=== PATIENT | male | born 1940 | race Caucasian/White ===

== ENCOUNTER 2016-08-22 16:32 | Emergency (ER) | payer OTHER ==
[~2016-08-22] VITALS: Ht 177.8 cm; Wt 116.8 kg
[~2016-08-22 16:32] MED LIST: AMOXTAB PO; B-CO1CAP5 PO; BENZ1CAP90 PO; GLUC1000 PO; LOSA1TAB PO; MISCCAP80 PO; MULT-618 PO; OXYC1TAB3 PO; PANT40TA PO; PRLSR20 PO; SPIR50TA2 PO; SULF800T23 PO
[2016-08-22 16:36] VITALS: BP 128/79; PULSE 92; TEMP 36.7; O2SAT 93; Ht 177.8 cm; Wt 116.8 kg
[2016-08-22] MEDS ORDERED: GABA1CAP4 PO (16:51)
[2016-08-22] MEDS ORDERED: ZLF/50 PO (16:51)
--- NOTE | 2016-08-22 17:05 | EMERGENCY ROOM VISIT NOTE ---
ED Visit Note First contact with patient: 16:38 Staff note: I have reviewed the Patients chart and have discussed this case with my PA. I generally agree with the ED note and findings.
[2016-08-22] MEDS ORDERED: DIPHTHERIA/TETANUS/PERTUSSIS 0.5 ML SYR/VIAL IM. ONE (17:15)
--- NOTE | 2016-08-22 20:25 | EMERGENCY ROOM VISIT NOTE ---
History First contact with patient: 16:38 Chief Complaint: BITE Stated Complaint: DOG BITE TO LEFT THUMB History of Present Illness The patient is a 75 year old male who presents to the Emergency Room with complaints of dog bite to his left thumb that occurred 5 days ago. The patient is currently on Augmentin and Bactrim for an unrelated spine infection. The patient states that he has had some redness and irritation of his thumb. The dog is his own, it has been the household had for the past 9 years since he was a puppy. The animal is up-to-date on its rabies and other appropriate immunizations. The patient himself is not up-to-date on his tetanus. He states there was clear drainage from the puncture wounds today, which is why he presents now to the ER. He rates his discomfort a 0/10. Review of Systems More than 10 systems were reviewed and otherwise negative with the exception of history of present illness. Past Medical/Surgical History Medical Problems: (1) Benign hypertension (2) Calcific coronary arteriosclerosis (3) Cardiomegaly (4) History of DVT (deep vein thrombosis) (5) History of malignant neoplasm of prostate (6) History of peptic ulcer disease (7) Hypersomnia with sleep apnea (8) OBESITY, NOS (9) Parkinson's disease (10) Spinal stenosis of lumbar region Surgical Problems: (1) H/O detached retina repair (2) H/O spinal fusion (3) Hx of cataract surgery (4) Hx of repair of left rotator cuff (5) Status post total left knee replacement Social History Problems: (1) PERIPH VASCULAR DIS NOS Family History Diabetes mellitus FH: [place] (myocardial infarction) FH: alcoholism Heart disease Hypertension Social History Smoking Status: Never Smoker Alcohol Use: none Drug Use: none Marital Status: Housing Status: lives with family Occupation Status: retired Current/Historical Medications Scheduled Amoxicillin & Pot Clavulanate (Amoxicillin/Clavulanate P), 1 TAB PO BID B-Complex W/Biotin & Folic Aci (Super B-Complex), 1 CAP PO DAILY Gabapentin (Gabapentin), 300 MG PO TID Glucosamine Sulfate (Glucosamine Sulfate), 2 TAB PO QAM Losartan Potassium (Cozaar), 25 MG PO DAILY Omeprazole (Prilosec), 20 MG PO BID Pantoprazole (Protonix), 40 MG PO DAILY Probiotic Product (Probiotic), 1 CAP PO QAM Sertraline HCl (Sertraline HCl), 50 MG PO QAM Spironolactone (Aldactone), 50 MG PO DAILY Sulfa/Trimethoprim (Bactrim Ds 800MG/160MG), 1 TAB PO BID Allergies Coded Allergies: No Known Allergies (Verified , `, 08/22/16) Physical Exam Vital Signs Date Time Temp Pulse Resp B/P Pulse Ox O2 Delivery O2 Flow Rate FiO2 08/22/16 16:36 36.7 92 18 128/79 93 Room Air Pain Rating (0-10): 0 Physical Exam VITALS: Vitals are noted on the nurse's note and reviewed by myself. Vital signs stable. GENERAL: Well-developed, well-nourished, white male, who is in no acute distress and resting comfortably. Patient is cooperative with the examination. HEAD: Normocephalic atraumatic. HEART: Regular rate and rhythm without murmurs gallops or rubs. LUNGS: Clear to auscultation bilaterally without wheezes, rales or rhonchi. No retractions or accessory muscle use. SKIN: The skin was with several well-healing puncture wounds to the left thumb. The patient is with full sensation and range of motion. No lymphangitic streaking, cellulitis, or abscess. No purulent drainage appreciated. Medical Decision & Procedures Medications Administered Medications (Trade) Dose Ordered Sig/Bro Route Start Time Stop Time Status Last Admin Dose Admin Diphtheria/ Pertussis/Tetanus Vacc (Adacel Inj) 0.5 ml ONCE ONCE IM. 08/22/16 17:15 08/22/16 17:16 DC 08/22/16 17:08 0.5 ML ED Course Physical exam and history were performed. Nursing notes and EMR were reviewed. Patient appears to have been bitten by his own dog 5 days ago. The patient needs a tetanus booster, and this is updated today. The patient is already on Augmentin and Bactrim for a previous infection, and this appears to be the appropriate regimen for this. I did discuss the case with my attending physician, Dr. Monroe, who also independently evaluated the patient. We feel the patient is stable for discharge home on his current medications. The patient was asked to follow with primary care physician in the next 2-3 days for recheck of his condition. He was otherwise invited back to ER with any new , worsening, or concerning symptoms. The chart was completed utilizing [employer] Speech Voice Recognition Software. Grammatical errors, random word insertions, pronoun errors, and incomplete sentences are an occasional consequence of this system due to software limitations, ambient noise, and hardware issues. Any formal questions or concerns about the content, text, or information contained within the body of this dictation should be directly addressed to the provider for clarification. . Medical Decision Differential diagnosis: Etiologies such as cellulitis, abscess, MRSA infection, DVT, necrotizing fasciitis, dermatitis, drug eruption, as well as others were entertained.. Impression Primary Impression: Dog bite Departure Information Dispostion Home / Self-Care Condition GOOD Referrals Marvin Demarco D.O. (PCP) Forms HOME CARE DOCUMENTATION FORM, IMPORTANT VISIT INFORMATION Patient Instructions My [facility] Additional Instructions You were seen and evaluated today on an emergency basis only. This is not a substitute for, or an effort to provide, complete comprehensive medical care. It is not possible to recognize and treat all injuries or illnesses in a single emergency department visit. For this reason it is recommended that you followup with your primary care physician on Thursday or Thursday for ongoing care and evaluation. Continue your Augmentin and Bactrim. You are welcome to return to the emergency department anytime with new, worsening, or concerning symptoms.
== END 2016-08-22 17:21 | disposition home or self-care (01) ==
LOC: C.EDB 16:33 → C.EDD 17:21
DX: S61.002A Unspecified open wound of left thumb without damage to nail, initial encounter (principal); W54.0XXA Bitten by dog, initial encounter; I10 Essential (primary) hypertension; Z85.46 Personal history of malignant neoplasm of prostate; Z96.652 Presence of left artificial knee joint; Z23 Encounter for immunization

== ENCOUNTER → 2016-10-28 | Outpatient (CLI) | payer OTHER ==
[~2016-10-28] MED LIST changes: +ANT25 PO; -BENZ1CAP90 PO; +GABA1CAP4 PO; +MECL1TAB42 PO; -MULT-618 PO; -OXYC1TAB3 PO; +ZLF/50 PO
[2016-10-28 09:43] LABS: BASO % 0.6 %; BASO ABS # 0.04 K/uL (0-0.2); COMPLETE YES; EOS % 4.1 %; HEMATOCRIT 43.4 % (42-52); IG% 0.4 %; LYMPH % 22.4 %; LYMPH ABS # 1.57 K/uL (1.2-3.4); MEAN CELL VOLUME 94.6 fL (80-100); MEAN CORPUSCULAR HGB CONC 33.9 g/dl (32-36); MEAN PLATELET VOLUME 9.5 fL (7.4-10.4); NEUT % 62.5 %; PLATELET COUNT 261 K/uL (130-400); RED BLOOD COUNT 4.59 M/uL (4.7-6.1)
[2016-10-28 09:51] LABS: ALT/SGPT 30 U/L (12-78); AST/SGOT 18 U/L (15-37); BLOOD UREA NITROGEN 10 mg/dl (7-18); BUN/CREATININE RATIO 10.9 (10-20); C-REACTIVE PROTEIN < 0.29 mg/dl (0-0.29); CARBON DIOXIDE 22 mmol/L (21-32); CHLORIDE 106 mmol/L (98-107); CREATININE 0.94 mg/dl (0.60-1.40); GLUCOSE 107 mg/dl (70-99); POTASSIUM 3.8 mmol/L (3.5-5.1); SODIUM 139 mmol/L (136-145)
[2016-10-28 09:54] LABS: ALB/GLOB RATIO 1.1 (0.9-2); ALKALINE PHOSPHATASE 82 U/L (45-117)
[2016-10-28 09:59] LABS: CALCIUM 8.7 mg/dl (8.5-10.1)
== END | disposition home or self-care (01) ==
LOC: C.LAB1850 08:31
PROVIDERS: ATTEND Physician Assistant
DX: A49.9 Bacterial infection, unspecified (principal)

== ENCOUNTER 2016-12-26 10:50 | Emergency (ER) | payer OTHER ==
[~2016-12-26] VITALS: Ht 177.8 cm; Wt 117.7 kg
[~2016-12-26 10:50] MED LIST changes: -ANT25 PO; -MECL1TAB42 PO
[2016-12-26 10:54] VITALS: TEMP 36.5
[2016-12-26] MEDS ORDERED: ANT25 PO (11:20)
[2016-12-26] MEDS ORDERED: SODIUM CHLORIDE 0.9% 1000ML 1,000 ML IV SCH (11:28)
[2016-12-26] MEDS ORDERED: SODIUM CHLORIDE 0.9% 500ML 500 ML IV STA (11:28)
[2016-12-26] MEDS ORDERED: MECLIZINE HCL 25 MG TAB PO STA (11:28)
[2016-12-26] MEDS ORDERED: ONDANSETRON INJ 2 MG/ML 2 ML VIAL IV STA (11:28)
[2016-12-26 11:42] VITALS: Ht 177.8 cm; Wt 117.7 kg
--- NOTE | 2016-12-26 11:48 | DIAGNOSTIC IMAGING REPORT ---
CHEST ONE VIEW PORTABLE CLINICAL HISTORY: Stroke mental status change COMPARISON STUDY: 04/29/2016 FINDINGS: The bones soft tissues and hemidiaphragms are normal. The cardiomediastinal silhouette is normal. The lungs are clear. The pulmonary vasculature is normal. IMPRESSION: Negative chest. The above report was generated using voice recognition software. It may contain grammatical, syntax or spelling errors. Electronically signed by: Ramírez Hyde M.D. 12/26/2016 11:47 AM Dictated Date/Time: 12/26/2016 11:46 AM
[2016-12-26 11:52] VITALS: O2SAT 95
--- NOTE | 2016-12-26 11:54 | EMERGENCY ROOM VISIT NOTE ---
History Report prepared by Louise: Leeann Robles Under the Supervision of: Dr. Vic Lowry M.D. First contact with patient: 11:20 Chief Complaint: DIZZY Stated Complaint: DIZZY, CANDY IS GOING TO CALL Nursing Triage Summary: pt reports he presented to his PCP office this AM upon assessment he had low BP, he stated he told the nurse he felt dizzy and nauseous the nurse recommended he come to the ER to be seen I did orthostatic vital signs and requested he turn off his stimulator he was not dizzy during the vital signs pt did report he took his BP medications this morning History of Present Illness The patient is a 76 year old male who presents to the Emergency Room with complaints of intermittent dizziness that started 6 days ago. The dizziness is worse with movements and resolves after lying still. Dr. Arrieta, the patient's PCP , called in about the patient and reported that the patient has been experiencing severe vertigo for the last 6 days. He reported that the patient is unable to tolerate PO fluids and is falling at home. The patient has chronic low back pain and had a stimulator placed 1 week ago. The dizziness started the day after the stimulator was placed. The patient denies abdominal pain. Source of History: patient Onset: 6 days ago Position: head Quality: other (dizziness) Timing: intermittent Modifying Factors (Worsening): movement Modifying Factors (Relieving): other (lying still) Associated Symptoms: + back pain (chronic), No abdominal pain Review of Systems See HPI for pertinent positives & negatives. A total of 10 systems reviewed and were otherwise negative. Past Medical & Surgical Medical Problems: (1) Benign hypertension (2) Calcific coronary arteriosclerosis (3) Cardiomegaly (4) History of DVT (deep vein thrombosis) (5) History of malignant neoplasm of prostate (6) History of peptic ulcer disease (7) Hypersomnia with sleep apnea (8) OBESITY, NOS (9) Parkinson's disease (10) Spinal stenosis of lumbar region Surgical Problems: (1) H/O detached retina repair (2) H/O spinal fusion (3) Hx of cataract surgery (4) Hx of repair of left rotator cuff (5) Status post total left knee replacement Social History Problems: (1) PERIPH VASCULAR DIS NOS Family History Diabetes mellitus FH: [place] (myocardial infarction) FH: alcoholism Heart disease Hypertension Social History Smoking Status: Never Smoker Alcohol Use: none Drug Use: none Marital Status: Housing Status: lives with family Occupation Status: retired Current/Historical Medications Scheduled Amoxicillin & Pot Clavulanate (Amoxicillin/Clavulanate P), 1 TAB PO BID Glucosamine Sulfate (Glucosamine Sulfate), 2 TAB PO QAM Losartan Potassium (Cozaar), 25 MG PO DAILY Meclizine HCl (Meclizine HCl), 25 MG PO TID Meclizine Hcl (Meclizine Hcl), 1 TAB PO QID Omeprazole (Prilosec), 20 MG PO BID Pantoprazole (Protonix), 40 MG PO DAILY Probiotic Product (Probiotic), 1 CAP PO QAM Sertraline HCl (Sertraline HCl), 50 MG PO QAM Spironolactone (Aldactone), 50 MG PO DAILY Sulfa/Trimethoprim (Bactrim Ds 800MG/160MG), 1 TAB PO BID Allergies Coded Allergies: No Known Allergies (Verified , `, 08/22/16) Physical Exam Vital Signs Date Time Temp Pulse Resp B/P (MAP) Pulse Ox O2 Delivery O2 Flow Rate FiO2 12/26/16 12:31 73 16 122/79 94 Room Air 12/26/16 11:52 95 Room Air 12/26/16 11:14 79 98/74 98 Room Air 89 111/76 80 108/80 12/26/16 10:54 36.5 98 18 115/71 95 Room Air Physical Exam GENERAL: Patient is a healthy-appearing well-nourished male HEAD: Normocephalic atraumatic EYES: Ocular movements intact pupils equal and react to light OROPHARYNX mucous membranes are moist no exudates present no erythema or edema present NECK: Supple no nuchal rigidity CHEST: Good equal expansion LUNGS: Clear and equal to auscultation CARDIAC: Normal S1 and S2 ABDOMEN: Soft nontender no guarding BACK: No CVA tenderness EXTREMITIES: No pain upon palpation normal muscle strength in all groups no clubbing cyanosis or edema NEURO: Patient is following commands and answering questions appropriately. Alert and oriented x3 Cranial Nerves 2-12 grossly intact Medical Decision & Procedures ER Provider Diagnostic Interpretation: Radiology results as stated below per my review and radiologist interpretation: CHEST ONE VIEW PORTABLE FINDINGS: The bones soft tissues and hemidiaphragms are normal. The cardiomediastinal silhouette is normal. The lungs are clear. The pulmonary vasculature is normal. IMPRESSION: Negative chest. The above report was generated using voice recognition software. It may contain grammatical, syntax or spelling errors. Electronically signed by: Ramírez Hyde M.D. 12/26/2016 11:47 AM Dictated Date/Time: 12/26/2016 11:46 AM HEAD WITHOUT CONTRAST (CT) Findings: The paranasal sinuses and mastoid air cells are clear. Considerable chronic small vessel change in the periventricular deep white matter regions. Chronic small vessel change in the left and to lesser extent right cerebellum. No acute intracranial hemorrhage. No midline shift. Impression: Considerable chronic small vessel change. No acute process. The above report was generated using voice recognition software. It may contain grammatical, syntax or spelling errors. Electronically signed by: Ramírez Hyde M.D. 12/26/2016 12:28 PM Dictated Date/Time: 12/26/2016 12:26 PM Laboratory Results 12/26/16 11:38 Red Blood Count 4.44, Mean Corpuscular Volume 93.7, Mean Corpuscular Hemoglobin 31.8, Mean Corpuscular Hemoglobin Concent 33.9, Mean Platelet Volume 9.1, Neutrophils (%) (Auto) 68.2, Lymphocytes (%) (Auto) 18.0, Monocytes (%) (Auto) 9.4, Eosinophils (%) (Auto) 3.6, Basophils (%) (Auto) 0.4, Neutrophils # (Auto) 4.72, Lymphocytes # (Auto) 1.25, Monocytes # (Auto) 0.65, Eosinophils # (Auto) 0.25, Basophils # (Auto) 0.03 12/26/16 11:38 Test 12/26/16 11:34 12/26/16 11:38 Bedside Prothrombin Time INR 1.0 (0.9-1.1) White Blood Count 6.93 K/uL (4.8-10.8) Red Blood Count 4.44 M/uL (4.7-6.1) Hemoglobin 14.1 g/dL (14.0-18.0) Hematocrit 41.6 % (42-52) Mean Corpuscular Volume 93.7 fL (80-100) Mean Corpuscular Hemoglobin 31.8 pg (25-34) Mean Corpuscular Hemoglobin Concent 33.9 g/dl (32-36) Platelet Count 266 K/uL (130-400) Mean Platelet Volume 9.1 fL (7.4-10.4) Neutrophils (%) (Auto) 68.2 % Lymphocytes (%) (Auto) 18.0 % Monocytes (%) (Auto) 9.4 % Eosinophils (%) (Auto) 3.6 % Basophils (%) (Auto) 0.4 % Neutrophils # (Auto) 4.72 K/uL (1.4-6.5) Lymphocytes # (Auto) 1.25 K/uL (1.2-3.4) Monocytes # (Auto) 0.65 K/uL (0.11-0.59) Eosinophils # (Auto) 0.25 K/uL (0-0.5) Basophils # (Auto) 0.03 K/uL (0-0.2) RDW Standard Deviation 46.6 fL (36.4-46.3) RDW Coefficient of Variation 13.6 % (11.5-14.5) Immature Granulocyte % (Auto) 0.4 % Immature Granulocyte # (Auto) 0.03 K/uL (0.00-0.02) Anion Gap 7.0 mmol/L (3-11) Est Creatinine Clear Calc Drug Dose 84.1 ml/min Estimated GFR () 86.6 Estimated GFR (Non- 74.7 BUN/Creatinine Ratio 13.9 (10-20) Calcium Level 9.0 mg/dl (8.5-10.1) Total Creatine Kinase 39 U/L (39-308) Creatine Kinase MB 0.8 ng/ml (0.5-3.6) Creatine Kinase MB Ratio 2.1 (0-3.0) Troponin I < 0.015 ng/ml (0-0.045) Labs reviewed by ED physician. Medications Administered Medications (Trade) Dose Ordered Sig/Bro Route Start Time Stop Time Status Last Admin Dose Admin Sodium Chloride 1,000 ml @ 50 mls/hr Q20H IV 12/26/16 11:28 12/26/16 14:35 DC 12/26/16 11:28 50 MLS/HR Meclizine HCl (Antivert Tab) 25 mg NOW STAT PO 12/26/16 11:28 12/26/16 11:30 DC 12/26/16 11:51 25 MG Sodium Chloride 500 ml @ 999 mls/hr Q31M STAT IV 12/26/16 11:28 12/26/16 11:58 DC 12/26/16 11:28 999 MLS/HR Ondansetron HCl (Zofran Inj) 4 mg NOW STAT IV 12/26/16 11:28 12/26/16 11:30 DC 12/26/16 11:28 4 MG ECG Indication: weakness Rate (beats per minute): 83 Rhythm: normal sinus Findings: no acute ischemic change, no ectopy, other (old inferior infarct) ED Course 1124: Past medical records reviewed. The patient was evaluated in room C10. A complete history and physical examination was performed. 1128: Ordered Zofran Inj 4 mg IV, Sodium Chloride 500 ml @ 999 mls/hr IV, Meclizine HCl 25 mg PO, Sodium Chloride 1000 ml @ 50 mls/hr IV 1235: I reassessed the patient and offered him admission. The patient would like to go home but he wants me to talk to his when she comes back first. 1315: Upon reexamination the patient is doing well. After discussing things with his , he would like to go home. I discussed results and treatment plan with the patient. He verbalizes agreement and understanding. The patient is ready for discharge. Medical Decision Differential diagnosis: Etiologies such as benign positional vertigo, dehydration, hypovolemia, anemia, tumor, infection, hypoglycemia, electrolyte abnormalities, cardiac sources, intracerebral event, toxicologic, neurologic, as well as others were entertained. This is a 76-year-old male who presents emergency department complaining of dizziness. The patient has a history of vertigo in the past admitted believe his symptoms are consistent with vertigo. Patient was given meclizine here in the emergency department. Repeat examination revealed improvement the patient' s symptoms. I did offer the patient admission however he wishes to be discharged home. Her going to try bumping up his meclizine to 4 times a day and I recommended follow-up with your nose and throat. Patient and are in agreement with the treatment plan. Medication Reconcilliation Current Medication List: was personally reviewed by me Blood Pressure Screening Patient's blood pressure: Normal blood pressure Impression Primary Impression: Vertigo Scribe Attestation The scribe's documentation has been prepared under my direction and personally reviewed by me in its entirety. I confirm that the note above accurately reflects all work, treatment, procedures, and medical decision making performed by me. Departure Information Dispostion Home / Self-Care Prescriptions Meclizine Hcl (MECLIZINE HCL) 25 Mg Tab 1 TAB PO QID for 30 Days, #120 TAB Prov: Vic Lowry MD 12/26/16 Referrals Marvin Demarco D.O. (PCP) Forms HOME CARE DOCUMENTATION FORM, IMPORTANT VISIT INFORMATION Patient Instructions ED [facility] Vertigo, My [facility] Additional Instructions You have been examined and treated today on an emergency basis only. This is not a substitute for, or an effort to provide, complete comprehensive medical care. It is impossible to recognize and treat all injuries or illnesses in a single emergency department visit. It is therefore important that you follow up closely with DR Demarco. Call as soon as possible for an appointment. Thank you for your time and consideration. I look forward to speaking with you again soon. Please don't hesitate to call us if you have any questions.
[2016-12-26 11:57] LABS: BASO % 0.4 %; BASO ABS # 0.03 K/uL (0-0.2); COMPLETE YES; EOS % 3.6 %; HEMATOCRIT 41.6 % (42-52); IG% 0.4 %; LYMPH ABS # 1.25 K/uL (1.2-3.4); MEAN CELL VOLUME 93.7 fL (80-100); MEAN CORPUSCULAR HEMOGLOBIN 31.8 pg (25-34); MEAN CORPUSCULAR HGB CONC 33.9 g/dl (32-36); MEAN PLATELET VOLUME 9.1 fL (7.4-10.4); MONO % 9.4 %; NEUT % 68.2 %; PLATELET COUNT 266 K/uL (130-400); RED BLOOD COUNT 4.44 M/uL (4.7-6.1); WHITE BLOOD COUNT 6.93 K/uL (4.8-10.8)
[2016-12-26 12:09] LABS: BLOOD UREA NITROGEN 14 mg/dl (7-18); BUN/CREATININE RATIO 13.9 (10-20); CARBON DIOXIDE 25 mmol/L (21-32); CHLORIDE 108 mmol/L (98-107); CREATININE 0.99 mg/dl (0.60-1.40); GLUCOSE 108 mg/dl (70-99); POTASSIUM 3.8 mmol/L (3.5-5.1); SODIUM 140 mmol/L (136-145)
[2016-12-26 12:14] LABS: CKMB/CK RATIO 2.1 (0-3.0)
--- NOTE | 2016-12-26 12:29 | DIAGNOSTIC IMAGING REPORT ---
HEAD WITHOUT CONTRAST (CT) CT DOSE: 614.27 mGy.cm HISTORY: Mental status change Stroke TECHNIQUE: Multiaxial CT images of the head were performed without the use of intravenous contrast. A dose lowering technique was utilized adhering to the principles of ALARA. Comparison: None. Findings: The paranasal sinuses and mastoid air cells are clear. Considerable chronic small vessel change in the periventricular deep white matter regions. Chronic small vessel change in the left and to lesser extent right cerebellum. No acute intracranial hemorrhage. No midline shift. Impression: Considerable chronic small vessel change. No acute process. The above report was generated using voice recognition software. It may contain grammatical, syntax or spelling errors. Electronically signed by: Ramírez Hyde M.D. 12/26/2016 12:28 PM Dictated Date/Time: 12/26/2016 12:26 PM
[2016-12-26 12:31] VITALS: BP 122/79; PULSE 73; O2SAT 94
[2016-12-26] MEDS ORDERED: MECL1TAB42 PO (13:23)
== END 2016-12-26 14:11 | disposition home or self-care (01) ==
LOC: C.EDB 10:52 → C.EDC 14:11
DX: R42 Dizziness and giddiness (principal); M54.5 Low back pain; G89.29 Other chronic pain; I25.84 Coronary atherosclerosis due to calcified coronary lesion; I51.7 Cardiomegaly; G47.10 Hypersomnia, unspecified; E66.9 Obesity, unspecified; G20 Parkinson's disease; M48.06 Spinal stenosis, lumbar region; Z96.9 Presence of functional implant, unspecified; Z86.718 Personal history of other venous thrombosis and embolism; Z85.46 Personal history of malignant neoplasm of prostate; I73.9 Peripheral vascular disease, unspecified; Z96.652 Presence of left artificial knee joint

== ENCOUNTER 2017-01-04 13:56 | Observation (INO) | payer OTHER ==
[~2017-01-04] VITALS: Ht 177.8 cm; Wt 113.0 kg
[~2017-01-04 13:56] MED LIST changes: +ANT25 PO; -B-CO1CAP5 PO; -GABA1CAP4 PO; +MECL1TAB42 PO
[2017-01-04] MEDS ORDERED: SODIUM CHLORIDE 0.9% 1000ML 1,000 ML IV STA (14:19)
[2017-01-04] MEDS ORDERED: ONDANSETRON INJ 2 MG/ML 2 ML VIAL IV STA (14:28)
[2017-01-04] MEDS ORDERED: DIAZEPAM INJ 5 MG/ML 2 ML CARP IV STA ×2 (14:28→16:30)
[2017-01-04 14:42] LABS: BASO % 0.5 %; BASO ABS # 0.03 K/uL (0-0.2); COMPLETE YES; EOS % 3.9 %; HEMATOCRIT 42.7 % (42-52); IG% 0.2 %; LYMPH % 17.6 %; LYMPH ABS # 1.03 K/uL (1.2-3.4); MEAN CELL VOLUME 91.8 fL (80-100); MEAN CORPUSCULAR HEMOGLOBIN 32.7 pg (25-34); MEAN CORPUSCULAR HGB CONC 35.6 g/dl (32-36); MEAN PLATELET VOLUME 8.7 fL (7.4-10.4); MONO % 10.1 %; NEUT % 67.7 %; PLATELET COUNT 221 K/uL (130-400); RED BLOOD COUNT 4.65 M/uL (4.7-6.1); WHITE BLOOD COUNT 5.84 K/uL (4.8-10.8)
[2017-01-04] MEDS ORDERED: OPTIRAY 320 IV PRN (14:45)
[2017-01-04 14:57] LABS: PROTHROMBIN TIME (PATIENT) 10.8 SECONDS (9.0-12.0)
[2017-01-04 14:59] LABS: ALT/SGPT 30 U/L (12-78); BLOOD UREA NITROGEN 15 mg/dl (7-18); BUN/CREATININE RATIO 12.2 (10-20); CALCIUM 8.6 mg/dl (8.5-10.1); CARBON DIOXIDE 24 mmol/L (21-32); CHLORIDE 105 mmol/L (98-107); GLUCOSE 139 mg/dl (70-99); MAGNESIUM 1.8 mg/dl (1.8-2.4); POTASSIUM 3.7 mmol/L (3.5-5.1); SODIUM 139 mmol/L (136-145)
[2017-01-04 15:10] LABS: ALKALINE PHOSPHATASE 91 U/L (45-117); AST/SGOT 19 U/L (15-37)
[2017-01-04] MEDS ORDERED: ACETAMINOPHEN 500 MG TAB PO STA (16:30)
--- NOTE | 2017-01-04 16:32 | DIAGNOSTIC IMAGING REPORT ---
NECK ANGIO WITH CONTRAST HISTORY: Mental status change vertigo TECHNIQUE: Multiaxial CT images of the neck were performed following the intravenous administration of contrast to evaluate the major cervical vessels. Maximum intensity projection images were also obtained. All measurements were calculated based on NASCET criteria. A dose lowering technique was utilized adhering to the principles of ALARA. COMPARISON STUDY: None. FINDINGS: The aortic arch and proximal great vessels are widely patent. There is no significant stenosis, occlusion, or dissection identified within the bilateral common carotid, internal carotid, or vertebral arteries. Moderate plaque formation of the right and to lesser extent left carotid bifurcation IMPRESSION: No significant stenosis, occlusion, or dissection identified within the carotid or vertebral arteries. Moderate plaque formation The above report was generated using voice recognition software. It may contain grammatical, syntax or spelling errors. Electronically signed by: Ramírez Hyde M.D. 01/04/2017 4:30 PM Dictated Date/Time: 01/04/2017 4:27 PM
--- NOTE | 2017-01-04 16:35 | DIAGNOSTIC IMAGING REPORT ---
ANGIOGRAPHY HEAD COMBO HISTORY: Vertigo mental status change TECHNIQUE: Multiaxial CT images of the head were performed both before and after the intravenous administration of contrast to evaluate the major cerebral vessels. Maximum intensity projection images were also obtained. A dose lowering technique was utilized adhering to the principles of ALARA. COMPARISON: None. FINDINGS: There is no mass, hematoma, midline shift, or acute infarct. Chronic small vessel change throughout both cerebral hemispheres unchanged in the prior exam. Visualized intracranial internal carotid arteries, distal vertebral arteries, and basilar artery are widely patent. There is no significant stenosis, occlusion, or aneurysm seen within the bilateral ACAs, MCAs, or bilingual customer service specialist. Moderate atherosclerotic change of the carotid bifurcations IMPRESSION: No significant stenosis, occlusion, or aneurysm within the [place]. Moderate atherosclerotic change of the carotid bifurcations. Considerable chronic small vessel change throughout both cerebral hemispheres. No acute intracranial abnormality. The above report was generated using voice recognition software. It may contain grammatical, syntax or spelling errors. Electronically signed by: Ramírez Hyde M.D. 01/04/2017 4:34 PM Dictated Date/Time: 01/04/2017 4:31 PM
[2017-01-04 16:45] LABS: URINE APPEARANCE CLEAR (CLEAR); URINE BILIRUBIN NEG (NEG); URINE COLOR YELLOW; URINE EPITHELIAL CELL AUTO 20-30 /lpf (0-5); URINE NITRITE NEG (NEG); URINE PH 5.5 (4.5-7.5); URINE SPECIFIC GRAVITY 1.036 (1.000-1.030); UROBILINOGEN NEG (NEG)
[2017-01-04 16:48] LABS: MANUAL MICROSCOPIC REQUIRED? NO; REVIEW REQ? NO
[2017-01-04] MEDS ORDERED: LOSARTAN POTASSIUM 25 MG TAB PO PRN (19:15)
[2017-01-04] MEDS ORDERED: ONDANSETRON INJ 2 MG/ML 2 ML VIAL IV PRN (19:15)
[2017-01-04] MEDS ORDERED: ACETAMINOPHEN 325 MG TAB PO PRN (19:15)
[2017-01-04] MEDS ORDERED: MAGNESIUM HYDROXIDE SUSP 30 ML UDC PO PRN (19:15)
[2017-01-04] MEDS ORDERED: SPIRONOLACTONE 100 MG TAB PO PRN (19:15)
[2017-01-04] MEDS ORDERED: DIAZEPAM INJ 5 MG/ML 2 ML CARP IV PRN (19:15)
--- NOTE | 2017-01-04 19:25 | History and Physical ---
History & Physical Date & Time of Service: Jan 04, 2017 at 19:10 Chief Complaint: Vertigo Primary Care Physician: Marvin Demarco D.O. History of Present Illness Source: patient, spouse 76 y/o M c/o intractable vertigo. Pt states he had been having very minor episodes of vertigo that would come and go for about 3 months. Starting about 5 weeks ago, these episodes became more frequent and intense and pt started to have falls due to them. He was seen by his PCP and started on meclizine, however this did not help. He was given instructions on Janie's maneuver, but also no help. He was seen in the ED about a week ago and the meclizine dose was increased, however this also did not help. Pt was referred to ENT, however the soonest he could be seen was 01/17. His vertigo was worse today, so he came to the ED for further evaluation. Pt states that prior to 3 months ago, he had no issues with vertigo in the past. He does get nauseated at times, but rare emesis. His vertigo is room spinning. Pt was given valium in the ED and this has helped somewhat. He is now not having vertigo at rest or with sitting, but he is unable to walk. Pt denies fever, SOB, chest pain, abd pain, v/c/d, LE pain or swelling. Pt states he has early Parkinson's, but that as long as he takes CoQ10 2400mg daily his sx are controlled. Sx is UE tremor. Past Medical/Surgical History Medical Problems: (1) Benign hypertension Status: Chronic (2) Calcific coronary arteriosclerosis Permanent Comment: noted on CT 10/31/14 Status: Chronic (3) Cardiomegaly Permanent Comment: noted on CT 10/31/14 Status: Chronic (4) History of DVT (deep vein thrombosis) Permanent Comment: postop after TKA Status: Chronic (5) History of malignant neoplasm of prostate Status: Chronic (6) History of peptic ulcer disease Status: Chronic (7) Hypersomnia with sleep apnea Status: Chronic (8) OBESITY, NOS Status: Chronic (9) Parkinson's disease Status: Chronic (10) Spinal stenosis of lumbar region Status: Chronic Surgical Problems: (1) H/O detached retina repair Status: Chronic (2) H/O spinal fusion Status: Chronic (3) Hx of cataract surgery Status: Chronic (4) Hx of repair of left rotator cuff Status: Chronic (5) Status post total left knee replacement Status: Chronic Social History Problems: (1) PERIPH VASCULAR DIS NOS Status: Chronic Family History Family history was reviewed; no changes noted. Social History Smoking Status: Never Smoker Alcohol Use: occasionally (rare) Drug Use: none Marital Status: Housing status: lives with family Occupational Status: retired Immunizations History of Influenza Vaccine: Yes Influenza Vaccine Date: Mar 13, 2014 History of Tetanus Vaccine?: Yes Tetanus Immunization Date: Jan 20, 2011 History of Pneumococcal: Yes Pneumococcal Date: Feb 06, 2009 History of Hepatitis B Vaccine: No Multi-Drug Resistant Organisms History of MDRO: No Allergies Coded Allergies: No Known Allergies (Verified , `, 08/22/16) Home Medications Scheduled Amoxicillin & Pot Clavulanate (Amoxicillin/Clavulanate P), 1 TAB PO BID Glucosamine Sulfate (Glucosamine Sulfate), 2 TAB PO QAM Losartan Potassium (Cozaar), 25 MG PO DAILY Meclizine HCl (Meclizine HCl), 25 MG PO QID Omeprazole (Prilosec), 20 MG PO BID Probiotic Product (Probiotic), 1 CAP PO QAM Sertraline HCl (Sertraline HCl), 50 MG PO QAM Spironolactone (Aldactone), 50 MG PO DAILY Sulfa/Trimethoprim (Bactrim Ds 800MG/160MG), 1 TAB PO BID Review of Systems reviewed and neg Physical Exam Vital Signs Date Time Temp Pulse Resp B/P (MAP) Pulse Ox O2 Delivery O2 Flow Rate FiO2 01/04/17 18:35 69 16 122/75 95 Room Air 01/04/17 17:31 72 18 146/86 94 Room Air 01/04/17 15:34 86 16 119/86 91 Room Air 01/04/17 15:04 94 16 136/83 91 Room Air 01/04/17 15:04 94 01/04/17 14:44 95 Room Air 01/04/17 14:41 90 115/75 105 134/71 105 136/83 01/04/17 14:00 36.5 105 18 110/69 95 Room Air General Appearance: WD/WN, no apparent distress Head: normocephalic, atraumatic Eyes: normal inspection, EOMI ENT: hearing grossly normal Neck: supple Respiratory/Chest: normal breath sounds, no respiratory distress Cardiovascular: regular rate, rhythm, no edema Abdomen/GI: non tender, soft Extremities/Musculoskelatal: no calf tenderness, no pedal edema Neurologic/Psych: burlap bag sewer II-XII nml as tested, alert, normal mood/affect, oriented x 3 Skin: normal color, warm/dry Diagnostics Laboratory Results Results Past 24 Hours Test 01/04/17 14:35 01/04/17 16:25 01/04/17 19:03 Range/Units White Blood Count 5.84 4.8-10.8 K/uL Red Blood Count 4.65 4.7-6.1 M/uL Hemoglobin 15.2 14.0-18.0 g/dL Hematocrit 42.7 42-52 % Mean Corpuscular Volume 91.8 80-100 fL Mean Corpuscular Hemoglobin 32.7 25-34 pg Mean Corpuscular Hemoglobin Concent 35.6 32-36 g/dl Platelet Count 221 130-400 K/uL Mean Platelet Volume 8.7 7.4-10.4 fL Neutrophils (%) (Auto) 67.7 % Lymphocytes (%) (Auto) 17.6 % Monocytes (%) (Auto) 10.1 % Eosinophils (%) (Auto) 3.9 % Basophils (%) (Auto) 0.5 % Neutrophils # (Auto) 3.95 1.4-6.5 K/uL Lymphocytes # (Auto) 1.03 1.2-3.4 K/uL Monocytes # (Auto) 0.59 0.11-0.59 K/uL Eosinophils # (Auto) 0.23 0-0.5 K/uL Basophils # (Auto) 0.03 0-0.2 K/uL RDW Standard Deviation 45.2 36.4-46.3 fL RDW Coefficient of Variation 13.4 11.5-14.5 % Immature Granulocyte % (Auto) 0.2 % Immature Granulocyte # (Auto) 0.01 0.00-0.02 K/uL Prothrombin Time 10.8 9.0-12.0 SECONDS Prothromb Time International Ratio 1.0 0.9-1.1 Activated Partial Thromboplast Time 26.7 21.0-31.0 SECONDS Partial Thromboplastin Ratio 1.0 Sodium Level 139 136-145 mmol/L Potassium Level 3.7 3.5-5.1 mmol/L Chloride Level 105 98-107 mmol/L Carbon Dioxide Level 24 21-32 mmol/L Anion Gap 10.0 3-11 mmol/L Blood Urea Nitrogen 15 7-18 mg/dl Creatinine 1.20 0.60-1.40 mg/dl Est Creatinine Clear Calc Drug Dose 66.2 ml/min Estimated GFR () 68.6 Estimated GFR (Non- 59.2 BUN/Creatinine Ratio 12.2 10-20 Random Glucose 139 70-99 mg/dl Calcium Level 8.6 8.5-10.1 mg/dl Magnesium Level 1.8 1.8-2.4 mg/dl Total Bilirubin 0.7 0.2-1 mg/dl Direct Bilirubin 0.2 0-0.2 mg/dl Aspartate Amino Transf (AST/SGOT) 19 15-37 U/L Alanine Aminotransferase (ALT/SGPT) 30 12-78 U/L Alkaline Phosphatase 91 45-117 U/L Troponin I < 0.015 0-0.045 ng/ml Total Protein 7.1 6.4-8.2 gm/dl Albumin 3.5 3.4-5.0 gm/dl Lipase 183 73-393 U/L Thyroid Stimulating Hormone (TSH) 1.520 0.300-4.500 uIu/ml Urine Color YELLOW Urine Appearance CLEAR CLEAR Urine pH 5.5 4.5-7.5 Urine Specific [place] 1.036 1.000-1.030 Urine Protein NEG NEG Urine Glucose (UA) NEG NEG Urine Ketones NEG NEG Urine Occult Blood NEG NEG Urine Nitrite NEG NEG Urine Bilirubin NEG NEG Urine Urobilinogen NEG NEG Urine Leukocyte Esterase SMALL NEG Urine WBC (Auto) 5-10 0-5 /hpf Urine RBC (Auto) 0-4 0-4 /hpf Urine Hyaline Casts (Auto) 1-5 0-5 /lpf Urine Epithelial Cells (Auto) 20-30 0-5 /lpf Urine Bacteria (Auto) NEG NEG Microbiology Results 01/04/17 Urine Culture, Received Pending Diagnostic Radiology CTA head and neck: neg for acute, moderate artherosclerotic plaque R>L carotid bifurcation Impression Assessment and Plan 76 y/o M who was admitted for observation for intractable vertigo Vertigo: failed outpt meclizine at multiple doses and Janie's maneuver Was to see ENT but earlier appt is weeks away Some improvement with IV valium, however not able to ambulate Valium, meclizine PRN ENT c/s pending CBC, PRP, UA WNL CTA head/neck as noted Unable to obtain MRI due to recent spinal stimulator placement Discussed acupuncture with pt if ongoing issues on d/c'd HTN: pt states he has been taking his BP in the AM and only taking his losartan and spironolactone PRN for elevation Monitor Parkinson's: UE tremor controlled with high dose CoQ10 to bring in tomorrow GERD: taking PRN Hx of bleeding ulcers Spinal stenosis: s/p OR with hx of infection Had PICC and IV abx for months, now on bactrim, amoxicillin and will continue Probiotic Recent spinal stimulator placement Hx of DVT: occurred s/p knee replacement years ago and no recurrence No longer on anticoag Other: Full code Reg diet Hold on DVT proph for likely short admission Level of Care Med/Surg Resuscitation Status FULL RESUSCITATION VTE Prophylaxis VTE Risk Assessment Done? Y/N: Yes Risk Level: Low
[2017-01-04] MEDS ORDERED: IV FLUIDS COMPLETED PRN (20:15)
[2017-01-04 20:31] VITALS: BMI 35.7
[2017-01-04 20:34] VITALS: BP 135/80; PULSE 71; TEMP 36.5; Ht 177.8 cm; Wt 113.0 kg
--- NOTE | 2017-01-04 20:43 | EMERGENCY ROOM VISIT NOTE ---
History Report prepared by Louise: Diana Le Under the Supervision of: Dr. Konstantin Canseco M.D. First contact with patient: 14:14 Chief Complaint: VERTIGO Stated Complaint: VERTIGO Nursing Triage Summary: Pt states hx vertigo. Taking 4 pills a day and it's not working. Dizzy, almost fell the other day. History of Present Illness The patient is a 76 year old male who presents to the Emergency Room with complaints of worsening vertigo for the past 1 month. He is accompanied by his . He was seen here in the ED last week for the same symptoms and reports his Meclizine dose was increased to 4 tablets a day, but states he now feels worse than before. Certain movements worsen his symptoms. He also complains of a persistent headache and some intermittent nausea. The patient almost fell over a few days ago from his dizziness, but states he was able to catch himself with soft furniture. His reports he was offered remaining in the hospital for further evaluation after his last ED visit, but the patient refused. Pt denies LOC, fevers, chills, diaphoresis, visual changes, neck pain, chest pain, breathing difficulties, vomiting, abdominal pain, back pain, melena, hematochezia, urinary symptoms, numbness, weakness, lymphadenopathy, rash, or other complaints. The patient had a spinal stimulator placed on December 23, 2016, by Dr. Arevalo, an orthopedic surgeon in [place], [place]. His believes the stimulator is MRI compatible. Source of History: patient Onset: 1 month [employer]IVET [employer] Position: other (global) Quality: other (vertigo) Timing: worsening Modifying Factors (Worsening): movement Associated Symptoms: + headache, + nausea Review of Systems See HPI for pertinent positives and negatives. A total of ten systems were reviewed and were otherwise negative. Past Medical & Surgical Medical Problems: (1) Benign hypertension (2) Calcific coronary arteriosclerosis (3) Cardiomegaly (4) History of DVT (deep vein thrombosis) (5) History of malignant neoplasm of prostate (6) History of peptic ulcer disease (7) Hypersomnia with sleep apnea (8) OBESITY, NOS (9) Parkinson's disease (10) Spinal stenosis of lumbar region (11) Vertigo Surgical Problems: (1) H/O detached retina repair (2) H/O spinal fusion (3) Hx of cataract surgery (4) Hx of repair of left rotator cuff (5) Status post total left knee replacement Social History Problems: (1) PERIPH VASCULAR DIS NOS Family History Diabetes mellitus FH: [place] (myocardial infarction) FH: alcoholism Heart disease Hypertension Social History Smoking Status: Never Smoker Alcohol Use: none Drug Use: none Marital Status: Housing Status: lives with family Occupation Status: retired Current/Historical Medications Scheduled Amoxicillin & Pot Clavulanate (Amoxicillin/Clavulanate P), 1 TAB PO BID Glucosamine Sulfate (Glucosamine Sulfate), 2 TAB PO QAM Losartan Potassium (Cozaar), 25 MG PO DAILY Meclizine HCl (Meclizine HCl), 25 MG PO QID Omeprazole (Prilosec), 20 MG PO BID Probiotic Product (Probiotic), 1 CAP PO QAM Sertraline HCl (Sertraline HCl), 50 MG PO QAM Spironolactone (Aldactone), 50 MG PO DAILY Sulfa/Trimethoprim (Bactrim Ds 800MG/160MG), 1 TAB PO BID Allergies Coded Allergies: No Known Allergies (Verified , `, 08/22/16) Physical Exam Vital Signs Date Time Temp Pulse Resp B/P (MAP) Pulse Ox O2 Delivery O2 Flow Rate FiO2 01/04/17 18:35 69 16 122/75 95 Room Air 01/04/17 17:31 72 18 146/86 94 Room Air 01/04/17 15:34 86 16 119/86 91 Room Air 01/04/17 15:04 94 16 136/83 91 Room Air 01/04/17 15:04 94 01/04/17 14:44 95 Room Air 01/04/17 14:41 90 115/75 105 134/71 105 136/83 01/04/17 14:00 36.5 105 18 110/69 95 Room Air Physical Exam GENERAL: Awake, alert, well appearing, no distress HENT: Normocephalic, atraumatic. TM's normal. Oropharynx unremarkable. EYES: Lateral nystagmus. PERRL. EOMI. Normal conjunctiva. Sclera non-icteric. NECK: Supple. No nuchal rigidity. FROM. No JVD or bruit. RESPIRATORY: CTA CARDIAC: RRR. No murmur. ABDOMEN: Soft, non distended. No tenderness to palpation. No rebound or guarding. No masses. RECTAL: Deferred. MUSCULOSKELETAL: Unremarkable. No edema. No discoloration. Gross motor strength symmetric. NEURO: Cranial nerves 2-12 grossly intact. Normal sensorium. No sensory or motor deficits noted. Speech normal. No pronator drift. Negative HINTS. SKIN: No rash or jaundice noted. LYMPH: No adenopathy. Medical Decision & Procedures ER Provider Diagnostic Interpretation: Radiology results as stated below per my review and radiologist interpretation: ANGIOGRAPHY HEAD COMBO HISTORY: Vertigo mental status change TECHNIQUE: Multiaxial CT images of the head were performed both before and after the intravenous administration of contrast to evaluate the major cerebral vessels. Maximum intensity projection images were also obtained. A dose lowering technique was utilized adhering to the principles of ALARA. COMPARISON: None. FINDINGS: There is no mass, hematoma, midline shift, or acute infarct. Chronic small vessel change throughout both cerebral hemispheres unchanged in the prior exam. Visualized intracranial internal carotid arteries, distal vertebral arteries, and basilar artery are widely patent. There is no significant stenosis, occlusion, or aneurysm seen within the bilateral ACAs, MCAs, or cigarette package examiner. Moderate atherosclerotic change of the carotid bifurcations IMPRESSION: No significant stenosis, occlusion, or aneurysm within the k[place] of [place]. Moderate atherosclerotic change of the carotid bifurcations. Considerable chronic small vessel change throughout both cerebral hemispheres. No acute intracranial abnormality. The above report was generated using voice recognition software. It may contain grammatical, syntax or spelling errors. Electronically signed by: Ramírez Hyde M.D. 01/04/2017 4:34 PM NECK ANGIO WITH CONTRAST HISTORY: Mental status change vertigo TECHNIQUE: Multiaxial CT images of the neck were performed following the intravenous administration of contrast to evaluate the major cervical vessels. Maximum intensity projection images were also obtained. All measurements were calculated based on NASCET criteria. A dose lowering technique was utilized adhering to the principles of ALARA. COMPARISON STUDY: None. FINDINGS: The aortic arch and proximal great vessels are widely patent. There is no significant stenosis, occlusion, or dissection identified within the bilateral common carotid, internal carotid, or vertebral arteries. Moderate plaque formation of the right and to lesser extent left carotid bifurcation IMPRESSION: No significant stenosis, occlusion, or dissection identified within the carotid or vertebral arteries. Moderate plaque formation The above report was generated using voice recognition software. It may contain grammatical, syntax or spelling errors. Electronically signed by: Ramírez Hyde M.D. 01/04/2017 4:30 PM Laboratory Results 01/04/17 14:35 Red Blood Count 4.65, Mean Corpuscular Volume 91.8, Mean Corpuscular Hemoglobin 32.7, Mean Corpuscular Hemoglobin Concent 35.6, Mean Platelet Volume 8.7, Neutrophils (%) (Auto) 67.7, Lymphocytes (%) (Auto) 17.6, Monocytes (%) (Auto) 10.1, Eosinophils (%) (Auto) 3.9, Basophils (%) (Auto) 0.5, Neutrophils # (Auto ) 3.95, Lymphocytes # (Auto) 1.03, Monocytes # (Auto) 0.59, Eosinophils # (Auto ) 0.23, Basophils # (Auto) 0.03 01/04/17 14:35 Test 01/04/17 14:35 01/04/17 16:25 01/04/17 19:03 White Blood Count 5.84 K/uL (4.8-10.8) Red Blood Count 4.65 M/uL (4.7-6.1) Hemoglobin 15.2 g/dL (14.0-18.0) Hematocrit 42.7 % (42-52) Mean Corpuscular Volume 91.8 fL (80-100) Mean Corpuscular Hemoglobin 32.7 pg (25-34) Mean Corpuscular Hemoglobin Concent 35.6 g/dl (32-36) Platelet Count 221 K/uL (130-400) Mean Platelet Volume 8.7 fL (7.4-10.4) Neutrophils (%) (Auto) 67.7 % Lymphocytes (%) (Auto) 17.6 % Monocytes (%) (Auto) 10.1 % Eosinophils (%) (Auto) 3.9 % Basophils (%) (Auto) 0.5 % Neutrophils # (Auto) 3.95 K/uL (1.4-6.5) Lymphocytes # (Auto) 1.03 K/uL (1.2-3.4) Monocytes # (Auto) 0.59 K/uL (0.11-0.59) Eosinophils # (Auto) 0.23 K/uL (0-0.5) Basophils # (Auto) 0.03 K/uL (0-0.2) RDW Standard Deviation 45.2 fL (36.4-46.3) RDW Coefficient of Variation 13.4 % (11.5-14.5) Immature Granulocyte % (Auto) 0.2 % Immature Granulocyte # (Auto) 0.01 K/uL (0.00-0.02) Prothrombin Time 10.8 SECONDS (9.0-12.0) Prothromb Time International Ratio 1.0 (0.9-1.1) Activated Partial Thromboplast Time 26.7 SECONDS (21.0-31.0) Partial Thromboplastin Ratio 1.0 Anion Gap 10.0 mmol/L (3-11) Est Creatinine Clear Calc Drug Dose 66.2 ml/min Estimated GFR () 68.6 Estimated GFR (Non- 59.2 BUN/Creatinine Ratio 12.2 (10-20) Calcium Level 8.6 mg/dl (8.5-10.1) Magnesium Level 1.8 mg/dl (1.8-2.4) Total Bilirubin 0.7 mg/dl (0.2-1) Direct Bilirubin 0.2 mg/dl (0-0.2) Aspartate Amino Transf (AST/SGOT) 19 U/L (15-37) Alanine Aminotransferase (ALT/SGPT) 30 U/L (12-78) Alkaline Phosphatase 91 U/L (45-117) Troponin I < 0.015 ng/ml (0-0.045) Total Protein 7.1 gm/dl (6.4-8.2) Albumin 3.5 gm/dl (3.4-5.0) Lipase 183 U/L (73-393) Thyroid Stimulating Hormone (TSH) 1.520 uIu/ml (0.300-4.500) Urine Color YELLOW Urine Appearance CLEAR (CLEAR) Urine pH 5.5 (4.5-7.5) Urine Specific [place] 1.036 (1.000-1.030) Urine Protein NEG (NEG) Urine Glucose (UA) NEG (NEG) Urine Ketones NEG (NEG) Urine Occult Blood NEG (NEG) Urine Nitrite NEG (NEG) Urine Bilirubin NEG (NEG) Urine Urobilinogen NEG (NEG) Urine Leukocyte Esterase SMALL (NEG) Urine WBC (Auto) 5-10 /hpf (0-5) Urine RBC (Auto) 0-4 /hpf (0-4) Urine Hyaline Casts (Auto) 1-5 /lpf (0-5) Urine Epithelial Cells (Auto) 20-30 /lpf (0-5) Urine Bacteria (Auto) NEG (NEG) Laboratory results reviewed by me Medications Administered Medications (Trade) Dose Ordered Sig/Bro Route Start Time Stop Time Status Last Admin Dose Admin Sodium Chloride 1,000 ml @ 125 mls/hr Q8H STAT IV 01/04/17 14:19 01/04/17 20:26 DC 01/04/17 14:19 125 MLS/HR Diazepam (Valium Inj) 5 mg NOW STAT IV 01/04/17 14:28 01/04/17 14:30 DC 01/04/17 14:50 5 MG Ondansetron HCl (Zofran Inj) 4 mg NOW STAT IV 01/04/17 14:28 01/04/17 14:30 DC 01/04/17 14:50 4 MG Diazepam (Valium Inj) 5 mg NOW STAT IV 01/04/17 16:30 01/04/17 16:32 DC 01/04/17 16:49 5 MG Acetaminophen (Tylenol Tab) 1,000 mg NOW STAT PO 01/04/17 16:30 01/04/17 16:32 DC 01/04/17 16:49 1,000 MG ECG Indication: weakness Rate (beats per minute): 91 Rhythm: normal sinus Findings: no acute ischemic change, no ectopy ED Course 1419: NSS 1000 ml @ 125 mls/hr IV. 1419: NSS 1000 ml @ 125 mls/hr IV. 1422: The patient was evaluated in room B11B. A complete history and physical exam was performed. 1428: Zofran 4 mg IV, Valium 5 mg IV. 1625: I reevaluated the patient. He felt better after receiving his initial nausea medications but is starting to experience more dizziness. I will administer more anti-emetics. He states his neck is bothering him after going to CT scan. I will give him some Tylenol. 1630: Acetaminophen 1000 mg PO, Valium 5 mg IV. 1735: I reevaluated the patient. He is feeling better. He can still reproduce his symptoms somewhat with movement. I will have nursing try an ambulation trial. 180: Nursing informed me the patient failed his outpatient ambulatory trial. I will contact the hospital medicine team. 181: I discussed the patients case with Dr. Mark, [facility] Hospitalist. The patient will be further evaluated. Medical Decision Triage Nursing notes reviewed. The patient's presentation and history were concerning for dizziness. Etiologies such as benign positional vertigo, tumor, infection, hypoglycemia, electrolyte abnormalities, cardiac sources, intracerebral event, toxicologic, neurologic, as well as others were entertained. The patient was evaluated. He had nystagmus on examination. No focal neurologic findings. The patient was hydrated and given Zofran along with IV Valium. Unfortunately he just had his spinal stimulator placed and even though it is MRI compatible he is still within the window of a contraindication to MR imaging. Because of this the patient underwent CT angiography to further evaluate his dizziness. Blood work was done. ECG was unremarkable. The patient can't second dose of IV Valium. Ambulatory trial was performed and the patient was dizzy and did not perform well. He has been falling multiple times. Because of this I felt further evaluation and management will be necessary. I discussed staying in the hospital and the patient was in agreement. The case was discussed with the [facility] hospitalist. The patient was evaluated in the Emergency Room for further management. Medication Reconcilliation Current Medication List: was personally reviewed by me Blood Pressure Screening Patient's blood pressure: Normal blood pressure Consults Time Called: 1809 Consulting Physician: Dr. Mark [facility] Hospitalist Returned Call: 1811 I discussed the patients case with Dr. Mark [facility] Hospitalist. The patient will be further evaluated. Impression Primary Impression: Dizziness Additional Impression: Ambulatory dysfunction Scribe Attestation The scribe's documentation has been prepared under my direction and personally reviewed by me in its entirety. I confirm that the note above accurately reflects all work, treatment, procedures, and medical decision making performed by me. Departure Information Dispostion Being Evaluated By Hospitalist Referrals Marvin Demarco D.O. (PCP) Patient Instructions My [facility] Problem Qualifiers
[2017-01-04] MEDS: PANTOprazole SOD 40 MG TAB PO SCH (21:18)
[2017-01-04] MEDS: MECLIZINE HCL 25 MG TAB PO SCH (21:18)
[2017-01-04] MEDS: AMOXICILLIN/CLAVULANATE TAB 875 MG TAB PO SCH (21:19)
[2017-01-04] MEDS: SULFAMETHOXAZOLE/TRIMETHOPRIM DS 800/160MG TAB PO SCH (21:19)
[2017-01-04 23:25] VITALS: BP 120/75; PULSE 68; TEMP 36.3; O2SAT 94
[2017-01-05] VITALS: O2SAT 95
[2017-01-05 04:00] VITALS: O2SAT 95
[2017-01-05] MEDS ORDERED: GLUCOSAMINE SULFATE 500 MG CAP PO SCH (08:00)
[2017-01-05] MEDS ORDERED: LACTOBACILLUS ACIDOPHILUS (FLORANEX) TAB PO SCH (08:00)
[2017-01-05] MEDS ORDERED: SERTRALINE HCL 50 MG TAB PO SCH (08:00)
[2017-01-05] MEDS: MECLIZINE HCL 25 MG TAB PO SCH ×2 (08:13→12:01)
[2017-01-05] MEDS: PANTOprazole SOD 40 MG TAB PO SCH (08:13)
[2017-01-05] MEDS: AMOXICILLIN/CLAVULANATE TAB 875 MG TAB PO SCH (08:13)
[2017-01-05] MEDS: SULFAMETHOXAZOLE/TRIMETHOPRIM DS 800/160MG TAB PO SCH (08:13)
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
[2017-01-05 12:31] VITALS: BP 120/75; PULSE 68; TEMP 36.3; O2SAT 95
--- NOTE | 2017-01-05 12:57 | Discharge Instructions ---
Discharge Instructions Date of Service Jan 05, 2017. Admission Reason for Admission: Vertigo Discharge Discharge Diagnosis / Problem: possible BPPV Discharge Goals Goal(s): Decrease discomfort, Improve function, Increase independence, Improve disease control, Improve nutritional status, Learn about illness, Diagnostic testing, Therapeutic intervention, Prevent Disease Progression, Specific goals Activity Recommendations Activity Limitations: resume your previous activity (fall precaution) . Instructions / Follow-Up Instructions / Follow-Up you have Vertigo possible BPPV, resolved You need to follow-up with ENT as instructed, keep appointment to have brain MRI done, - you need to follow up with your primary care physician in 1 week, - take medication as instructed, never overdose or any misuse, or take with alcohol, because misuse of medicine may cause organ damage or , call your primary care physician if have questions of medicaitons. - call your primary care physician OR go to local emergency room if has any fever/chill, chest pain, shortness of breathing, nausea/vomiting/abdominal pain , facial droop/slurry speech/local weakness, or if has any questions. - fall precaution - diet as instructed - you need to follow up with your subspecialist - you should understand that it is important to follow up the above instruction , and "not following the above instruction" may cause delayed or missed care of your medical conditions which may cause permanent organ damage and even . Current Hospital Diet Patient's current hospital diet: Regular Diet Discharge Diet Recommended Diet: AHA Diet (Heart Healthy), Low Sodium Diet (2gm Na) Pending Studies Studies pending at discharge: no Laboratory Results Meds Administered (Past 24Hrs) Medications (Trade) Dose Ordered Sig/Bro Route Start Time Stop Time Status Last Admin Dose Admin Sodium Chloride 1,000 ml @ 125 mls/hr Q8H STAT IV 01/04/17 14:19 01/04/17 20:26 DC 01/04/17 14:19 125 MLS/HR Diazepam (Valium Inj) 5 mg NOW STAT IV 01/04/17 14:28 01/04/17 14:30 DC 01/04/17 14:50 5 MG Ondansetron HCl (Zofran Inj) 4 mg NOW STAT IV 01/04/17 14:28 01/04/17 14:30 DC 01/04/17 14:50 4 MG Diazepam (Valium Inj) 5 mg NOW STAT IV 01/04/17 16:30 01/04/17 16:32 DC 01/04/17 16:49 5 MG Acetaminophen (Tylenol Tab) 1,000 mg NOW STAT PO 01/04/17 16:30 01/04/17 16:32 DC 01/04/17 16:49 1,000 MG Acetaminophen (Tylenol Tab) 650 mg Q4H PRN PO 01/04/17 19:15 02/03/17 19:14 01/05/17 10:02 650 MG Meclizine HCl (Antivert Tab) 25 mg QID PO 01/04/17 20:21 02/03/17 20:59 01/05/17 12:01 25 MG Sertraline HCl (Zoloft Tab) 50 mg QAM PO 01/05/17 08:00 02/04/17 08:59 01/05/17 08:13 50 MG Trimethoprim/ Sulfamethoxazole (Septra Ds 800/ 160MG Tab) 1 tab BID PO 01/04/17 20:21 02/15/17 20:59 01/05/17 08:13 1 TAB Amoxicillin/ Clavulanate Potassium (Augmentin Tab) 875 mg BIDM PO 01/04/17 21:00 02/15/17 20:59 01/05/17 08:13 875 MG Glucosamine Sulfate (Glucosamine Cap) 2,000 mg QAM PO 01/05/17 08:00 02/04/17 08:59 01/05/17 08:14 2,000 MG Pantoprazole Sodium (Protonix Tab) 40 mg BID PO 01/04/17 20:21 02/03/17 20:59 01/05/17 08:13 40 MG Lactobacillus Acidophilus (Floranex Tab) 4 tab QAM PO 01/05/17 08:00 02/04/17 08:59 01/05/17 08:13 4 TAB Medical Emergencies . Who to Call and When: Medical Emergencies: If at any time you feel your situation is an emergency, please call 911 immediately. . Non-Emergent Contact Non-Emergency issues call your: Primary Care Provider . . "Provider Documentation" section prepared by Nirav Sparks. . VTE Core Measure Inpt VTE Proph given/why not?: SCD's
--- NOTE | 2017-01-05 13:06 | Discharge Summary ---
Discharge Summary Date of Service Jan 05, 2017. Discharge Summary Admission Date: Jan 04, 2017 at 19:06 Discharge Date: Jan 05, 2017 Principal Diagnosis: Vertigo possible BPPV, resolved Problems/Secondary Diagnoses: Vertigo possible BPPV, resolved spine stimulator recently Immunizations: Have You Had Influenza Vaccine: Yes Influenza Vaccine Date: Mar 13, 2014 History of Tetanus Vaccine?: Yes Tetanus Immunization Date: Jan 20, 2011 History of Pneumococcal: Yes Pneumococcal Date: Feb 06, 2009 History of Hepatitis B Vaccine: No Procedures: No Consultations: ENT Medication Reconciliation Continued Medications: Amoxicillin & Pot Clavulanate (Amoxicillin/Clavulanate P) 1 Tab Tab 1 TAB PO BID Glucosamine Sulfate (Glucosamine Sulfate) 1,000 Mg Tab 2 TAB PO QAM Losartan Potassium (Cozaar) 25 Mg Tab 25 MG PO DAILY, TAB Meclizine HCl (Meclizine HCl) 25 Mg Tab 25 MG PO QID, #60 Omeprazole (Prilosec) 20 Mg Capcr 20 MG PO BID Probiotic Product (Probiotic) 1 Cap Cap 1 CAP PO QAM Sertraline HCl (Sertraline HCl) 50 Mg Tab 50 MG PO QAM, #30 Spironolactone (Aldactone) 50 Mg Tab 50 MG PO DAILY, TAB Sulfa/Trimethoprim (Bactrim Ds 800MG/160MG) Tab 1 TAB PO BID, #6 TAB Discharge Exam No more dizziness, no other complaint Review of Systems: Constitutional: No fever, No chills, No sweats, No weight loss, No weakness , No fatigue, No problem reported ENT: No hearing loss, No unusual epistaxis, No nasal symptoms, No sore throat, No tinnitus, No dental problems, No trouble swallowing, No problem reported Cardiovascular: No chest pain, No orthopnea, No PND, No edema, No claudication, No palpitations, No problem reported Abdomen: No pain, No nausea, No vomiting, No diarrhea, No constipation, No GI bleeding, No problem reported Musculoskeletal: No joint pain, No muscle pain, No swelling, No calf pain, No problem reported Genitourinary - Male: No hematuria, No dysuria, No urinary frequency, No urinary urgency, No urinary hesitancy, No urinary retention, No urinary incontinence, No penile discharge, No lesions, No impotence, No problem reported Neurologic: No memory loss, No paralysis, No weakness, No numbness/tingling , No vertigo, No balance problems, No problem reported Psychiatric: No depression symptoms, No anhedonism, No anxiety, No insomnia , No substance abuse, No problem reported Endocrine: No fatigue, No excessive thirst, No excessive urination, No problem reported Integumentary: No rash, No itch, No new/changing skin lesions, No color change, No bleeding, No problem reported Physical Exam: General Appearance: WD/WN, no apparent distress Eyes: normal inspection, PERRL ENT: normal ENT inspection Neck: supple Respiratory/Chest: chest non-tender, lungs clear, normal breath sounds Cardiovascular: regular rate, rhythm, no edema, no gallop Abdomen / GI: normal bowel sounds, non tender, soft, no organomegaly Extremities: normal inspection, no calf tenderness, normal capillary refill Neurologic/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 Moderate plaque formation, No significant stenosis, occlusion, or aneurysm within the [place]. Moderate atherosclerotic change of the carotid bifurcations. Considerable chronic small vessel change throughout both cerebral hemispheres. No acute intracranial abnormality. Unable to obtain MRI due to recent spinal stimulator placement Dr. Schilling discussed acupuncture with pt if ongoing issues on d/c'd HTN: Parkinson's: GERD: Spinal stenosis: Hx of DVT: occurred s/p knee replacement years ago and no recurrence No longer on anticoag The above condition is stable Patient is discharged as stable condition, discussed with patient and about medical conditions and care plan, answered all the questions Instructions / Follow-Up you have Vertigo possible BPPV, resolved You need to follow-up with ENT as instructed, keep appointment to have brain MRI done, - you need to follow up with your primary care physician in 1 week, - take medication as instructed, never overdose or any misuse, or take with alcohol, because misuse of medicine may cause organ damage or , call your primary care physician if have questions of medicaitons. - call your primary care physician OR go to local emergency room if has any fever/chill, chest pain, shortness of breathing, nausea/vomiting/abdominal pain , facial droop/slurry speech/local weakness, or if has any questions. - fall precaution - diet as instructed - you need to follow up with your subspecialist - you should understand that it is important to follow up the above instruction , and "not following the above instruction" may cause delayed or missed care of your medical conditions which may cause permanent organ damage and even . Total Time Spent: Less than 30 minutes This includes examination of the patient, discharge planning, medication reconciliation, and communication with other providers. Discharge Instructions Please refer to the electronic Patient Visit Report (Discharge Instructions) for additional information.
== END 2017-01-05 14:30 | disposition home or self-care (01) ==
LOC: C.EDB 13:58 → C.4E 19:06 → ENRESERV 19:21
PROVIDERS: ADMIT Family Medicine; ATTEND Hospitalist
DX: R42 Dizziness and giddiness (principal); I10 Essential (primary) hypertension; I25.10 Atherosclerotic heart disease of native coronary artery without angina pectoris; Z86.718 Personal history of other venous thrombosis and embolism; Z85.46 Personal history of malignant neoplasm of prostate; E66.9 Obesity, unspecified; G20 Parkinson's disease; Z98.1 Arthrodesis status; Z96.651 Presence of right artificial knee joint; Z98.49 Cataract extraction status, unspecified eye; Z83.3 Family history of diabetes mellitus; Z82.49 Family history of ischemic heart disease and other diseases of the circulatory system; Z81.1 Family history of alcohol abuse and dependence; R26.2 Difficulty in walking, not elsewhere classified; K21.9 Gastro-esophageal reflux disease without esophagitis

== ENCOUNTER → 2017-03-04 | Outpatient (CLI) | payer OTHER ==
[~2017-03-04] MED LIST changes: -MECL1TAB42 PO; -PANT40TA PO
[2017-03-04 10:14] LABS: BASO % 0.6 %; BASO ABS # 0.04 K/uL (0-0.2); COMPLETE YES; EOS % 4.8 %; HEMATOCRIT 44.4 % (42-52); IG% 0.4 %; LYMPH % 22.1 %; LYMPH ABS # 1.49 K/uL (1.2-3.4); MEAN CELL VOLUME 91.4 fL (80-100); MEAN CORPUSCULAR HEMOGLOBIN 30.2 pg (25-34); MEAN CORPUSCULAR HGB CONC 33.1 g/dl (32-36); MEAN PLATELET VOLUME 9.4 fL (7.4-10.4); MONO % 10.5 %; NEUT % 61.6 %; PLATELET COUNT 261 K/uL (130-400); RED BLOOD COUNT 4.86 M/uL (4.7-6.1); WHITE BLOOD COUNT 6.73 K/uL (4.8-10.8)
[2017-03-04 10:50] LABS: ALT/SGPT 22 U/L (12-78); AST/SGOT 16 U/L (15-37); BLOOD UREA NITROGEN 9 mg/dl (7-18); BUN/CREATININE RATIO 9.4 (10-20); CALCIUM 9.1 mg/dl (8.5-10.1); CARBON DIOXIDE 24 mmol/L (21-32); CHLORIDE 107 mmol/L (98-107); GLUCOSE 111 mg/dl (70-99); SODIUM 139 mmol/L (136-145)
[2017-03-04 10:51] LABS: ALB/GLOB RATIO 1.1 (0.9-2); ALKALINE PHOSPHATASE 100 U/L (45-117); C-REACTIVE PROTEIN < 0.29 mg/dl (0-0.29)
== END | disposition home or self-care (01) ==
LOC: C.LAB1850 09:07
PROVIDERS: ATTEND Internal Medicine Infectious Disease
DX: G06.1 Intraspinal abscess and granuloma (principal)

== ENCOUNTER → 2017-07-03 | Outpatient (CLI) | payer OTHER ==
[2017-07-03 10:57] LABS: BASO % 0.5 %; BASO ABS # 0.03 K/uL (0-0.2); EOS % 6.8 %; EOS ABS # 0.43 K/uL (0-0.5); HEMATOCRIT 43.8 % (42-52); HEMOGLOBIN 14.6 g/dL (14.0-18.0); IG# 0.02 K/uL (0.00-0.02); LYMPH % 22.1 %; LYMPH ABS # 1.41 K/uL (1.2-3.4); MEAN CELL VOLUME 89.6 fL (80-100); MEAN CORPUSCULAR HEMOGLOBIN 29.9 pg (25-34); MEAN CORPUSCULAR HGB CONC 33.3 g/dl (32-36); MEAN PLATELET VOLUME 9.5 fL (7.4-10.4); MONO % 9.6 %; MONO ABS # 0.61 K/uL (0.11-0.59); NEUT % 60.7 %; NEUT ABS # 3.87 K/uL (1.4-6.5); PLATELET COUNT 247 K/uL (130-400); RED CELL DISTRIBUTION WIDTH CV 14.4 % (11.5-14.5); RED CELL DISTRIBUTION WIDTH SD 46.8 fL (36.4-46.3); WHITE BLOOD COUNT 6.37 K/uL (4.8-10.8)
[2017-07-03 11:17] LABS: ALBUMIN 3.8 gm/dl (3.4-5.0); ALT/SGPT 26 U/L (12-78); AST/SGOT 21 U/L (15-37); BLOOD UREA NITROGEN 13 mg/dl (7-18); CALCIUM 8.3 mg/dl (8.5-10.1); CARBON DIOXIDE 29 mmol/L (21-32); CREATININE 1.07 mg/dl (0.60-1.40); GLUCOSE 109 mg/dl (70-99); POTASSIUM 3.7 mmol/L (3.5-5.1); SODIUM 137 mmol/L (136-145)
[2017-07-03 11:18] LABS: ALKALINE PHOSPHATASE 93 U/L (45-117)
== END | disposition home or self-care (01) ==
LOC: C.LAB1850 09:07
PROVIDERS: ATTEND Internal Medicine Infectious Disease
DX: B95.7 Other staphylococcus as the cause of diseases classified elsewhere (principal)

== ENCOUNTER 2017-08-18 10:50 | Observation (INO) | payer OTHER ==
[~2017-08-18] VITALS: Ht 177.8 cm; Wt 128.6 kg
[2017-08-18] MEDS ORDERED: NITROGLYCERIN 2% OINTMENT 30GM TUBE EXT STA ×2 (11:09→13:40)
--- NOTE | 2017-08-18 11:21 | EMERGENCY ROOM VISIT NOTE ---
History First contact with patient: 10:57 Chief Complaint: CHEST PAIN Stated Complaint: CHEST PAIN Nursing Triage Summary: Pt reports epigastric that started over the weekend. Pt states, "I was having a problem with my blood pressure a month ago or so. I hadn't been on any bp med for a long time. I am on abx for an infection in my back. My bp this was morning was 160/100." SOB with exertion. History of Present Illness The patient is a 76 year old male who presents to the Emergency Room via private vehicle accompanied by with complaints of "chest pain". The patient states that he has been experience and blood pressure problems for the past 3-4 months. He states that over the weekend/late last week he developed substernal chest pain that is worse with exertion and shortness of breath times the past 3-4 days. He notes that this morning blood pressure was 165/105. He repeated this a few times and it was still elevated. He does note that lying flat makes the pain better. It is worse with exertion. He had 2 baby aspirin this morning. He does chronically have a TENS unit in place for his low back pain and also chronic oral antibiotics which he follows with infectious disease locally for. He also notes a history of bleeding ulcers and notes this may feel similar. He has no significant past medical heart history that he is aware and notes that he has had stress tests in the past which were negative. He does not see cardiology. Review of Systems A complete 10-point Review of Systems was discussed with the patient, with pertinent positives and negatives listed in the History of Present Illness. All remaining Review of Systems questions can be considered negative unless otherwise specified. Past Medical/Surgical History Medical Problems: (1) Benign hypertension (2) Calcific coronary arteriosclerosis (3) Cardiomegaly (4) Deconditioned low back (5) History of DVT (deep vein thrombosis) (6) History of malignant neoplasm of prostate (7) History of peptic ulcer disease (8) Hypersomnia with sleep apnea (9) OBESITY, NOS (10) Parkinson's disease (11) Spinal stenosis of lumbar region Surgical Problems: (1) H/O detached retina repair (2) H/O spinal fusion (3) Hx of cataract surgery (4) Hx of repair of left rotator cuff (5) Status post total left knee replacement Social History Problems: (1) PERIPH VASCULAR DIS NOS Family History Diabetes mellitus FH: KS (myocardial infarction) FH: alcoholism Heart disease Hypertension Social History Smoking Status: Never Smoker Alcohol Use: none Drug Use: none Marital Status: Housing Status: lives with family Occupation Status: retired Current/Historical Medications Scheduled Amoxicillin & Pot Clavulanate (Amoxicillin/Clavulanate P), 1 TAB PO BID Glucosamine Sulfate (Glucosamine Sulfate), 2 TAB PO QAM Probiotic Product (Probiotic), 1 CAP PO QAM Sulfa/Trimethoprim (Bactrim Ds 800MG/160MG), 1 TAB PO BID Physical Exam Vital Signs Date Time Temp Pulse Resp B/P (MAP) Pulse Ox O2 Delivery O2 Flow Rate FiO2 08/18/17 16:37 93 18 111/84 94 Room Air 08/18/17 16:19 98 20 99/70 94 Room Air 08/18/17 15:48 86 20 134/80 96 Room Air 08/18/17 15:01 154/94 08/18/17 15:00 78 16 95 08/18/17 14:45 86 12 93 08/18/17 14:31 163/93 08/18/17 14:30 81 19 93 08/18/17 14:15 70 19 96 08/18/17 14:15 86 16 145/91 95 Room Air 08/18/17 14:01 83 18 93 08/18/17 13:39 142/100 08/18/17 13:32 150/67 08/18/17 13:31 84 24 96 08/18/17 13:20 86 22 153/75 97 Room Air 08/18/17 13:19 153/75 08/18/17 13:01 72 24 171/107 08/18/17 13:01 96 Room Air 08/18/17 12:31 160/100 08/18/17 12:30 73 13 96 08/18/17 12:01 141/83 08/18/17 12:00 80 16 95 08/18/17 11:31 148/90 08/18/17 11:30 82 21 96 08/18/17 11:30 81 148/90 99 Room Air 08/18/17 11:07 88 18 155/76 94 Room Air 08/18/17 11:04 94 08/18/17 11:00 96 Room Air 08/18/17 10:53 36.7 104 18 159/99 94 Room Air Physical Exam VITAL SIGNS - Vital signs and nursing notes were reviewed. Stable. GENERAL -76-year-old male appearing his stated age who is in no acute distress. Communicates well with provider and answers questions appropriately. SKIN - Without rashes. No particular meningeal rash. HEAD - NC/AT. EYES - PERRL with EOMI bilaterally. Sclera anicteric. EARS - No deformities of external structures noted on gross examination bilaterally. NOSE - Midline and without cyanosis. No epistaxis or purulent drainage noted. MOUTH/OROPHARYNX - Without perioral cyanosis. Buccal mucosa pink and moist and without leukoplakia. Tongue midline with equal elevation of palate bilaterally. No tonsillar hypertrophy, erythema, or exudates noted. Fair dentition noted. LUNGS - Chest wall symmetric without accessory muscle use, intercostals retractions, or central cyanosis. Normal vesicular breath sounds CTA B/L. No wheezes, rales, or rhonchi appreciated. CARDIAC - RRR with S1/S2. No murmur, rubs, or gallops appreciated. Slight increase of pain with palpation of the anterior chest. ABDOMEN - Abdominal contour normal without pulsations or visible masses. BS normoactive all four quadrants. No tenderness, palpable masses, hepatosplenomegaly, or ascites noted. EXTREMITIES - No clubbing or peripheral cyanosis. No pretibial edema present. + 5/5 strength noted in UE/LE bilaterally. NEUROLOGIC - Cranial nerves II through XII grossly intact. Sensory intact to light touch throughout. PSYCH - A&O, and cooperates fully with examiner. Pt is very pleasant and interacts well with examiner. RECTAL: Unremarkable external examination. No bright red blood. Hemoccult positive stool. Medical Decision & Procedures ER Provider Diagnostic Interpretation: CHEST ONE VIEW PORTABLE CLINICAL HISTORY: chest pain dyspnea COMPARISON STUDY: 12/26/2016 FINDINGS: Mild stable cardia megaly. Electrodes overlying the mid thoracic spine. Lungs are clear. Mild chronic elevation right hemidiaphragm. IMPRESSION: No acute process. Mild stable cardiomegaly. The above report was generated using voice recognition software. It may contain grammatical, syntax or spelling errors. Electronically signed by: Ramírez Hyde M.D. 08/18/2017 11:56 AM Dictated Date/Time: 08/18/2017 11:56 AM Laboratory Results 08/18/17 11:20 Red Blood Count 4.79, Mean Corpuscular Volume 88.9, Mean Corpuscular Hemoglobin 30.5, Mean Corpuscular Hemoglobin Concent 34.3, Mean Platelet Volume 8.9, Neutrophils (%) (Auto) 67.9, Lymphocytes (%) (Auto) 15.1, Monocytes (%) (Auto) 9.2, Eosinophils (%) (Auto) 7.0, Basophils (%) (Auto) 0.4, Neutrophils # (Auto) 4.59, Lymphocytes # (Auto) 1.02, Monocytes # (Auto) 0.62, Eosinophils # (Auto) 0.47, Basophils # (Auto) 0.03 08/18/17 11:20 Test 08/18/17 11:20 08/18/17 13:15 White Blood Count 6.76 K/uL (4.8-10.8) Red Blood Count 4.79 M/uL (4.7-6.1) Hemoglobin 14.6 g/dL (14.0-18.0) Hematocrit 42.6 % (42-52) Mean Corpuscular Volume 88.9 fL (80-100) Mean Corpuscular Hemoglobin 30.5 pg (25-34) Mean Corpuscular Hemoglobin Concent 34.3 g/dl (32-36) Platelet Count 223 K/uL (130-400) Mean Platelet Volume 8.9 fL (7.4-10.4) Neutrophils (%) (Auto) 67.9 % Lymphocytes (%) (Auto) 15.1 % Monocytes (%) (Auto) 9.2 % Eosinophils (%) (Auto) 7.0 % Basophils (%) (Auto) 0.4 % Neutrophils # (Auto) 4.59 K/uL (1.4-6.5) Lymphocytes # (Auto) 1.02 K/uL (1.2-3.4) Monocytes # (Auto) 0.62 K/uL (0.11-0.59) Eosinophils # (Auto) 0.47 K/uL (0-0.5) Basophils # (Auto) 0.03 K/uL (0-0.2) RDW Standard Deviation 46.4 fL (36.4-46.3) RDW Coefficient of Variation 14.2 % (11.5-14.5) Immature Granulocyte % (Auto) 0.4 % Immature Granulocyte # (Auto) 0.03 K/uL (0.00-0.02) Prothrombin Time 10.6 SECONDS (9.0-12.0) Prothromb Time International Ratio 1.0 (0.9-1.1) Activated Partial Thromboplast Time 25.7 SECONDS (21.0-31.0) Partial Thromboplastin Ratio 1.0 Anion Gap 8.0 mmol/L (3-11) Est Creatinine Clear Calc Drug Dose 85.0 ml/min Estimated GFR () 86.6 Estimated GFR (Non- 74.7 BUN/Creatinine Ratio 8.7 (10-20) Calcium Level 8.5 mg/dl (8.5-10.1) Magnesium Level 2.0 mg/dl (1.8-2.4) Total Bilirubin 0.7 mg/dl (0.2-1) Aspartate Amino Transf (AST/SGOT) 15 U/L (15-37) Alanine Aminotransferase (ALT/SGPT) 21 U/L (12-78) Alkaline Phosphatase 79 U/L (45-117) Total Creatine Kinase 80 U/L (39-308) Creatine Kinase MB 1.7 ng/ml (0.5-3.6) Creatine Kinase MB Ratio 2.1 (0-3.0) Troponin I < 0.015 ng/ml (0-0.045) Pro-B-Type Natriuretic Peptide 197 pg/ml (0-900) Total Protein 6.8 gm/dl (6.4-8.2) Albumin 3.6 gm/dl (3.4-5.0) Globulin 3.2 gm/dl (2.5-4.0) Albumin/Globulin Ratio 1.1 (0.9-2) Thyroid Stimulating Hormone (TSH) 1.690 uIu/ml (0.300-4.500) Urine Color YELLOW Urine Appearance CLEAR (CLEAR) Urine pH 6.5 (4.5-7.5) Urine Specific [place] 1.019 (1.000-1.030) Urine Protein NEG (NEG) Urine Glucose (UA) NEG (NEG) Urine Ketones NEG (NEG) Urine Occult Blood NEG (NEG) Urine Nitrite NEG (NEG) Urine Bilirubin NEG (NEG) Urine Urobilinogen NEG (NEG) Urine Leukocyte Esterase SMALL (NEG) Urine WBC (Auto) 5-10 /hpf (0-5) Urine RBC (Auto) 0-4 /hpf (0-4) Urine Hyaline Casts (Auto) 1-5 /lpf (0-5) Urine Epithelial Cells (Auto) 10-20 /lpf (0-5) Urine Bacteria (Auto) NEG (NEG) Medications Administered Medications (Trade) Dose Ordered Sig/Bro Route Start Time Stop Time Status Last Admin Dose Admin Nitroglycerin (Nitroglycerin 2% Oint) 0.5 inch NOW STAT EXT 08/18/17 11:09 08/18/17 11:11 DC 08/18/17 11:37 0.5 INCH Nitroglycerin (Nitroglycerin 2% Oint) 0.5 inch NOW STAT EXT 08/18/17 13:40 08/18/17 13:41 DC 08/18/17 13:48 0.5 INCH Nitroglycerin (Nitrostat Tab) 0.4 mg UD PRN SL 08/18/17 15:15 09/17/17 15:14 08/18/17 16:19 0.4 MG Medical Decision Patient was seen and evaluated as above. He presents to us today with substernal chest pain worse with exertion times the past few days. He does have history of gastric ulcer. Review was performed of nursing notes and vital signs. After obtaining a thorough history and physical examination the above work up was performed. CBC reveals no concerning leukocytosis or anemia. Metabolic panel no emergent process. Troponin negative. Bedside EKG per my interpretation does reveal sinus rhythm with first-degree AV block, rate of 92 bpm. There is no ectopy or ischemic change. Chest x-ray reveals stable mild cardiomegaly, otherwise no acute process. Patient was given 2 baby aspirin prior to arrival, and I did provide him with nitroglycerin here. After the ointment was applied he was reevaluated and the chest pain was completely resolved. He does note a headache. This is typical. Unfortunately, given his age, risk factors, and exertional substernal chest pain which was alleviated with nitroglycerin I do believe that further evaluation in the inpatient setting is warranted. It is also important note that the patient has a history of ulcers, has been taking NSAIDs recently. He did have heme positive stool here. His hemoglobin is stable compared to previous. Case was discussed with the attending physician. Case was discussed with the admitting team, and will be admitted for further evaluation and management. After I did discuss the case with the hospitalist, the patient did have another episode of chest pain. I did give him 0.5 of Nitropaste. EKG was performed at that time. No evidence of STEMI. He will be admitted for further evaluation and management. Case was discussed with the attending physician. Imaging as interpreted by myself and the radiologist revealed mild stable cardiomegaly, no acute process, with radiologist interpretation as above. I agree with the radiologist's findings as based upon my independent interpretation. I attest that I have personally reviewed the patient medication list. I attest that I have reviewed the patient's blood pressure and it was found to be elevated. In the evaluation and treatment of this patient the following differential diagnoses were entertained: KS, PE, unstable angina, stable angina, pericarditis , costochondritis, pneumothorax, among others. Impression Primary Impression: Chest pain Additional Impression: Heme + stool Departure Information Dispostion Admitted as an inpatient Condition FAIR Referrals No Doctor, Assigned (PCP) Patient Instructions My [facility] Problem Qualifiers
[2017-08-18 11:31] LABS: BASO % 0.4 %; BASO ABS # 0.03 K/uL (0-0.2); EOS ABS # 0.47 K/uL (0-0.5); HEMATOCRIT 42.6 % (42-52); HEMOGLOBIN 14.6 g/dL (14.0-18.0); IG# 0.03 K/uL (0.00-0.02); LYMPH % 15.1 %; LYMPH ABS # 1.02 K/uL (1.2-3.4); MEAN CELL VOLUME 88.9 fL (80-100); MEAN CORPUSCULAR HEMOGLOBIN 30.5 pg (25-34); MEAN CORPUSCULAR HGB CONC 34.3 g/dl (32-36); MEAN PLATELET VOLUME 8.9 fL (7.4-10.4); MONO % 9.2 %; MONO ABS # 0.62 K/uL (0.11-0.59); NEUT % 67.9 %; NEUT ABS # 4.59 K/uL (1.4-6.5); PLATELET COUNT 223 K/uL (130-400); RED CELL DISTRIBUTION WIDTH CV 14.2 % (11.5-14.5); RED CELL DISTRIBUTION WIDTH SD 46.4 fL (36.4-46.3); WHITE BLOOD COUNT 6.76 K/uL (4.8-10.8)
[2017-08-18 11:41] LABS: PTT PATIENT 25.7 SECONDS (21.0-31.0)
[2017-08-18 11:45] LABS: ALBUMIN 3.6 gm/dl (3.4-5.0); BLOOD UREA NITROGEN 9 mg/dl (7-18); CALCIUM 8.5 mg/dl (8.5-10.1); CARBON DIOXIDE 25 mmol/L (21-32); CREATININE 0.99 mg/dl (0.60-1.40); GLUCOSE 133 mg/dl (70-99); POTASSIUM 3.7 mmol/L (3.5-5.1); SODIUM 136 mmol/L (136-145)
[2017-08-18 11:56] LABS: ALKALINE PHOSPHATASE 79 U/L (45-117); ALT/SGPT 21 U/L (12-78); AST/SGOT 15 U/L (15-37); CKMB 1.7 ng/ml (0.5-3.6); TOTAL PROTEIN 6.8 gm/dl (6.4-8.2)
--- NOTE | 2017-08-18 11:58 | DIAGNOSTIC IMAGING REPORT ---
CHEST ONE VIEW PORTABLE CLINICAL HISTORY: chest pain dyspnea COMPARISON STUDY: 12/26/2016 FINDINGS: Mild stable cardia megaly. Electrodes overlying the mid thoracic spine. Lungs are clear. Mild chronic elevation right hemidiaphragm. IMPRESSION: No acute process. Mild stable cardiomegaly. The above report was generated using voice recognition software. It may contain grammatical, syntax or spelling errors. Electronically signed by: Ramírez Hyde M.D. 08/18/2017 11:56 AM Dictated Date/Time: 08/18/2017 11:56 AM
--- NOTE | 2017-08-18 12:22 | EMERGENCY ROOM VISIT NOTE ---
ED Visit Note First contact with patient: 10:57 This Patient was discussed with the physician assistant portfolio manager, Roverto House PA-C. The pertinent historical and physical exam findings were confirmed. I agree with the studies ordered and with the interpretations of these studies. I agree with the disposition and care plan.
[2017-08-18 13:01] VITALS: O2SAT 96; Ht 177.8 cm; Wt 128.6 kg
[2017-08-18] MEDS ORDERED: MoRPHine SULFATE 2 MG/ML CARP IV PRN (15:15)
[2017-08-18] MEDS ORDERED: NITROGLYCERIN 0.4 MG SL PER TAB CHARGE SL PRN (15:15)
[2017-08-18] MEDS ORDERED: ALUMINUM/MAGNESIUM/SIMETH (MAALOX MAX) 30 ML UDC PO PRN (15:15)
[2017-08-18] MEDS ORDERED: POLYETHYLENE (MIRALAX) 17 GM PACK PO PRN (15:15)
[2017-08-18] MEDS ORDERED: ZOLPIDEM TARTRATE 5 MG TAB PO PRN ×2 (15:15)
[2017-08-18] MEDS ORDERED: ONDANSETRON INJ 2 MG/ML 2 ML VIAL IV PRN (15:15)
[2017-08-18] MEDS ORDERED: MAGNESIUM HYDROXIDE SUSP 30 ML UDC PO PRN (15:15)
[2017-08-18] MEDS ORDERED: IV FLUIDS COMPLETED PRN (16:00)
[2017-08-18 18:11] VITALS: BP 160/78; PULSE 89; TEMP 36.3; O2SAT 94
[2017-08-18 18:12] VITALS: O2SAT 94
[2017-08-18] MEDS: ACETAMINOPHEN 325 MG TAB PO PRN (18:31)
[2017-08-18] MEDS: NITROGLYCERIN 2% OINTMENT 30GM TUBE EXT SCH (18:31)
[2017-08-18] MEDS: SODIUM CHLORIDE 0.9% 1000ML 1,000 ML IV SCH (18:33)
[2017-08-18 18:41] VITALS: BP 134/84; PULSE 71
[2017-08-18 20:00] VITALS: O2SAT 94
[2017-08-18 20:29] VITALS: BP 119/79; PULSE 83; TEMP 36.7; O2SAT 94
[2017-08-18] MEDS: AMOXICILLIN/CLAVULANATE TAB 875 MG TAB PO SCH (21:04)
[2017-08-18] MEDS: SULFAMETHOXAZOLE/TRIMETHOPRIM DS 800/160MG TAB PO SCH (21:04)
[2017-08-18] MEDS: HEPARIN SOD 5000 UNIT/0.5 ML CARP SQ SCH (21:13)
--- NOTE | 2017-08-18 23:27 | History and Physical ---
History & Physical Date & Time of Service: Aug 18, 2017 at 23:23 Chief Complaint: Chest Pain Primary Care Physician: Suzanne Frye M.D. History of Present Illness Source: patient, family 76-year-old man with past medical history of obstructive sleep apnea noncompliant with his CPAP machine, also has history of hypertension and morbid obesity. Patient did have multiple surgeries in her back complicated by surgical wound infection currently on chronic suppression with antibiotics. Patient was in his regular state of health until 2 days prior to admission where he started developing intermittent chest tightness. Chest tightness was associated with shortness of breath. Pain was localized in the substernal area , intensity ranges from moderate to severe. Recently diagnosed with high blood pressure and started to monitor his pressures regularly. Said that lately his pressure has been more than 160 systolic. Presented to the ED for further evaluation and management Family History Diabetes mellitus FH: [place] (myocardial infarction) FH: alcoholism Heart disease Hypertension Social History Smoking Status: Never Smoker Drug Use: none Marital Status: Housing status: lives with family Occupational Status: retired Immunizations History of Influenza Vaccine: Yes Influenza Vaccine Date: Mar 13, 2014 History of Tetanus Vaccine?: Yes Tetanus Immunization Date: Jan 20, 2011 History of Pneumococcal: Yes Pneumococcal Date: Feb 06, 2009 History of Hepatitis B Vaccine: No Allergies Coded Allergies: No Known Allergies (Verified , `, 08/18/17) Home Medications Scheduled Amoxicillin & Pot Clavulanate (Amoxicillin/Clavulanate P), 1 TAB PO BID Glucosamine Sulfate (Glucosamine Sulfate), 2 TAB PO QAM Probiotic Product (Probiotic), 1 CAP PO QAM Sulfa/Trimethoprim (Bactrim Ds 800MG/160MG), 1 TAB PO BID Review of Systems Review of system Constitutional: No fever / no chills / no sweats / no weakness / no fatigue Eyes: no blurring of vision / no eye pain / no discharge / no redness ENT: no hearing loss / no epistaxis /no swallowing problems Respiratory: no cough / no wheezing / no SOB / no hemoptysis Cardiovascular: As in HPI chest pain / no lower extremity edema / no palpitation Abdomen: no pain / no nausea / no vomiting / no constipation Musculoskeletal: no joint pain / no muscle pain / no joint swelling Genitourinary: no dysuria / no incontinence / no urinary retention Neurologic: no focal weakness / no numbness/tingling / no ataxia Psychiatric: no depression symptoms / no anxiety / no insomnia Endocrine: no excessive thirst / no excessive urination Hematologic: no abnormal bleeding / no bruising / no LN swelling Skin: No rash / no pallor Physical Exam Vital Signs Date Time Temp Pulse Resp B/P (MAP) Pulse Ox O2 Delivery O2 Flow Rate FiO2 08/18/17 20:29 36.7 83 20 119/79 (92) 94 Room Air 08/18/17 18:41 71 134/84 (101) 08/18/17 18:11 36.3 89 20 160/78 (105) 94 Room Air 08/18/17 16:37 93 18 111/84 94 Room Air 08/18/17 16:19 98 20 99/70 94 Room Air 08/18/17 15:48 86 20 134/80 96 Room Air 08/18/17 15:01 154/94 08/18/17 15:00 78 16 95 08/18/17 14:45 86 12 93 08/18/17 14:31 163/93 08/18/17 14:30 81 19 93 08/18/17 14:15 70 19 96 08/18/17 14:15 86 16 145/91 95 Room Air 08/18/17 14:01 83 18 93 08/18/17 13:39 142/100 08/18/17 13:32 150/67 08/18/17 13:31 84 24 96 08/18/17 13:20 86 22 153/75 97 Room Air 08/18/17 13:19 153/75 08/18/17 13:01 72 24 171/107 08/18/17 13:01 96 Room Air 08/18/17 12:31 160/100 08/18/17 12:30 73 13 96 08/18/17 12:01 141/83 08/18/17 12:00 80 16 95 08/18/17 11:31 148/90 08/18/17 11:30 82 21 96 08/18/17 11:30 81 148/90 99 Room Air 08/18/17 11:07 88 18 155/76 94 Room Air 08/18/17 11:04 94 08/18/17 11:00 96 Room Air 08/18/17 10:53 36.7 104 18 159/99 94 Room Air Physical examination General patient appears to be comfortable, not in acute distress, morbidly obese HEENT: Atraumatic , normocephalic /no jaundice /no pallor /anicteric /no dry mucous membrane /normal external ear inspection Neck: Supple /no swelling /central trach Heart: S1/S2 normal/regular rate and rhythm/no gallop /no rub /no murmur Lungs: Clear to auscultation bilaterally/normal chest with expansion/no rhonchi/ no rales/no wheezing/no use of accessory muscles of respiration Abdomen: Soft/nontender/no guarding/no rebound/no organomegaly/no pulsatile mass Musculoskeletal: No swelling/no edema/no tenderness/normal range of motion Neuro exam: Awake alert oriented 3/cranial nerves II through XII appear to be intact/sensation intact/moves all extremities/no abnormal movements Psychiatric evaluation: No depressed mood/normal affect Skin: No rash on exposed skin area/no erythema Extremity: Normal pulse/no pitting edema/no clubbing or cyanosis Endocrine/lymphatic: No obvious lymphadenopathy /no lymphedema Diagnostics Laboratory Results Results Past 24 Hours Test 08/18/17 11:20 08/18/17 13:15 08/18/17 20:31 Range/Units White Blood Count 6.76 4.8-10.8 K/uL Red Blood Count 4.79 4.7-6.1 M/uL Hemoglobin 14.6 14.0-18.0 g/dL Hematocrit 42.6 42-52 % Mean Corpuscular Volume 88.9 80-100 fL Mean Corpuscular Hemoglobin 30.5 25-34 pg Mean Corpuscular Hemoglobin Concent 34.3 32-36 g/dl Platelet Count 223 130-400 K/uL Mean Platelet Volume 8.9 7.4-10.4 fL Neutrophils (%) (Auto) 67.9 % Lymphocytes (%) (Auto) 15.1 % Monocytes (%) (Auto) 9.2 % Eosinophils (%) (Auto) 7.0 % Basophils (%) (Auto) 0.4 % Neutrophils # (Auto) 4.59 1.4-6.5 K/uL Lymphocytes # (Auto) 1.02 1.2-3.4 K/uL Monocytes # (Auto) 0.62 0.11-0.59 K/uL Eosinophils # (Auto) 0.47 0-0.5 K/uL Basophils # (Auto) 0.03 0-0.2 K/uL RDW Standard Deviation 46.4 36.4-46.3 fL RDW Coefficient of Variation 14.2 11.5-14.5 % Immature Granulocyte % (Auto) 0.4 % Immature Granulocyte # (Auto) 0.03 0.00-0.02 K/uL Prothrombin Time 10.6 9.0-12.0 SECONDS Prothromb Time International Ratio 1.0 0.9-1.1 Activated Partial Thromboplast Time 25.7 21.0-31.0 SECONDS Partial Thromboplastin Ratio 1.0 Sodium Level 136 136-145 mmol/L Potassium Level 3.7 3.5-5.1 mmol/L Chloride Level 103 98-107 mmol/L Carbon Dioxide Level 25 21-32 mmol/L Anion Gap 8.0 3-11 mmol/L Blood Urea Nitrogen 9 7-18 mg/dl Creatinine 0.99 0.60-1.40 mg/dl Est Creatinine Clear Calc Drug Dose 85.0 ml/min Estimated GFR () 86.6 Estimated GFR (Non- 74.7 BUN/Creatinine Ratio 8.7 10-20 Random Glucose 133 70-99 mg/dl Calcium Level 8.5 8.5-10.1 mg/dl Magnesium Level 2.0 1.8-2.4 mg/dl Total Bilirubin 0.7 0.2-1 mg/dl Aspartate Amino Transf (AST/SGOT) 15 15-37 U/L Alanine Aminotransferase (ALT/SGPT) 21 12-78 U/L Alkaline Phosphatase 79 45-117 U/L Total Creatine Kinase 80 39-308 U/L Creatine Kinase MB 1.7 0.5-3.6 ng/ml Creatine Kinase MB Ratio 2.1 0-3.0 Troponin I < 0.015 < 0.015 0-0.045 ng/ml Pro-B-Type Natriuretic Peptide 197 0-900 pg/ml Total Protein 6.8 6.4-8.2 gm/dl Albumin 3.6 3.4-5.0 gm/dl Globulin 3.2 2.5-4.0 gm/dl Albumin/Globulin Ratio 1.1 0.9-2 Thyroid Stimulating Hormone (TSH) 1.690 0.300-4.500 uIu/ml Urine Color YELLOW Urine Appearance CLEAR CLEAR Urine pH 6.5 4.5-7.5 Urine Specific [place] 1.019 1.000-1.030 Urine Protein NEG NEG Urine Glucose (UA) NEG NEG Urine Ketones NEG NEG Urine Occult Blood NEG NEG Urine Nitrite NEG NEG Urine Bilirubin NEG NEG Urine Urobilinogen NEG NEG Urine Leukocyte Esterase SMALL NEG Urine WBC (Auto) 5-10 0-5 /hpf Urine RBC (Auto) 0-4 0-4 /hpf Urine Hyaline Casts (Auto) 1-5 0-5 /lpf Urine Epithelial Cells (Auto) 10-20 0-5 /lpf Urine Bacteria (Auto) NEG NEG Impression Assessment and Plan 76-year-old man was past medical history of hypertension, morbid obesity, multiple back surgery complicated with surgical wound infection and chronic suppression with antibiotics. Patient also has obstructive sleep apnea but does not use CPAP machine. Presented to the hospital with intermittent shortness of breath and chest pain. Assessment Chest pain rule out ACS Hypertension Morbid obesity History of osteomyelitis on chronic suppression with antibiotics Obstructive sleep apnea compliant with his CPAP plan: admit to telemetry obtain serial cardiac enz NTG SL/topical prn CP consult equal opportunity counselor pain management Check hemoglobin A1c/lipids to stratify patient risk factors repeat EKG prn chest pain Advanced Directives Existing Living Will: Yes Existing Power of Human Resources Technician: Yes Resuscitation Status VTE Prophylaxis Will order VTE Prophylaxis: Yes
[2017-08-19 00:14] VITALS: BP 121/79; PULSE 68; TEMP 36.7; O2SAT 93
[2017-08-19] MEDS: NITROGLYCERIN 2% OINTMENT 30GM TUBE EXT SCH ×3 (00:31→11:56)
[2017-08-19 03:10] LABS: BASO % 0.2 %; BASO ABS # 0.02 K/uL (0-0.2); EOS % 4.9 %; HEMATOCRIT 41.8 % (42-52); HEMOGLOBIN 14.6 g/dL (14.0-18.0); IG# 0.04 K/uL (0.00-0.02); LYMPH % 19.9 %; LYMPH ABS # 1.61 K/uL (1.2-3.4); MEAN CELL VOLUME 89.5 fL (80-100); MEAN CORPUSCULAR HEMOGLOBIN 31.3 pg (25-34); MEAN CORPUSCULAR HGB CONC 34.9 g/dl (32-36); MEAN PLATELET VOLUME 8.9 fL (7.4-10.4); MONO % 9.5 %; MONO ABS # 0.77 K/uL (0.11-0.59); NEUT ABS # 5.25 K/uL (1.4-6.5); PLATELET COUNT 223 K/uL (130-400); RED CELL DISTRIBUTION WIDTH CV 14.3 % (11.5-14.5); RED CELL DISTRIBUTION WIDTH SD 46.9 fL (36.4-46.3); WHITE BLOOD COUNT 8.09 K/uL (4.8-10.8)
[2017-08-19 03:22] VITALS: BP 132/92; PULSE 129; TEMP 36.8; O2SAT 90
[2017-08-19 03:32] LABS: ALBUMIN 3.5 gm/dl (3.4-5.0); ALT/SGPT 24 U/L (12-78); AST/SGOT 16 U/L (15-37); BLOOD UREA NITROGEN 10 mg/dl (7-18); CALCIUM 8.4 mg/dl (8.5-10.1); CARBON DIOXIDE 25 mmol/L (21-32); GLUCOSE 106 mg/dl (70-99); POTASSIUM 3.9 mmol/L (3.5-5.1); SODIUM 136 mmol/L (136-145)
[2017-08-19 03:35] LABS: ALKALINE PHOSPHATASE 85 U/L (45-117); CHOLESTEROL 162 mg/dl (0-200); LDL CHOLESTEROL CALCULATED 96 mg/dl; TOTAL PROTEIN 6.7 gm/dl (6.4-8.2)
[2017-08-19 05:09] VITALS: BP 128/83; PULSE 69; TEMP 36.9; O2SAT 92
[2017-08-19] MEDS: HEPARIN SOD 5000 UNIT/0.5 ML CARP SQ SCH ×2 (05:45→14:00)
[2017-08-19] MEDS: ACETAMINOPHEN 325 MG TAB PO PRN ×2 (05:47→12:36)
[2017-08-19 06:43] LABS: HEMOGLOBIN A1C 5.7 % (4.5-5.6)
[2017-08-19 07:44] VITALS: BP 120/77; PULSE 64; TEMP 36.5; O2SAT 95
[2017-08-19] MEDS: AMOXICILLIN/CLAVULANATE TAB 875 MG TAB PO SCH (08:26)
[2017-08-19] MEDS: SULFAMETHOXAZOLE/TRIMETHOPRIM DS 800/160MG TAB PO SCH (08:26)
[2017-08-19] MEDS ORDERED: ASPIRIN 325 MG ECTAB PO SCH (09:00)
--- NOTE | 2017-08-19 09:48 | Cardiology Consultation ---
Cardiology Consultation Date of Consultation: Aug 19, 2017. Requesting Physician: Dr. Casarez Reason for Consultation: Chest pain Pt evaluation today including: conversation w/ patient, physical exam, lab review, review of studies, review of inpatient medication list History of Present Illness This is a very pleasant 76-year-old gentleman who had recent onset of epigastric and substernal chest discomfort. He had never had it before, he does have a history of morbid obesity, a lot of back problems with multiple surgeries, at least recently diagnosed hypertension and apparently a lot of stress. He developed epigastric and substernal severe discomfort approximately 4 days prior to admission, it was intermittent, severe and located in the epigastric area with some radiation up to his sternum but not to his shoulder, neck or back. The discomfort felt like someone pushing very hard in that area. It was not exertional, it lasted for hours when he got it. He does however report that after receiving multiple nitroglycerin in the emergency room the discomfort seemed to resolve, however he is starting to feel it again this morning. Evaluation so far has included serial cardiac enzymes which are negative 3, serial electrocardiograms which were all negative. Past Medical/Surgical History (1) H/O spinal fusion (2) H/O detached retina repair (3) Hx of repair of left rotator cuff (4) Status post total left knee replacement (5) Hx of cataract surgery Hypertension Family History Diabetes mellitus FH: NC (myocardial infarction) FH: alcoholism Heart disease Hypertension Social History Smoking Status: Never Smoker History of Alcohol Use: Yes (rarely) Review of Systems Constitutional: No fever, No weight loss, No weakness Respiratory: No cough, No wheezing, No shortness of breath, No dyspnea on exertion Cardiac: + see HPI, + chest pain, No orthopnea, No PND, No edema, No palpitations Abdomen: No pain, No nausea, No vomiting, No diarrhea, No GI bleeding Male : No urinary frequency, No nocturia more than once/night, No slowing stream, No sexual dysfunction Neurologic: No paralysis, No weakness, No numbness/tingling, No balance problems Heme: No abnormal bleeding/bruising, No clotting problems Endo: No fatigue Skin: No problem reported All Other Systems: Reviewed and Negative Allergies Coded Allergies: No Known Allergies (Verified , `, 08/18/17) Medications Current Inpatient Medications Medications (Trade) Dose Ordered Sig/Bro Route Start Time Stop Time Status Last Admin Dose Admin Trimethoprim/ Sulfamethoxazole (Septra Ds 800/ 160MG Tab) 1 tab BID PO 08/18/17 21:00 09/17/17 20:59 08/19/17 08:26 1 TAB Amoxicillin/ Clavulanate Potassium (Augmentin Tab) 875 mg BID PO 08/18/17 21:00 09/17/17 20:59 08/19/17 08:26 875 MG Heparin Sodium (Porcine) (Heparin Sq 5000 Unit/0.5ml) 5,000 unit Q8 SQ 08/18/17 22:00 09/17/17 21:59 08/19/17 05:45 5,000 UNIT Sodium Chloride 1,000 ml @ 50 mls/hr Q20H IV 08/18/17 16:30 09/17/17 16:29 08/18/17 18:33 50 MLS/HR Acetaminophen (Tylenol Tab) 650 mg Q4H PRN PO 08/18/17 15:15 09/17/17 15:14 08/19/17 05:47 650 MG Al Hydrox/Mg Hydrox/Simethicone (Maalox Max Susp) 15 ml Q4H PRN PO 08/18/17 15:15 09/17/17 15:14 Magnesium Hydroxide (Milk Of Magnesia Susp) 30 ml Q12H PRN PO 08/18/17 15:15 09/17/17 15:14 Zolpidem Tartrate (Ambien Tab) 5 mg HSZ PRN PO 08/18/17 15:15 09/17/17 15:14 Ondansetron HCl (Zofran Inj) 4 mg Q6H PRN IV 08/18/17 15:15 09/17/17 15:14 Nitroglycerin (Nitrostat Tab) 0.4 mg UD PRN SL 08/18/17 15:15 09/17/17 15:14 08/18/17 16:19 0.4 MG Nitroglycerin (Nitroglycerin 2% Oint) 1 inch Q6 EXT 08/18/17 18:00 09/17/17 17:59 08/19/17 05:32 1 INCH Morphine Sulfate (MoRPHine SULFATE INJ) 2 mg Q30M PRN IV 08/18/17 15:15 09/01/17 15:14 Aspirin (Ecotrin Tab) 325 mg QAM PO 08/19/17 09:00 09/18/17 08:59 08/19/17 08:26 325 MG Polyethylene (Miralax Powder Packet) 17 gm DAILY PRN PO 08/18/17 15:15 09/17/17 15:14 Miscellaneous (Iv Fluids Completed) 1 ea PRN PRN N/A 08/18/17 16:00 08/18/18 15:59 Physical Exam Vital Signs Past 12 Hours Date Time Temp Pulse Resp B/P (MAP) Pulse Ox O2 Delivery O2 Flow Rate FiO2 08/19/17 07:44 36.5 64 18 120/77 (91) 95 08/19/17 05:09 36.9 69 18 128/83 (98) 92 Room Air 08/19/17 04:00 Room Air 08/19/17 00:14 36.7 68 18 121/79 (93) 93 Room Air 08/19/17 00:00 Room Air Constitutional: General Apperance: obese Level of Distress: mild distress Psychiatric: Mental Status: active & alert Head: normocephalic Eyes: EOM: EOMI ENMT: normal ENT inspection, hearing grossly normal Neck: supple, no masses Lungs: Respiratory effort: no dyspnea, good air movement Auscultation: breath sounds normal, no wheezing Cardiovascular: Heart Auscultation: RRR, no murmurs, no rubs, no gallops Peripheral Pulses: Bruits: none appreciated Abdomen: Bowel Sounds: normal Inspection & Palpation: soft, no tenderness, guarding & rebound, no masses Musculoskeletal: normal strength (5/5 throughout) Extremities: no edema Neurologic: Cranial Nerves: grossly intact Sensation: grossly intact Data Laboratory Results: Last 24 Hours Test 08/18/17 11:20 08/18/17 13:15 08/18/17 20:31 08/19/17 02:56 White Blood Count 6.76 K/uL 8.09 K/uL Red Blood Count 4.79 M/uL 4.67 M/uL Hemoglobin 14.6 g/dL 14.6 g/dL Hematocrit 42.6 % 41.8 % Mean Corpuscular Volume 88.9 fL 89.5 fL Mean Corpuscular Hemoglobin 30.5 pg 31.3 pg Mean Corpuscular Hemoglobin Concent 34.3 g/dl 34.9 g/dl Platelet Count 223 K/uL 223 K/uL Mean Platelet Volume 8.9 fL 8.9 fL Neutrophils (%) (Auto) 67.9 % 65.0 % Lymphocytes (%) (Auto) 15.1 % 19.9 % Monocytes (%) (Auto) 9.2 % 9.5 % Eosinophils (%) (Auto) 7.0 % 4.9 % Basophils (%) (Auto) 0.4 % 0.2 % Neutrophils # (Auto) 4.59 K/uL 5.25 K/uL Lymphocytes # (Auto) 1.02 K/uL 1.61 K/uL Monocytes # (Auto) 0.62 K/uL 0.77 K/uL Eosinophils # (Auto) 0.47 K/uL 0.40 K/uL Basophils # (Auto) 0.03 K/uL 0.02 K/uL RDW Standard Deviation 46.4 fL 46.9 fL RDW Coefficient of Variation 14.2 % 14.3 % Immature Granulocyte % (Auto) 0.4 % 0.5 % Immature Granulocyte # (Auto) 0.03 K/uL 0.04 K/uL Prothrombin Time 10.6 SECONDS Prothromb Time International Ratio 1.0 Activated Partial Thromboplast Time 25.7 SECONDS Partial Thromboplastin Ratio 1.0 Sodium Level 136 mmol/L 136 mmol/L Potassium Level 3.7 mmol/L 3.9 mmol/L Chloride Level 103 mmol/L 105 mmol/L Carbon Dioxide Level 25 mmol/L 25 mmol/L Anion Gap 8.0 mmol/L 6.0 mmol/L Blood Urea Nitrogen 9 mg/dl 10 mg/dl Creatinine 0.99 mg/dl 1.00 mg/dl Est Creatinine Clear Calc Drug Dose 85.0 ml/min 87.3 ml/min Estimated GFR () 86.6 85.6 Estimated GFR (Non- 74.7 73.8 BUN/Creatinine Ratio 8.7 10.1 Random Glucose 133 mg/dl 106 mg/dl Calcium Level 8.5 mg/dl 8.4 mg/dl Magnesium Level 2.0 mg/dl 2.0 mg/dl Total Bilirubin 0.7 mg/dl 1.0 mg/dl Aspartate Amino Transf (AST/SGOT) 15 U/L 16 U/L Alanine Aminotransferase (ALT/SGPT) 21 U/L 24 U/L Alkaline Phosphatase 79 U/L 85 U/L Total Creatine Kinase 80 U/L Creatine Kinase MB 1.7 ng/ml Creatine Kinase MB Ratio 2.1 Troponin I < 0.015 ng/ml < 0.015 ng/ml < 0.015 ng/ml Pro-B-Type Natriuretic Peptide 197 pg/ml Total Protein 6.8 gm/dl 6.7 gm/dl Albumin 3.6 gm/dl 3.5 gm/dl Globulin 3.2 gm/dl 3.2 gm/dl Albumin/Globulin Ratio 1.1 1.1 Thyroid Stimulating Hormone (TSH) 1.690 uIu/ml Urine Color YELLOW Urine Appearance CLEAR Urine pH 6.5 Urine Specific [place] 1.019 Urine Protein NEG Urine Glucose (UA) NEG Urine Ketones NEG Urine Occult Blood NEG Urine Nitrite NEG Urine Bilirubin NEG Urine Urobilinogen NEG Urine Leukocyte Esterase SMALL Urine WBC (Auto) 5-10 /hpf Urine RBC (Auto) 0-4 /hpf Urine Hyaline Casts (Auto) 1-5 /lpf Urine Epithelial Cells (Auto) 10-20 /lpf Urine Bacteria (Auto) NEG Estimated Average Glucose 117 mg/dl Hemoglobin A1c 5.7 % Triglycerides Level 111 mg/dl Cholesterol Level 162 mg/dl HDL Cholesterol 44 mg/dl LDL Cholesterol, Calculated 96 mg/dl VLDL Cholesterol, Calculated 22 mg/dl Cholesterol/HDL Ratio 3.7 Test 08/19/17 09:07 Imaging: Chest x-ray on admission was unremarkable EKG: Sinus rhythm with first-degree AV block, no acute changes Telemetry reviewed: Sinus rhythm, no significant arrhythmia Assessment & Plan 1. Epigastric and substernal discomfort: He developed severe epigastric and substernal chest discomfort which is not exercise related, lasts multiple hours and he has had negative cardiac enzymes and no electrocardiographic changes. It is very unlikely this is cardiac in nature. He does have risk factors for heart disease but I doubt heart disease is causing his symptoms. He did however respond to nitroglycerin, but it took multiple nitroglycerin and the discomfort was present for many hours before that. I suspect it is GI in nature , possibly esophageal spasm, however I agree we need to exclude heart disease. I agree with a stress test which is scheduled for today. He needs a pharmacologic stress test due to his back and knee problems and he cannot walk on a treadmill. 2. Hypertension: He describes recent exacerbation of hypertension for unclear reasons, however his blood pressure has been well controlled here. 3. Cholesterol status: He is not on a statin but his cholesterol profile is very good. Thank you for allowing me to participate in his care.
[2017-08-19 11:37] VITALS: BP 143/88; PULSE 70; TEMP 36.4; O2SAT 94
[2017-08-19] MEDS: SODIUM CHLORIDE 0.9% 1000ML 1,000 ML IV SCH (11:56)
[2017-08-19] MEDS ORDERED: NURSING VERBAL MED ORDER ONE (12:00)
[2017-08-19] MEDS ORDERED: ALUMINUM/MAGNESIUM SUSP 18 ML, LIDOCAINE HCL 2% VISCOUS SOLN 6 ML, BARCODE IDENTIFIER 1 EA PO ONE ×2 (12:15)
[2017-08-19] MEDS ORDERED: ATROPINE SULFATE 0.1 MG/ML 5ML SYR ONE ×2 (14:59)
[2017-08-19] MEDS ORDERED: METOPROLOL TARTRATE 1 MG/ML VIAL ONE ×2 (14:59)
[2017-08-19] MEDS ORDERED: DOBUTamine HCL 12.5 MG/ML 20 ML VIAL ONE (14:59)
[2017-08-19] MEDS ORDERED: PERFLUTREN LIPID MICROSPHERE (DEFINITY) IV ONE (15:33)
[2017-08-19] MEDS ORDERED: MLXESC PO (15:46)
[2017-08-19] MEDS ORDERED: PANT40TA PO (15:46)
--- NOTE | 2017-08-19 15:51 | Discharge Instructions ---
Discharge Instructions Date of Service Aug 19, 2017. Admission Reason for Admission: Chest Pain Discharge Discharge Diagnosis / Problem: Chest pain has rule out ACS Discharge Goals Goal(s): Decrease discomfort, Improve function, Increase independence, Improve disease control, Improve nutritional status, Learn about illness, Diagnostic testing, Therapeutic intervention, Prevent Disease Progression, Specific goals Activity Recommendations Activity Limitations: resume your previous activity . Instructions / Follow-Up Instructions / Follow-Up You have chest pain rule out ACS by cardiac enzymes negative 3, dobutamine stress test was done, per cardiology verbal report it was negative You need to follow-up with your primary care physician for the formal report of stress test the chest pain possible GI source, I ordered Maalox and Protonix for you you need to follow-up with PCP upon this, prescription is enclosed in this discharge - you need to follow up with your primary care physician in 1 week, - take medication as instructed, never overdose or any misuse, or take with alcohol, because misuse of medicine may cause organ damage or , call your primary care physician if have questions of medicaitons. - call your primary care physician OR go to local emergency room if has any fever/chill, chest pain, shortness of breathing, nausea/vomiting/abdominal pain , facial droop/slurry speech/local weakness, or if has any questions. - fall precaution - diet as instructed Current Hospital Diet Patient's current hospital diet: Regular Diet Discharge Diet Recommended Diet: AHA Diet (Heart Healthy) Procedures Procedures Performed: Dobutamine stress test Pending Studies Studies pending at discharge: no Laboratory Results Hemoglobin A1c Test 08/19/17 02:56 Range/Units Estimated Average Glucose 117 mg/dl Hemoglobin A1c 5.7 H 4.5-5.6 % Lipid Panel Test 08/19/17 02:56 Range/Units Triglycerides Level 111 0-150 mg/dl Cholesterol Level 162 0-200 mg/dl HDL Cholesterol 44 mg/dl Cholesterol/HDL Ratio 3.7 LDL Cholesterol, Calculated 96 mg/dl Medical Emergencies . Who to Call and When: Medical Emergencies: If at any time you feel your situation is an emergency, please call 911 immediately. . Non-Emergent Contact Non-Emergency issues call your: Primary Care Provider . . "Provider Documentation" section prepared by Nirav Sparks. .
[2017-08-19 15:53] VITALS: BP 143/88; PULSE 70; TEMP 36.4; O2SAT 94
--- NOTE | 2017-08-19 16:05 | Discharge Summary ---
Discharge Summary Date of Service Aug 19, 2017. Discharge Summary Admission Date: Aug 18, 2017 at 15:21 Discharge Date: Aug 19, 2017 Discharge Disposition: Home Principal Diagnosis: Non-cardiac chest pain Problems/Secondary Diagnoses: GERD KD Morbid obesity Anxiety h/o osteomyelitis on chronic suppression with antibiotics Immunizations: Have You Had Influenza Vaccine: Yes Influenza Vaccine Date: Mar 13, 2014 History of Tetanus Vaccine?: Yes Tetanus Immunization Date: Jan 20, 2011 History of Pneumococcal: Yes Pneumococcal Date: Feb 06, 2009 History of Hepatitis B Vaccine: No Procedures: CHEST ONE VIEW PORTABLE CLINICAL HISTORY: chest pain dyspnea COMPARISON STUDY: 12/26/2016 FINDINGS: Mild stable cardia megaly. Electrodes overlying the mid thoracic spine. Lungs are clear. Mild chronic elevation right hemidiaphragm. IMPRESSION: No acute process. Mild stable cardiomegaly. The above report was generated using voice recognition software. It may contain grammatical, syntax or spelling errors. Electronically signed by: Ramírez Hyde M.D. 08/18/2017 11:56 AM Dictated Date/Time: 08/18/2017 11:56 AM The status of this report is Signed. Draft = Not yet reviewed or approved by Radiologist. Signed = Reviewed and approved by Radiologist. Consultations: Cardiology Medication Reconciliation New Medications: Pantoprazole Sodium (Protonix) 40 Mg Tab 1 TAB PO DAILY for 30 Days, #30 TAB 5 Refills Aluminum/Magnesium/Simeth (Mag-Al Plus Xs 400-400-40 mg/5Ml) 30 Ml Susp 15 ML PO Q4H PRN for Dyspepsia for 5 Days Continued Medications: Amoxicillin & Pot Clavulanate (Amoxicillin/Clavulanate P) 1 Tab Tab 1 TAB PO BID Glucosamine Sulfate (Glucosamine Sulfate) 1,000 Mg Tab 2 TAB PO QAM Probiotic Product (Probiotic) 1 Cap Cap 1 CAP PO QAM Sulfa/Trimethoprim (Bactrim Ds 800MG/160MG) Tab 1 TAB PO BID, #6 TAB Discharge Exam Review of Systems: Constitutional: No fever, No chills, No sweats, No weakness, No fatigue Eyes: No worsening of vision ENT: No hearing loss, No sore throat Respiratory: No cough, No shortness of breath, No hemoptysis Cardiovascular: No chest pain, No edema, No palpitations Abdomen: No pain, No nausea, No vomiting, No diarrhea, No constipation, No GI bleeding Musculoskeletal: No joint pain, No muscle pain, No swelling, No calf pain Genitourinary - Male: No hematuria, No dysuria Neurologic: No weakness, No numbness/tingling Psychiatric: No depression symptoms, No anxiety Endocrine: No fatigue Hematologic / Lymphatic: No abnormal bleeding/bruising Integumentary: No rash, No itch, No new/changing skin lesions Physical Exam: General Appearance: no apparent distress, + obese Eyes: normal inspection, PERRL ENT: hearing grossly normal Neck: supple Respiratory/Chest: lungs clear, no respiratory distress, no accessory muscle use Cardiovascular: regular rate, rhythm Abdomen / GI: normal bowel sounds, non tender, soft Extremities: no calf tenderness, no pedal edema Neurologic/Psychiatric: alert, normal mood/affect, oriented x 3 Skin: normal color, warm/dry, no rash Hospital Course 76-year-old man was past medical history of hypertension, morbid obesity, multiple back surgery complicated with surgical wound infection and chronic suppression with antibiotics. Patient also has obstructive sleep apnea but does not use CPAP machine. Presented to the hospital with intermittent shortness of breath and chest pain. Chest pain rule-out ACS, likely secondary to GERD: - Admit to tele for cardiac monitoring- no acute events - O2 protocol - Cardiac enzymes- negative - Dobutamine stress ECHO- negative h/o osteomyelitis on chronic suppression with antibiotics: Continue antibiotic treatment and outpatient f/u HTN: - Controlled while inpatient on Nitro ointment - Recommend logging BPs 1-2 times daily and f/u w/ PCP Morbid obesity: Encouraged diet and exercise Anxiety: Recently quit Zoloft himself due to side effects, notes recent stressors in life and increased anxiety- recommend PCP f/u to discuss medications KD: Continue CPAP HS h/o GERD: Restart Protonix daily and Maalox PRN DVT prophylaxis: Heparin SQ TID Code status: LEVEL I, FULL Dispo: Discharge to home Total Time Spent: Greater than 30 minutes This includes examination of the patient, discharge planning, medication reconciliation, and communication with other providers. Discharge Instructions Please refer to the electronic Patient Visit Report (Discharge Instructions) for additional information. Follow-Up Please follow-up with your PCP within 5-7 days Please follow-up/keep all of your subspecialty appointments Additional Copies To Suzanne Frye M.D.
--- NOTE | 2017-08-19 17:26 | DOBUTAMINE ECHO ---
*NOTICE TO RECEIVING LIBERTARIAN AGENCY This information is strictly Confidential and protected under [place] law. [place] law prohibits you from making any further disclosure of this information unless further disclosure is expressly permitted by the written consent of the person to whom it pertains or is authorized by law. A general authorization for the release of medical or other information is not sufficient for this purpose. Hospital accepts no responsibility if the information is made available to any other person, INCLUDING THE PATIENT. Interpretation Summary * Name: JASON MARINA Study Date: 08/19/2017 11:48 AM BP: 143/70 mmHg * Patient Location: [facility]\S\N281\S\1 HR: 77 * : 1940 (M/d/yyyy) Gender: Male Height: 70 in * Age: 76 yrs Ethnicity: [place] Weight: 283 lb * Ordering Physician: Nirav Sparks * Referring Physician: Suzanne Frye * Performed By: Grecia Perkins RCS * * Reason For Study: Chest Pain * BSA: 2.4 m2 * -- Conclusions -- * Dobutamine Stress Echo: * 1. Negative Dobutamine stress echo for ischemia at 103% and % MPHR. * 2. Negative Dobutamine ECG for ischemia at 103% MPHR. * 3. Appropriate blood pressure response. * 4. Nonsustained atrial tachycardia and brief run of atrial fibrillation on peak dose dobutamine and with atropine administration. Atrial arrhythmia spontaneously converted to sinus. * 5. No chest pain reported. * 6. Technically difficult study, enhanced with IV Definity. * Echo: * 1. Normal left ventricular size and systolic function. EF 60-65%. No regional wall motion abnormalities. Severe, asymmetric hypertrophy of the septal base. * 2. Moderate left atrial dilation. * 3. Mild mitral regurgitation. * 4. Technically difficult study, enhanced with IV Definity. Procedure Details * DOBUTAMINE ECHO, CPT#58976 * ECHO COLOR FLOW, CPT #89399 * ECHO DOPPLER, CPT #40393 * A contrast injection of Definity was performed to improve assessment of LV function. * Contrast was injected into an intravenous site in the left arm. * One vial of Definity ultrasound contrast was diluted in normal saline to a total volume of 10 ml. A total of '4' ml of solution was administered during imaging. * Lot # [id number] of Definity utilized for procedure. * Expiration date . * The attending nurse who injected the contrast agent was Angelina Davis RN. Left Ventricle * The left ventricle is normal in size. * There is normal left ventricular wall thickness. * Left ventricular systolic function is normal. * The left ventricular ejection fraction increases normally with stress. The left ventricular end-systolic cavity size reduces post-stress (normal response). The left ventricular wall motion with stress is normal. * Resting wall motion: Normal. Stress wall motion: Appropriate increase in Left ventricular systolic function and decrease in cavity size. No stress induced segmental wall motion abnormalities. Right Ventricle * The right ventricle is normal in size and function. * The right ventricular systolic function is normal as assessed by tricuspid annular plane systolic excursion (TAPSE) (normal >1.5 cm). Atria * The left atrium is moderately dilated. * Right atrial size is normal. Mitral Valve * There is mild mitral annular calcification. * There is no mitral valve stenosis. * There is mild mitral regurgitation. Tricuspid Valve * The tricuspid valve is not well visualized. * There is no tricuspid stenosis. * Significant tricuspid regurgitation is absent. Aortic Valve * The aortic valve is trileaflet. * No hemodynamically significant valvular aortic stenosis. * There is no significant aortic regurgitation. Pulmonic Valve * The pulmonary valve is inadequately visualized, but the Doppler data is adequate for interpretation. * There is no significant pulmonary regurgitation. Great Vessels * The aortic root is normal size. * Ascending aorta of normal dimension * IVC not well visualized. Pericardium * There is no pericardial effusion. Stress Parameters * Sinus rhythm at 77 bpm. * Stress ECG: No ST changes. No arrhythmias. * Nonsustained atrial tachycardia and brief run of atrial fibrillation on peak dose dobutamine and with atropine administration. * Rest heart rate was '77' BPM. * Rest blood pressure was '143/70' * Maximum heart rate achieved was 151 bpm. * Maximum heart rate was 103 % of maximum age-predicted heart rate. * Maximum blood pressure was '175/55' * Maximum Dobutamine infusion rate was '30' mcg/kg/min. * Dobutamine infusion was terminated due to achieving target heart rate * A total of 5 mg of IV Metoprolol was administered to reverse Dobutamine-induced tachycardia. * The patient did not exhibit any symptoms during drug infusion. * Normal blood pressure response to exercise. MMode 2D Measurements and Calculations IVSd 1.1 cm IVSs 1.5 cm LVIDd 4.1 cm LVIDs 2.7 cm LVPWd 1.1 cm LVPWs 1.6 cm IVS/LVPW 1.0 FS 33.7 % EDV(Teich) 75.4 ml ESV(Teich) 27.9 ml EF(Teich) 63.0 % EDV(cubed) 70.4 ml ESV(cubed) 20.5 ml EF(cubed) 70.9 % % IVS thick 32.3 % % LVPW thick 41.8 % LV mass(C)d 156.4 grams LV mass(C)dI 64.7 grams/m\S\2 LV mass(C)s 145.5 grams LV mass(C)sI 60.1 grams/m\S\2 SV(Teich) 47.5 ml SI(Teich) 19.7 ml/m\S\2 SV(cubed) 49.9 ml SI(cubed) 20.6 ml/m\S\2 Ao root diam 3.9 cm Ao root area 12.1 cm\S\2 ACS 1.2 cm LA dimension 4.9 cm asc Aorta Diam 3.1 cm LA/Ao 1.3 EDV(MOD-sp4) 165.7 ml ESV(MOD-sp4) 60.3 ml EF(MOD-sp4) 63.6 % EDV(MOD-sp2) 122.8 ml ESV(MOD-sp2) 47.3 ml EF(MOD-sp2) 61.5 % SV(MOD-sp4) 105.4 ml SI(MOD-sp4) 43.6 ml/m\S\2 SV(MOD-sp2) 75.5 ml SI(MOD-sp2) 31.2 ml/m\S\2 Doppler Measurements and Calculations MV E max elías 97.1 cm/sec MV A max elías 97.1 cm/sec MV E/A 1.0 MV P1/2t max elías 103.5 cm/sec MV P1/2t 98.7 msec MVA(P1/2t) 2.2 cm\S\2 MV dec slope 307.4 cm/sec\S\2 MV dec time 0.29 sec Ao V2 max 164.8 cm/sec Ao max PG 10.9 mmHg Ao max PG (full) 5.6 mmHg LV V1 max PG 5.2 mmHg LV V1 max 114.5 cm/sec TV E max elías 63.5 cm/sec PA V2 max 79.8 cm/sec PA max PG 2.6 mmHg
== END 2017-08-19 16:10 | disposition home or self-care (01) ==
LOC: C.EDB 10:52 → C.MED 15:21 → ENRESERV 16:09 → UNDOADMOB 17:37 → C.MED 17:37
PROVIDERS: ADMIT Internal Medicine; ATTEND Hospitalist
DX: R07.9 Chest pain, unspecified (principal); I10 Essential (primary) hypertension; I25.84 Coronary atherosclerosis due to calcified coronary lesion; I73.9 Peripheral vascular disease, unspecified; I51.7 Cardiomegaly; G47.33 Obstructive sleep apnea (adult) (pediatric); G47.10 Hypersomnia, unspecified; E66.01 Morbid (severe) obesity due to excess calories; G20 Parkinson's disease; Z86.718 Personal history of other venous thrombosis and embolism; Z81.1 Family history of alcohol abuse and dependence; Z85.46 Personal history of malignant neoplasm of prostate; Z82.49 Family history of ischemic heart disease and other diseases of the circulatory system; Z83.3 Family history of diabetes mellitus; Z96.652 Presence of left artificial knee joint; Z98.49 Cataract extraction status, unspecified eye; Z98.1 Arthrodesis status

== ENCOUNTER → 2017-10-01 | Day surgery (SDC) | payer OTHER ==
[2017-09-23 11:37] VITALS: BMI 37.0
[2017-09-23 11:38] VITALS: Ht 180.3 cm; Wt 122.7 kg
[~2017-10-01] VITALS: Ht 180.3 cm; Wt 122.7 kg
[~2017-10-01] MED LIST changes: -ANT25 PO; +ASPCH81X PO; -GLUC1000 PO; +GLUC100014 PO; -MISCCAP80 PO; +MULT-506 PO; -PRLSR20 PO; +SERT-234 PO; +SODIUM CHLORIDE 0.9% 500ML 500 ML IV ONE; -ZLF/50 PO
--- NOTE | 2017-10-01 13:28 | Endo History and Physical ---
History & Physical Date of Service: Oct 01, 2017. Chief Complaint: chronic GERD Referring Physician: Dr. Frye History of Present Illness HB Past Medical History Arthritis, Reflux, High Cholesterol Past Surgical History Hx Cardiac Surgery: No Hx Internal Defibrillator: No Hx Pacemaker: No Hx Abdominal Surgery: Yes (APPY) Hx of Implantable Prosthesis: No Hx Post-Op Nausea and Vomiting: No Hx Cancer Surgery: No Hx Thoracic Surgery: No Hx Orthopedic: Yes (LUMBAR SURGERY/REVISION/I&D (3 TOTAL SURGERY), LEFT RCR) Hx Urinary Tract Surgery: No Family History None Social History Smoking Status: Never Smoker Hx Substance Use: No Hx Alcohol Use: Yes (OCCASIONALLY) Allergies Coded Allergies: No Known Allergies (Verified , `, 09/23/17) Current Medications Reported Home Medications Medications Dose Route/Sig Max Daily Dose Days Date Category Aspirin Chewable (Aspirin) 81 Mg Chew 81 Mg PO QAM 09/23/17 Reported Glucosamine (Glucosamine Sulfate) 1,000 Mg Cap 1 Cap PO QAM 09/23/17 Reported Cozaar (Losartan Potassium) 25 Mg Tab 25 Mg PO QAM 09/23/17 Reported Multivitamin (Multivitamins) Tab 1 Tab PO QAM 09/23/17 Reported Bactrim Ds 800MG/160MG (Trimethoprim/Sulfamethoxazole) Tab 1 Tab PO BID 09/23/17 Reported Zoloft (Sertraline HCl) 100 Mg Tab 100 Mg PO QAM 09/23/17 Reported Aldactone (Spironolactone) 50 Mg Tab 50 Mg PO QAM 09/23/17 Reported Amoxicillin/Clavulanate P (Amoxicillin & Pot Clavulanate) 1 Tab Tab 1 Tab PO BID 04/19/15 Reported Vital Signs Weight (Kilograms): 122.73 Height (Feet): 5 Height (Inches): 11 Date Time Temp Pulse Resp B/P (MAP) Pulse Ox O2 Delivery O2 Flow Rate FiO2 10/01/17 12:22 36.4 92 20 109/72 (84) 95 Room Air Physical Exam General Appearance: WD/WN, no apparent distress Respiratory/Chest: Auscultation: breath sounds normal Cardiovascular: Heart Auscultation: RRR Abdomen: Bowel Sounds: normal Inspection & Palpation: soft, non-distended, no tenderness, guarding & rebound Assessment and Plan EGD with possible bx
--- NOTE | 2017-10-01 13:50 | Discharge Instructions ---
Endoscopy Patient Instructions Date / Procedure(s) Performed Oct 01, 2017. EGD Allergy Information Coded Allergies: No Known Allergies (Verified , `, 09/23/17) Discharge Date / Findings Oct 01, 2017. HH; non obstructing patent Schatzki ring Medication Instructions Stopped Medication(s): last dose ASA yesterday Restart Stopped Medication(s): Reported Home Medications Medications Dose Route/Sig Max Daily Dose Days Date Category Aspirin Chewable (Aspirin) 81 Mg Chew 81 Mg PO QAM 09/23/17 Reported Glucosamine (Glucosamine Sulfate) 1,000 Mg Cap 1 Cap PO QAM 09/23/17 Reported Cozaar (Losartan Potassium) 25 Mg Tab 25 Mg PO QAM 09/23/17 Reported Multivitamin (Multivitamins) Tab 1 Tab PO QAM 09/23/17 Reported Bactrim Ds 800MG/160MG (Trimethoprim/Sulfamethoxazole) Tab 1 Tab PO BID 09/23/17 Reported Zoloft (Sertraline HCl) 100 Mg Tab 100 Mg PO QAM 09/23/17 Reported Aldactone (Spironolactone) 50 Mg Tab 50 Mg PO QAM 09/23/17 Reported Amoxicillin/Clavulanate P (Amoxicillin & Pot Clavulanate) 1 Tab Tab 1 Tab PO BID 04/19/15 Reported Reported Home Medications Medications Dose Route/Sig Max Daily Dose Days Date Category Aspirin Chewable (Aspirin) 81 Mg Chew 81 Mg PO QAM 09/23/17 Reported Glucosamine (Glucosamine Sulfate) 1,000 Mg Cap 1 Cap PO QAM 09/23/17 Reported Cozaar (Losartan Potassium) 25 Mg Tab 25 Mg PO QAM 09/23/17 Reported Multivitamin (Multivitamins) Tab 1 Tab PO QAM 09/23/17 Reported Bactrim Ds 800MG/160MG (Trimethoprim/Sulfamethoxazole) Tab 1 Tab PO BID 09/23/17 Reported Zoloft (Sertraline HCl) 100 Mg Tab 100 Mg PO QAM 09/23/17 Reported Aldactone (Spironolactone) 50 Mg Tab 50 Mg PO QAM 09/23/17 Reported Amoxicillin/Clavulanate P (Amoxicillin & Pot Clavulanate) 1 Tab Tab 1 Tab PO BID 04/19/15 Reported Provider Instructions Activity Restrictions - No exercising or heavy lifting for 24 hours. - Do not drink alcohol the day of the procedure. - Do not drive a car or operate machinery until the day after the procedure. - Do not make any important decisions or sign important papers in 24 hours after the procedure. Following Day: - Return to full activity which may include returning to work/school. Diet Start your diet with liquids and light foods (jello, soup, juice, toast). Then eat your usual diet if not nauseated. Treatment For Common After Affects For mild abdominal pain, bloating, or excessive gas: - Rest - Eat lightly - Lie on right side Follow-Up Information Follow-up with Dr. Frye as scheduled Anesthesia Information What You Should Know You have had a procedure that required some medicine to reduce anxiety and discomfort. This treatment is called moderate sedation. After receiving the treatment, you may be sleepy, but you will be able to breathe on your own. The effects of the treatment may last for several hours. Follow these instructions along with Activity/Diet recommendations noted above: * Do NOT do anything where dizziness or clumsiness would be dangerous. * Rest quietly at home today, then you can be up and about tomorrow. * Have a responsible person stay with you the rest of today. * You may have had an I.V. today. If so, you may take the dressing off later today. Recommendations Call your doctor if: * Trouble breathing * Continuous vomiting for more than 24 hours * Temperature above 101 degrees * Severe abdominal pain or bloating * Pain not relieved by pain medicine ordered * There is increased drainage or redness from any incision * A large amount of rectal bleeding greater than 2-3 tablespoons. (If you had a polyp/s removed or have hemorrhoids, a small amount of blood - from the rectum is to be expected.) * You have any unanswered questions or concerns. IN THE EVENT OF A SERIOUS EMERGENCY, GO TO THE NEAREST EMERGENCY ROOM Your discharge instructions were prepared by provider Chuy Pena. Patient Instructions Signature Page Cody Ledezma Patient (or Guardian) Signature/Date: I have read and understand the instructions given to me by my caregivers. Caregiver/RN/Doctor Signature/Date: The above-named patient and/or guardian has received patient instructions on this date. + Original Patient Signature Page (only) stays with chart. Please make copy for patient.
--- NOTE | 2017-10-01 14:00 | GI REPORT ---
Patient Name: Cody Ledezma Procedure Date: 10/01/2017 1:20 PM Date of : 1940 Admit Type: Outpatient Age: 76 Gender: Male Attending MD: Chuy Pena MD Procedure: Upper GI endoscopy Providers: Chuy Pena MD Referring MD: Suzanne Frye M.d. Indications: Suspected gastro-esophageal reflux disease, Unexplained chest pain, Chest pain (non cardiac) Medicines: Propofol per Anesthesia Complications: No immediate complications. Estimated blood loss: None. Estimated Blood Loss: Estimated blood loss: none. Procedure: Pre-Anesthesia Assessment: - Prior to the procedure, a History and Physical was performed, and patient medications and allergies were reviewed. The patient's tolerance of previous anesthesia was also reviewed. The risks and benefits of the procedure and the sedation options and risks were discussed with the patient. All questions were answered, and informed consent was obtained. Prior Anticoagulants: The patient has taken no previous anticoagulant or antiplatelet agents. ASA Grade Assessment: III - A patient with severe systemic disease. After reviewing the risks and benefits, the patient was deemed in satisfactory condition to undergo the procedure. After obtaining informed consent, the endoscope was passed under direct vision. Throughout the procedure, the patient's blood pressure, pulse, and oxygen saturations were monitored continuously. The scope was introduced through the mouth, and advanced to the second part of duodenum. The upper GI endoscopy was accomplished without difficulty. The patient tolerated the procedure well. Findings: The examined esophagus was normal. A widely patent and non-obstructing Schatzki ring (acquired) was found at the gastroesophageal junction. A 5 cm hiatal hernia was found. The proximal extent of the gastric folds (end of tubular esophagus) was 35 cm from the incisors. The hiatal narrowing was 40 cm from the incisors. The Z-line was 35 cm from the incisors. Retained gastric contents are not identified on this exam. The examined duodenum was normal. The cardia and gastric fundus were normal on retroflexion. Impression: - Normal esophagus. - Widely patent and non-obstructing Schatzki ring. - 5 cm hiatal hernia. - Normal examined duodenum. - No specimens collected. Recommendation: - Discharge patient to home (ambulatory). - Advance diet as tolerated. - Continue present medications. - Return to referring physician as previously scheduled. MD Chuy Medrano MD 10/01/2017 1:59:49 PM This report has been signed electronically. Note Initiated On: 10/01/2017 1:20 PM Number of Addenda: 0 I attest to the content of the Intraoperative Record and orders documented therein, exceptions below {[id number]}
[2017-10-01 14:23] VITALS: BP 129/85; PULSE 87; O2SAT 94
--- NOTE | 2017-10-01 14:44 | Anesthesiology Progress Note ---
Anesthesia Post Op Note Date & Time Oct 01, 2017 at 14:44 Vital Signs Pain Intensity: 0 Vital Signs Past 12 Hours Date Time Temp Pulse Resp B/P (MAP) Pulse Ox O2 Delivery O2 Flow Rate FiO2 10/01/17 14:23 87 20 129/85 (100) 94 Room Air 10/01/17 14:06 93 18 124/82 (96) 96 Room Air 10/01/17 13:52 98 16 92/60 (71) 95 Room Air 10/01/17 12:22 36.4 92 20 109/72 (84) 95 Room Air Notes Mental Status: alert / awake / arousable, participated in evaluation Pt Amnestic to Procedure: Yes Nausea / Vomiting: adequately controlled Pain: adequately controlled Airway Patency, RR, SpO2: stable & adequate BP & HR: stable & adequate Hydration State: stable & adequate Anesthetic Complications: no major complications apparent
== END | disposition home or self-care (01) ==
LOC: C.GI 11:53
PROVIDERS: ATTEND Internal Medicine Gastroenterology
DX: K21.9 Gastro-esophageal reflux disease without esophagitis (principal); R07.89 Other chest pain; K44.9 Diaphragmatic hernia without obstruction or gangrene; K22.2 Esophageal obstruction; M19.90 Unspecified osteoarthritis, unspecified site; E78.00 Pure hypercholesterolemia, unspecified; M54.5 Low back pain; N40.0 Benign prostatic hyperplasia without lower urinary tract symptoms; E66.9 Obesity, unspecified; Z79.82 Long term (current) use of aspirin; Z79.899 Other long term (current) drug therapy; Z85.46 Personal history of malignant neoplasm of prostate

== ENCOUNTER → 2017-12-31 | Outpatient (CLI) | payer OTHER ==
[~2017-12-31] MED LIST changes: -SODIUM CHLORIDE 0.9% 500ML 500 ML IV ONE
[2017-12-31 12:09] LABS: BASO % 0.3 %; BASO ABS # 0.02 K/uL (0-0.2); EOS % 2.7 %; EOS ABS # 0.19 K/uL (0-0.5); HEMOGLOBIN 14.6 g/dL (14.0-18.0); IG# 0.06 K/uL (0.00-0.02); LYMPH % 15.7 %; MEAN CELL VOLUME 91.3 fL (80-100); MEAN CORPUSCULAR HEMOGLOBIN 31.7 pg (25-34); MEAN CORPUSCULAR HGB CONC 34.8 g/dl (32-36); MEAN PLATELET VOLUME 9.5 fL (7.4-10.4); MONO ABS # 0.63 K/uL (0.11-0.59); NEUT % 71.4 %; NEUT ABS # 4.99 K/uL (1.4-6.5); PLATELET COUNT 256 K/uL (130-400); RED CELL DISTRIBUTION WIDTH CV 14.4 % (11.5-14.5); RED CELL DISTRIBUTION WIDTH SD 47.7 fL (36.4-46.3); WHITE BLOOD COUNT 6.99 K/uL (4.8-10.8)
[2017-12-31 12:24] LABS: ALBUMIN 3.9 gm/dl (3.4-5.0); BLOOD UREA NITROGEN 17 mg/dl (7-18); CALCIUM 8.8 mg/dl (8.5-10.1); CARBON DIOXIDE 22 mmol/L (21-32); CREATININE 1.04 mg/dl (0.60-1.40); GLUCOSE 116 mg/dl (70-99); POTASSIUM 3.8 mmol/L (3.5-5.1); SODIUM 134 mmol/L (136-145); TOTAL PROTEIN 7.4 gm/dl (6.4-8.2)
[2017-12-31 12:25] LABS: ALKALINE PHOSPHATASE 76 U/L (45-117); ALT/SGPT 41 U/L (12-78); AST/SGOT 24 U/L (15-37)
== END | disposition home or self-care (01) ==
LOC: C.LAB1850 09:56
PROVIDERS: ATTEND Internal Medicine Infectious Disease
DX: G06.1 Intraspinal abscess and granuloma (principal)

== ENCOUNTER 2020-02-23 10:08 | Observation (INO) ==
[2020-02-23] MEDS ORDERED: PANTOprazole 80 MG in DEXTROSE 5% 100 ML IV ONE (10:29)
[2020-02-23] MEDS ORDERED: PANTOPRAZOLE BOLUS/DRIP 1 EA IV STA (10:29)
[2020-02-23] MEDS ORDERED: FAMOTIDINE 20MG/5ML IV PUSH IV STA (10:29)
[2020-02-23] MEDS ORDERED: ONDANSETRON INJ 2 MG/ML 2 ML VIAL IV STA (10:29)
[2020-02-23] MEDS ORDERED: SODIUM CHLORIDE 0.9% 500 ML IV SCH (10:30)
[2020-02-23 10:57] LABS: Basophils # (auto) 0.04 K/uL (0-0.2); Basophils % (auto) 0.5 %; Eosinophils # (auto) 0.29 K/uL (0-0.5); Eosinophils % (auto) 3.6 %; Hematocrit (blood only) 45.2 % (42-52); Hemoglobin 15.8 g/dL (14.0-18.0); Immature Granulocytes # (auto) 0.03 K/uL (0.00-0.02); Immature Granulocytes % (auto) 0.4 %; Lymphocytes # (auto) 1.14 K/uL (1.2-3.4); Mean Corpuscular Hemoglobin 32.7 pg (25-34); Mean Corpuscular Volume 93.6 fL (80-100); Mean Platelet Volume 9.1 fL (7.4-10.4); Monocytes # (auto) 0.75 K/uL (0.11-0.59); Monocytes % (auto) 9.2 %; Neutrophils # (auto) 5.88 K/uL (1.4-6.5); Neutrophils % (auto) 72.3 %; Platelet Count 241 K/uL (130-400); RDW Coefficient of Variation 13.5 % (11.5-14.5); RDW Standard Deviation 46.3 fL (36.4-46.3); Red Blood Count 4.83 M/uL (4.7-6.1); White Blood Count 8.13 K/uL (4.8-10.8)
[2020-02-23] MEDS: HYDROmorphone INJ 0.5 MG/0.5 ML SYR IV PRN ×2 (11:08→12:52)
--- NOTE | 2020-02-23 11:08 | CT Scan Report ---
ABDOMEN AND PELVIS CT WITHOUT CONTRAST CT DOSE: 1673.19 mGy.cm HISTORY: Epigastric abdominal pain. TECHNIQUE: Multiaxial CT images of the abdomen and pelvis were performed without contrast. A dose lo wering technique was utilized adhering to the principles of ALARA. COMPARISON STUDY: Abdomen and pelvis CT 12/13/2018. FINDINGS: The lung bases are clear. No pneumoperitoneum. No pneumatosis. Extensive thoracolumbar spin al posterior fusion. Spinal electrodes are also noted. The tip is not included on this study. Small h iatus hernia. Suggestion of minimal inflammatory change near the duodenal bulb. This has slightly pro gressed in the interval. No perforation identified. The unenhanced pancreas, liver, gallbladder, sple en, and adrenal glands are within normal limits. Mild bilateral cortical renal scarring, unchanged. T here is a 4 mm stone within the lower pole the right kidney. No left renal calculi. No ureteral calcu li. No hydronephrosis. The bladder is not well-distended but appears unremarkable. No pelvic free flu id. Small fat-containing bilateral inguinal hernias. Stable 5.4 cm cyst within the lower pole of the left kidney. Additional bilateral renal hypodense lesions are not well visualized on this noncontrast study. There is a left circumaortic renal vein. No retroperitoneal lymphadenopathy. A few colonic di verticula. No evidence for diverticulitis. The appendix is not identified and appear surgically absen t. IMPRESSION: 1. Slight progression of the inflammatory stranding adjacent to the duodenal bulb. This is nonspecifi c and could be due to peptic ulcer disease, a duodenitis, or less likely a groove pancreatitis. Follo w-up endoscopy should be considered for further evaluation. No perforation identified. 2. Small hiatus hernia. 3. Prior appendectomy. 4. Colonic diverticulosis. No evidence for acute diverticulitis. 5. Right-sided nephrolithiasis. No hydronephrosis. 6. Additional stable findings as described above. ACT 112: Negative or not required by law. Electronically signed by: Marc Beatty M.D. 02/23/2020 11:07 AM
--- NOTE | 2020-02-23 11:16 | Emergency Department Note ---
Impression & Plan Abdominal pain, acute, epigastric, NSAID overdose, Peptic ulcer disease ED Provider Note INFORMANT: Patient ED PROVIDER(S): Konstantin Canseco MD CHIEF COMPLAINT: Epigastric abdominal pain PLAN: Disposition: Admitted Condition: Good MEDICAL DECISION MAKING: Patient presented complaining of epigastric abdominal pain. He had significant amount of NSAIDs, which would actually constitute an accidental overdose. Given his tenderness on examination and tachycardia I was concerned about significant peptic ulcer disease/gastritis. He had an IV established. He was hydrated. He was given Protonix and Pepcid. Protonix bolus was administered as well as a drip. He had an unremarkable CBC. No significant anemia or leukocytosis. Chemistry panel, LFTs and lipase were unremarkable. CT imaging reveals findings consistent with peptic ulcer disease. Duodenitis is also a possibility. Given the NSAID use and his history I suspect this is peptic ulcer disease. He did receive IV Dilaudid and Zofran for symptom control. On reassessment he was doing better. I did discuss the case with Dr. Pablo of gastroenterology. He felt the patient should be admitted given the scenario and have an urgent endoscopy. He may be able to get to it this afternoon depending upon the patient's status. Consultation was made with Dr. William of the hospitalist service. The patient was admitted for further management. Triage Nursing notes reviewed and agree them. Additional history obtained from patient's . Vital Signs: reviewed and remarkable for tachycardia Differential diagnosis: PUD, pancreatitis, biliary pathology,Appendicitis, testicular torsion, infections, diverticulitis, UTI, obstruction, mesenteric ischemia, aortic pathology, inflammatory bowel disease, renal colic, hernia, volvulus, constipation, as well as other pathologies. Diagnostics interpreted by me: Cardiac Monitoring: Cardiac monitoring ordered by me: The patient was placed on continuous cardiac monitoring and observed. It revealed a sinus tachycardia at 102 beats per minute without ectopy or evidence of dysrhythmia. Imaging studies: CT scan of the abdomen pelvis is concerning for peptic ulcer disease versus duodenitis. I refer to the EMR for further details. Consultation(s): Gastroenterology, Dr. De Pablo [facility] service, Dr. William HPI: The patient is a 79 year old male who presents to the Emergency Room with c omplaints of epigastric abdominal pain. This started 2 days ago and is burning and sharp. The patient also notes the following associated symptoms, none. Patient states that he has chronic pain in his right knee and has been taking around 12 Aleve tablets a day for many weeks. He also has a history of ulcers and stopped taking his ulcer medication. The patient has found no relieving factors. Current pain is rated as 8/10. Pt denies LOC, headache, fevers, chills, diaphoresis, visual changes, neck pain, chest pain, breathing difficulties, nausea, vomiting, back pain, melena, hematochezia, urinary symptoms, numbness, weakness, lymphadenopathy, rash, or other complaints. ROS: See above HPI for pertinent positives & negatives. A total of 10 systems reviewed and were otherwise negative. PAST MEDICAL HISTORY:See Below, spinal epidural abscess, prostate CA, appendicitis PAST SURGICAL HISTORY:See Below, appendectomy, spinal fusion FAMILY HISTORY:See Below SOCIAL HISTORY:See Below, HOME MEDICATIONS:See Below ALLERGIES:See Below VITALS:See Below PHYSICAL EXAMINATION: GENERAL: Awake, alert, well-appearing, in no distress HENT: Normocephalic, atraumatic. Oropharynx unremarkable. EYES: Normal conjunctiva. Sclera non-icteric. NECK: Inspection normal. Non-tender. Supple. No nuchal rigidity. FROM. No masses. RESPIRATORY: Clear to auscultation. No wheezes. No rales. Normal respiratory effort. CARDIAC: Tachycardic rate. Normal rhythm. No murmurs. No rubs. Extremities warm and well perfused. Pulses equal. No JVD. GI: Soft, non-distended. Moderate epigastric tenderness to palpation. No rebound or guarding. No masses. RECTAL: Deferred. MUSCULOSKELETAL: Atraumatic. Chest examination reveals no tenderness. The back is symmetrical on inspection without obvious abnormality. There is no CVA tenderness to palpation. No joint edema. LOWER EXTREMITIES: Calves are equal size bilaterally and non-tender. No edema. Chronic venous discoloration. NEURO: Normal sensorium. No sensory or motor deficits noted. SKIN: No rash or jaundice noted. Konstantin Canseco MD Past Med/Surg History Medical History (Updated 02/23/20 @ 11:30 by Konstantin Canseco MD) Chronic back pain History of hypertension History of prostate cancer s/p radiation 15 years ago Osteoarthritis Post-operative infection after back surgery 5 years ago - required picc line and iv abx x 8 weeks. now on daily abx (pt unsure of type of infection) Spinal stenosis Surgical History (System 12/23/19 @ 11:03 by Rosario Simpson) History of ankle surgery Rt History of appendectomy History of back surgery x 2; hardware present History of cataract surgery History of colonoscopy History of detached retina repair x 2 History of esophagogastroduodenoscopy (EGD) History of knee replacement History of prostate biopsy History of repair of rotator cuff Lt History of surgery I&D of shoulder abscess S/P insertion of spinal cord stimulator Social History (System 12/23/19 @ 11:03 by Rosario Simpson) Smoking Status: Never smoker Second Hand Exposure: No; Hx Alcohol Use: Yes Alcohol type: hard liquor Hx Substance Use: No Preferred Language: Vincentian Communication Ability: Effective 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 Beliefs That Will Affect Care: None Current Living Situation: Spouse Feels Safe at Home: Yes Allergies Allergies Allergy/AdvReac Type Severity Reaction Status Date / Time No Known Allergies Allergy ` Verified 02/23/20 11:34 Home Meds Home Medications Medication Instructions Recorded Confirmed multivitamin 1 tab PO QAM 11/19/18 02/23/20 coenzyme Q10 50 mg capsule 50 mg PO BID cap 06/23/19 02/23/20 amoxicillin-pot clavulanate 1 tab PO BID 10/20/19 02/23/20 [Augmentin] losartan [Cozaar] 25 mg PO QAM 10/20/19 02/23/20 spironolactone [Aldactone] 50 mg PO BID 10/20/19 02/23/20 sulfamethoxazole-trimethoprim 1 tab PO BID 10/20/19 02/23/20 [Bactrim DS] duloxetine 30 mg PO DAILY 02/23/20 02/23/20 mometasone 1 applic TOPICAL DAILY PRN 02/23/20 02/23/20 Results & Data (ED) Vital Signs Vital Signs - 24 hr 02/23/20 10:15 Temperature 36.6 C Temperature Source Oral Pulse Rate 106 H Respiratory Rate 18 Respiratory Effort / Characteristics Non-Labored Spontaneous Respiratory Depth Normal Blood Pressure 140/83 Blood Pressure Mean 102 Blood Pressure Position Sitting Pulse Oximetry 97 Oxygen Delivery Method Room Air Sepsis Recent Fever Within 48 Hours No Sepsis New/Unexplained Change in Mental Status N/A Sepsis Action Taken by Nursing No Action Required Laboratory Data Result diagrams: 02/23/20 10:40 02/23/20 10:40 Lab Results 02/23/20 02/23/20 Range/Units 10:40 10:40 WBC 8.13 (4.8-10.8) K/uL RBC 4.83 (4.7-6.1) M/uL Hgb 15.8 (14.0-18.0) g/dL Hct 45.2 (42-52) % MCV 93.6 (80-100) fL MCH 32.7 (25-34) pg MCHC 35.0 (32-36) g/dL RDW Std Deviation 46.3 (36.4-46.3) fL RDW Coeff of Delmer 13.5 (11.5-14.5) % Plt Count 241 (130-400) K/uL MPV 9.1 (7.4-10.4) fL Immature Gran % (Auto) 0.4 % Neut % (Auto) 72.3 % Lymph % (Auto) 14.0 % Isabella % (Auto) 9.2 % Eos % (Auto) 3.6 % Baso % (Auto) 0.5 % Neut # (Auto) 5.88 (1.4-6.5) K/uL Lymph # (Auto) 1.14 L (1.2-3.4) K/uL Isabella # (Auto) 0.75 H (0.11-0.59) K/uL Eos # (Auto) 0.29 (0-0.5) K/uL Baso # (Auto) 0.04 (0-0.2) K/uL Immature Gran # (Auto) 0.03 H (0.00-0.02) K/uL Sodium 136 (136-145) mmol/L Potassium 4.0 (3.5-5.1) mmol/L Chloride 103 (98-107) mmol/L Carbon Dioxide 26 (21-32) mmol/L Anion Gap 7.0 (3-11) BUN 13 (7-18) mg/dl Creatinine 1.22 (0.6-1.4) mg/dl Est Cr Clr Drug Dosing 65.7 ml/min Est GFR ( Amer) 65.9 Est GFR (Non-Af Amer) 56.8 BUN/Creatinine Ratio 11.0 (10-20) Glucose 126 H (70-99) mg/dl Calcium 9.2 (8.5-10.1) mg/dl Total Bilirubin 0.8 (0.2-1) mg/dl AST 17 (15-37) U/L ALT 28 (12-78) U/L Alkaline Phosphatase 83 (45-117) U/L Total Protein 7.4 (6.4-8.2) gm/dl Albumin 3.9 (3.4-5.0) gm/dl Globulin 3.5 (2.5-4.0) gm/dl Albumin/Globulin Ratio 1.1 (0.9-2) Lipase 142 (73-393) U/L Administered Medications Hydromorphone HCl (Hydromorphone Inj 0.5 Mg/0.5 Ml Syr) 0.5 mg IV Q15M PRN PRN Reason: Pain Stop: 03/08/20 10:28 Last Admin: 02/23/20 12:52 Dose: 0.5 mg Documented by: [id number] Admin: 02/23/20 11:08 Dose: 0.5 mg Documented by: [id number] Pantoprazole Sodium 40 mg/ (Dextrose) 100 mls @ 20 mls/hr IV Q5H JUAN Stop: 03/24/20 10:44 Last Admin: 02/23/20 12:52 Dose: 8 mg/hr, 20 mls/hr Documented by: [id number] Discontinued Medications Famotidine (Famotidine 20mg/5ml Iv Push) 20 mg IV ONE STA Stop: 02/23/20 10:30 Last Admin: 02/23/20 11:07 Dose: 20 mg Documented by: [id number] Sodium Chloride (Nss) 500 mls @ 999 mls/hr IV .Q31M JUAN Stop: 02/23/20 11:00 Last Infusion: 02/23/20 11:43 Dose: 0 mls/hr Documented by: [id number] Admin: 02/23/20 11:08 Dose: 999 mls/hr Documented by: [id number] Pantoprazole Sodium (Protonix Bolus/Drip) 0 mls @ 1 mls/hr IV ONE STA Stop: 02/23/20 10:30 Last Infusion: 02/23/20 11:45 Dose: 0 mls/hr Documented by: [id number] Admin: 02/23/20 11:08 Dose: 1 mls/hr Documented by: [id number] Pantoprazole Sodium 80 mg/ (Dextrose) 120 mls @ 400 mls/hr IV NOW ONE Stop: 02/23/20 10:46 Last Infusion: 02/23/20 11:43 Dose: 0 mls/hr Documented by: [id number] Admin: 02/23/20 11:07 Dose: 400 mls/hr Documented by: [id number] Ondansetron HCl (Ondansetron Inj 2 Mg/Ml 2 Ml Vial) 4 mg IV NOW STA Stop: 02/23/20 10:30 Last Admin: 02/23/20 11:08 Dose: 4 mg Documented by: [id number] Discharge Plan Visit Data Chief Complaint: Abdominal Pain Stated Complaint: UPPER ABD PAIN ED Provider: Konstantin Canseco Discharge Problem: Abdominal pain, acute, epigastric, NSAID overdose, Peptic ulcer disease Forms Stand Alone Forms: [facility] Prescriptions Prescriptions: No Action coenzyme Q10 [Co Q-10] 50 mg capsule 50 mg PO BID RF: 0 multivitamin Tablet 1 tab PO QAM RF: 0 losartan [Cozaar] 25 mg tablet 25 mg PO QAM RF: 0 spironolactone [Aldactone] 50 mg tablet 50 mg PO BID RF: 0 sulfamethoxazole-trimethoprim [Bactrim DS] 800-160 mg tablet 1 tab PO BID RF: 0 amoxicillin-pot clavulanate [Augmentin] 875-125 mg tablet 1 tab PO BID RF: 0 mometasone 0.1 % Cream 1 applic TOPICAL DAILY PRN (Reason: Rash) RF: 0 duloxetine 30 mg capsule,delayed release(DR/EC) 30 mg PO DAILY RF: 0
[2020-02-23 11:20] LABS: Albumin Level 3.9 gm/dl (3.4-5.0); Calcium 9.2 mg/dl (8.5-10.1); Creatinine Clr Calc Pharmacy 65.7 ml/min; Est GFR (African American) 65.9; Est GFR (Non-African American) 56.8
[2020-02-23 11:23] LABS: Albumin Globulin Ratio 1.1 (0.9-2); Bilirubin,Total 0.8 mg/dl (0.2-1); Globulin 3.5 gm/dl (2.5-4.0); Total Protein 7.4 gm/dl (6.4-8.2)
[2020-02-23] MEDS: PANTOprazole 40 MG in DEXTROSE 5% 100 ML IV SCH ×3 (12:52→20:10)
--- NOTE | 2020-02-23 13:35 | Gastrointestinal Consultation ---
Date of Consultation February 23, 2020 Assessment & Plan (1) Abdominal pain, acute, epigastric: (2) NSAID overdose: (3) Peptic ulcer disease: Will obtain EGD today due to abnormal CT A/P and history of gastric ulcer. Labs are stable. Maintain NPO. Patient last ate prior to 2100 02/22/2020 and had 1/2 glass of orange juice this morning at 0900. Continue Protonix IV drip. Spoke to hospitalist who is aware of plan. Please refer to supervising physician addendum for further recommendations. History of Present Illness History of Present Illness The patient is a pleasant 79-year-old male with past medical history of obstructive sleep apnea, hypertension, morbid obesity, osteoarthritis, chronic back pain, spinal stenosis, blindness in right eye, history of prostate cancer is post radiation 15 years ago who presented to the emergency department today with a 2 to 3-day history of epigastric pain. CT of the abdomen pelvis was obtained without contrast which demonstrated slight progression of the inflamm atory stranding adjacent to the duodenal bulb. Patient subsequently admitted and GI consult placed. On exam/interview today, the patient reports that he has had epigastric pain that is been severe for the last 2 to 3 days. States he was unable to relieve pain with persistent changes. Denies any nausea or vomiting. He does report decreased appetite over the last several weeks. Denies any diarrhea. Denies rectal bleeding or blood in stools including black tarry stools or bright/dark red blood in stools. Rates pain a 7 out of 10 and is being medicated for the pain during our conversation. Reports pain is burning and sharp. Reports he has history of gastric ulcer and stopped taking his PPI sometime ago due to how many medications he was on. Reports bowel movement daily that is soft, formed, and easy to pass. He reports he last had a 1/2 glass of juice with his pills this morning at 9 AM. Reports he last had food prior to 9 PM yesterday. He does report use of Aleve taking as many as 12 tablets/day for the last several weeks due to knee pain. He denies headache, fever, chills, night sweats, diaphoresis, neck pain, chest pain, breathing difficulties. 12/24/2018: EGD performed by Dr. Peña due to abdominal pain and abnormal CT of GI tract demonstrated moderate Schatzki ring which was dilated, medium-sized hiatal hernia, gastritis biopsied, and normal examined duodenum The patient is and lives with his . He is retired. 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 He has no history of smoking. He denies any drug use including marijuana. He reports that he consumes alcohol approximately 1 time per week. Allergies Allergy/AdvReac Type Severity Reaction Status Date / Time No Known Allergies Allergy ` Verified 02/23/20 11:34 Home Medications Home Medications Medication Instructions Recorded Confirmed Type multivitamin 1 tab PO QAM 11/19/18 02/23/20 History coenzyme Q10 50 mg capsule 50 mg PO BID cap 06/23/19 02/23/20 History amoxicillin-pot clavulanate 1 tab PO BID 10/20/19 02/23/20 History [Augmentin] losartan [Cozaar] 25 mg PO QAM 10/20/19 02/23/20 History spironolactone [Aldactone] 50 mg PO BID 10/20/19 02/23/20 History sulfamethoxazole-trimethoprim 1 tab PO BID 10/20/19 02/23/20 History [Bactrim DS] duloxetine 30 mg PO DAILY 02/23/20 02/23/20 History mometasone 1 applic TOPICAL DAILY PRN 02/23/20 02/23/20 History Patient History Medical History (Updated 02/23/20 @ 11:30 by Konstantin Canseco MD) Chronic back pain History of hypertension History of prostate cancer s/p radiation 15 years ago Osteoarthritis Post-operative infection after back surgery 5 years ago - required picc line and iv abx x 8 weeks. now on daily abx (pt unsure of type of infection) Spinal stenosis Surgical History (System 12/23/19 @ 11:03 by Rosario Simpson) History of ankle surgery Rt History of appendectomy History of back surgery x 2; hardware present History of cataract surgery History of colonoscopy History of detached retina repair x 2 History of esophagogastroduodenoscopy (EGD) History of knee replacement History of prostate biopsy History of repair of rotator cuff Lt History of surgery I&D of shoulder abscess S/P insertion of spinal cord stimulator Social History (System 12/23/19 @ 11:03 by Rosario Simpson) Smoking Status: Never smoker Second Hand Exposure: No; Hx Alcohol Use: Yes Alcohol type: hard liquor Hx Substance Use: No Preferred Language: Bhutanese Communication Ability: Effective Chemical Processor Required: No Beliefs That Will Affect Care: None Current Living Situation: Spouse Feels Safe at Home: Yes Review of Systems Review of Systems: All systems reviewed & are unremarkable except as noted in Subjective Physical Exam Constitutional: WD/WN, vitals as above + obese Eyes: blind in right eye ENMT: external ear and nose normal, oropharynx normal Neck: trachea midline, no thyromegaly Respiratory: normal respiratory effort, lungs clear to auscultation Cardiovascular: RRR, no murmur, no edema Gastrointestinal (Abdomen): Inspection/Auscultation: abdomen normal to inspection and normal bowel sounds Percussion/Palpation: + abdomen tender (epigastric tenderness) and abdomen soft Musculoskeletal: Extremities: extremities normal to inspection; no cyanosis and no clubbing Skin: no rashes, warm and dry Neurologic: PERRL, EOMI, accommodation nl, no face palsy, no dysarthria Psychiatric: Orientation: alert and oriented x 3 Results & Data ([facility]) Vital Signs (Past 12 Hours) Vital Signs Temp Pulse Resp BP Pulse Ox 02/23/20 10:15 36.6 C 106 H 18 140/83 97 Laboratory Results - last 24 hr 02/23/20 02/23/20 10:40 10:40 WBC 8.13 RBC 4.83 Hgb 15.8 Hct 45.2 MCV 93.6 MCH 32.7 MCHC 35.0 RDW Std Deviation 46.3 RDW Coeff of Delmer 13.5 Plt Count 241 MPV 9.1 Immature Gran % (Auto) 0.4 Neut % (Auto) 72.3 Lymph % (Auto) 14.0 Harlan % (Auto) 9.2 Eos % (Auto) 3.6 Baso % (Auto) 0.5 Neut # (Auto) 5.88 Lymph # (Auto) 1.14 L Harlan # (Auto) 0.75 H Eos # (Auto) 0.29 Baso # (Auto) 0.04 Immature Gran # (Auto) 0.03 H Sodium 136 Potassium 4.0 Chloride 103 Carbon Dioxide 26 Anion Gap 7.0 BUN 13 Creatinine 1.22 Est Cr Clr Drug Dosing 65.7 Est GFR ( Amer) 65.9 Est GFR (Non-Af Amer) 56.8 BUN/Creatinine Ratio 11.0 Glucose 126 H Calcium 9.2 Total Bilirubin 0.8 AST 17 ALT 28 Alkaline Phosphatase 83 Total Protein 7.4 Albumin 3.9 Globulin 3.5 Albumin/Globulin Ratio 1.1 Lipase 142 02/23/2020: CT A/P without contrast demonstrated 1. Slight progression of the inflammatory stranding adjacent to the duodenal bulb. This is nonspecific and could be due to peptic ulcer disease, a duodenitis, or less likely a groove pancreatitis. Follow-up endoscopy should be considered for further evaluation. No perforation identified. 2. Small hiatus hernia. 3. Prior appendectomy. 4. Colonic diverticulosis. No evidence for acute diverticulitis. 5. Right-sided nephrolithiasis. No hydronephrosis. 6. Additional stable findings as described above.
[2020-02-23] MEDS ORDERED: SODIUM CHLORIDE 0.9% 1000ML 1,000 ML IV STA (13:53)
--- NOTE | 2020-02-23 13:55 | Anesthesiology Consultation ---
Date of Service February 23, 2020 Assessment & Plan Chart Review Chart Review: Acceptable Risk for Surgery and Patient NOT seen in Pre Admission Testing Consults Requested none ASA [id number] Proposed Anesthesia Anesthesia Type: MAC Risk / Benefits Reviewed With: PT / POA / Parent / Guardian, Accepts Plan and Informed Consent Obtained History Surgery Operation Date: 02/23/20 16:00 Proposed Procedures p Esophagogastroduodenoscopy Dr Bev Pablo Height/Weight Height: 5 ft 10 in Weight: 119.6 kg Allergies Allergy/AdvReac Type Severity Reaction Status Date / Time No Known Allergies Allergy ` Verified 02/23/20 11:34 Medications Home Medications Medication Instructions Recorded Confirmed Last Taken multivitamin 1 tab PO QAM 11/19/18 02/23/20 02/23/20 coenzyme Q10 50 mg capsule 50 mg PO BID cap 06/23/19 02/23/20 02/23/20 amoxicillin-pot clavulanate 1 tab PO BID 10/20/19 02/23/20 02/23/20 [Augmentin] losartan [Cozaar] 25 mg PO QAM 10/20/19 02/23/20 10/20/19 spironolactone [Aldactone] 50 mg PO BID 10/20/19 02/23/20 02/23/20 sulfamethoxazole-trimethoprim 1 tab PO BID 10/20/19 02/23/20 02/23/20 [Bactrim DS] duloxetine 30 mg PO DAILY 02/23/20 02/23/20 02/23/20 mometasone 1 applic TOPICAL DAILY PRN 02/23/20 02/23/20 Unknown Active Medications Generic Name Dose Route Start Last Admin Trade Name Freq PRN Reason Stop Dose Admin Hydromorphone HCl 0.5 mg 02/23/20 10:29 02/23/20 12:52 Hydromorphone Inj 0.5 Mg/0.5 Ml Syr IV 03/08/20 10:28 0.5 mg Q15M PRN Administration Pain Pantoprazole Sodium 40 mg/ 100 mls @ 20 mls/hr 02/23/20 10:45 02/23/20 12:52 Dextrose IV 03/24/20 10:44 8 mg/hr Q5H JUAN 20 mls/hr Administration 8 MG/HR NPO Date Last Intake of Fluids: 02/23/20 Time Last Intake of Fluids: 08:30 Date Last Intake of Solids: 02/22/20 Time Last Intake of Solids: 21:30 Past Medical History Medical History Chronic back pain History of hypertension History of prostate cancer s/p radiation 15 years ago Osteoarthritis Post-operative infection after back surgery 5 years ago - required picc line and iv abx x 8 weeks. now on daily abx (pt unsure of type of infection) Spinal stenosis Exercise / Class Metabolic Activity III < 4 Walking/Shop/Light housework Negative for chest pain - positive for SOB Patient denies active symptoms of GERD. Past Surgical History Surgical History History of ankle surgery Rt History of appendectomy History of back surgery x 2; hardware present History of cataract surgery History of colonoscopy History of detached retina repair x 2 History of esophagogastroduodenoscopy (EGD) History of knee replacement History of prostate biopsy History of repair of rotator cuff Lt History of surgery I&D of shoulder abscess S/P insertion of spinal cord stimulator Past Anesthesia History No Hx of Anesthesia Complications History of PONV No Hx of PONV Social History Smoking Status: Never smoker Hx Alcohol Use: Yes Alcohol type: hard liquor alcohol intake frequency: a few times a week Hx Substance Use: No substance use type: does not use Physical Exam Vital Signs Last Vital Signs Temp 36.6 C 02/23/20 10:15 Pulse 106 H 02/23/20 10:15 Resp 18 02/23/20 10:15 BP 140/83 02/23/20 10:15 Pulse Ox 97 02/23/20 10:15 Constitutional + obese ENMT Mouth: no TMJ abnormality and oral opening not small Thyromental Distance: < 3.5 Finger Breadths Mallampati Class: I Mouth / Teeth: 1. chip 2. chip Neck normal visual inspection and + facial hair; neck extension not limited Respiratory normal respiratory effort Auscultation: lungs clear to auscultation bilaterally Cardiovascular Rate/Rhythm: regular rate and regular rhythm Heart Sounds: no murmur Neurologic moves all extremities Motor/Sensory: + sensory deficit (legs with neuropathy) Psychiatric Orientation: alert and oriented x 3 Testing Laboratory Results 02/23/20 10:40 02/23/20 10:40 Urine Color Yellow 02/23/20 13:30 Urine Appearance Cloudy (Clear) A 02/23/20 13:30 Urine pH 5.5 (4.5-7.5) 02/23/20 13:30 Ur Specific [place] 1.024 (1.000-1.030) 02/23/20 13:30 Urine Protein Negative (Negative) 02/23/20 13:30 Urine Glucose (UA) Negative (Negative) 02/23/20 13:30 Urine Ketones Negative (Negative) 02/23/20 13:30 Urine Nitrite Negative (Negative) 02/23/20 13:30 Ur Leukocyte Esterase Negative (Negative) 02/23/20 13:30 Urine WBC (Auto) 1-5 /hpf (0-5) 02/23/20 13:30 Urine RBC (Auto) 5-10 /hpf (0-4) H 02/23/20 13:30 U Hyaline Cast (Auto) 1-5 /lpf (0-5) 02/23/20 13:30 U Epithel Cells (Auto) 10-20 /lpf (0-5) H 02/23/20 13:30 Urine Bacteria (Auto) Negative (Negative) 02/23/20 13:30 Electrocardiogram Date: 02/23/20 Findings: + NSR @ (89) 1st degree AV block Other Testing Chest X-Ray Date: 12/13/18 IMPRESSION: 1. No acute cardiopulmonary findings. 2. Low lung volumes. No significant change in appearance of the chest. Stress Test Date: 08/18/17 Type: DSE Negative Dobutamine sress echo for ischemia at 103% and % MPHR Negative dobutamine ECG for ischemia at 10#% MPHR Appropriate BP response. Nonsustained atrial tachycardia and brief run of atrial fibrillation on peak dose of dobutamine and with atropine administration. Atrial arrhythmia spontaneously converted to sinus. No chest pain reported. Technically difficult, enhanced with IV definity. ECHO: Normal LV size and systolic function. EF 60-65%. No regional wall motion abnormalities. Severe, asymmetric hypertrophy of the septal base. Moderate left atrial dilation. Mild mitral regurgitation.
[2020-02-23 14:29] LABS: Appearance Urine Cloudy (Clear); Bacteria Urine Automated Negative (Negative); Bilirubin Urine Negative (Negative); Blood Urine Negative (Negative); Color Urine Yellow; Glucose Urine UA Negative (Negative); Ketones Urine Negative (Negative); Leukocyte Esterase Urine Negative (Negative); Nitrite Urine Negative (Negative); Protein Urine Negative (Negative); Specific Gravity Urine 1.024 (1.000-1.030); Urobilinogen Urine Negative (Negative); pH Urine 5.5 (4.5-7.5)
--- NOTE | 2020-02-23 14:30 | History & Physical Report ---
Date of Service February 23, 2020 Assessment & Plan (1) Abdominal pain, acute, epigastric: Suspected peptic ulcer disease. Continue Protonix drip. Consult gastroenterology. Discussed with Avani JACOME - patient for EGD today. N.p.o. with IV fluids pending EGD. (2) NSAID overdose: Stop NSAIDs. If he is to go on these in the future he will likely need a PPI at the same time. (3) Peptic ulcer disease: Prior history of this. Suspected etiology of above abdominal pain. Treatment as above. (4) History of DVT (deep vein thrombosis): SCDs, Avoid chemical prophylaxis at present time pending EGD results (5) Hypertension: Continue losartan 25mg PO daily. Hold spironolactone pending BP measurements in AM (unclear how much he is taking of this ?once daily). (6) Postoperative pain: Continue duloxetine 30mg PO daily if able to have a diet after EGD (7) Infection of lumbar spine: Continue chronic antibiotic prophylaxis with Augmentin and Bactrim if able to have a diet after EGD History of Present Illness Chief Complaint: Epigastric pain Primary Care Provider: Brinda Frye Cody Ledezma is a 79 year old male with a remote history of peptic ulcer disease related to stress who presents to the ER with 3 days of epigastric pain. Initially pain was mild but he started taking Aleve for the pain up to 12 220mg tablets a day. Pain progressed to its maximum today with 8/10 pain. Burning and sharp in epigastric area. No radiation. No relieving factors at home. Worse when he eats and has dramatically reduced appetite for the past 2 days. In the ER he was given famotidine, 500ml IV NSS, Dilaudid and pantoprazole IV drip - with his pain now down to 2/10. CT demonstrated slight progression of the inflammatory stranding next to the duodenal bulb. Due to concern of a possible pending perforation he will be taken for EGD today. Of note he takes chronic antibiotics prophylaxis with Augmentin and Bactrim after a back surgery with postoperative infection. Allergies Allergy/AdvReac Type Severity Reaction Status Date / Time No Known Allergies Allergy ` Verified 02/23/20 11:34 Home Medications Home Medications Medication Instructions Recorded Confirmed Type multivitamin 1 tab PO QAM 11/19/18 02/23/20 History coenzyme Q10 50 mg capsule 50 mg PO BID cap 06/23/19 02/23/20 History amoxicillin-pot clavulanate 1 tab PO BID 10/20/19 02/23/20 History [Augmentin] losartan [Cozaar] 25 mg PO QAM 10/20/19 02/23/20 History spironolactone [Aldactone] 50 mg PO BID 10/20/19 02/23/20 History sulfamethoxazole-trimethoprim 1 tab PO BID 10/20/19 02/23/20 History [Bactrim DS] duloxetine 30 mg PO DAILY 02/23/20 02/23/20 History mometasone 1 applic TOPICAL DAILY PRN 02/23/20 02/23/20 History Past Med/Surg History Medical History Chronic back pain History of hypertension History of prostate cancer s/p radiation 15 years ago Osteoarthritis Post-operative infection after back surgery 5 years ago - required picc line and iv abx x 8 weeks. now on daily abx (pt unsure of type of infection) Spinal stenosis Surgical History History of ankle surgery Rt History of appendectomy History of back surgery x 2; hardware present History of cataract surgery History of colonoscopy History of detached retina repair x 2 History of esophagogastroduodenoscopy (EGD) History of knee replacement History of prostate biopsy History of repair of rotator cuff Lt History of surgery I&D of shoulder abscess S/P insertion of spinal cord stimulator Social History Smoking Status: Never smoker Second Hand Exposure: No; Hx Alcohol Use: Yes Alcohol type: hard liquor Hx Substance Use: No Preferred Language: Slovak Communication Ability: Effective Search Specialist Required: No Beliefs That Will Affect Care: None Current Living Situation: Spouse Other Information That Helps Us Care for You: No Feels Safe at Home: Yes Safety Concerns: Feels Safe At This Time Review of Systems Review of Systems: All systems reviewed & are unremarkable except as noted in HPI & below Physical Exam Constitutional: well developed, well nourished and + obese; no acute distress Eyes: + anicteric sclerae Blind in right eye ENMT: external ear and nose normal, oropharynx normal Neck: trachea midline, no thyromegaly Respiratory: normal respiratory effort, lungs clear to auscultation Cardiovascular: Rate/Rhythm: regular rate and regular rhythm Gastrointestinal (Abdomen): Inspection/Auscultation: abdomen normal to inspection and + hypoactive bowel sounds; abdomen not distended Percussion/Palpation: + abdomen tender (epigastric), + guarding and abdomen soft; abdomen not rigid Musculoskeletal: no cyanosis or clubbing, extremities motor strength 5/5 Skin: no rashes, warm and dry Neurologic: moves all extremities and awake; not confused Psychiatric: A+Ox3, euthymic affect Genitourinary: no CVA tenderness Lymphatic: no cervical or axillary lymphadenopathy Results & Data Results & Data ([facility]) Vital Signs (Past 12 Hours) Vital Signs Temp Pulse Resp BP Pulse Ox 02/23/20 10:15 36.6 C 106 H 18 140/83 97 Diagnostic Findings ABDOMEN AND PELVIS CT WITHOUT CONTRAST IMPRESSION: 1. Slight progression of the inflammatory stranding adjacent to the duodenal bulb. This is nonspecific and could be due to peptic ulcer disease, a duodenitis, or less likely a groove pancreatitis. Follow-up endoscopy should be considered for further evaluation. No perforation identified. 2. Small hiatus hernia. 3. Prior appendectomy. 4. Colonic diverticulosis. No evidence for acute diverticulitis. 5. Right-sided nephrolithiasis. No hydronephrosis. 6. Additional stable findings as described above. ECG Indication: abdominal pain Rate (beats per minute): 89 Rhythm: normal sinus Findings: + 1st degree AV block Comparison ECG Date: from (12/13/2018) Change: no significant change Code Status & VTE Plan Code Status Full VTE Prophylaxis Plan VTE Prophylaxis will be ordered: Yes PG Care Time/CCT Total # of Minutes Spent Total Time Spent with Patient: Total time spent is greater than 50% in coordination of care (as documented) at patient's floor/unit and/or counseling patient: Coding Level of Care Code 96383 OBS Care - Level 3 Diagnoses Abdominal pain, acute, epigastric R10.13 NSAID overdose T39.391A Peptic ulcer disease K27.9 History of DVT (deep vein thrombosis) Z86.718 Hypertension I10 Postoperative pain G89.18 Infection of lumbar spine M86.9
--- NOTE | 2020-02-23 15:09 | History & Physical Report ---
Date of Service February 23, 2020 History of Present Illness Chief Complaint: Abd pAIN Primary Care Provider: Brinda Frye For EGD Allergies Allergy/AdvReac Type Severity Reaction Status Date / Time No Known Allergies Allergy ` Verified 02/23/20 11:34 Home Medications Home Medications Medication Instructions Recorded Confirmed Type multivitamin 1 tab PO QAM 11/19/18 02/23/20 History coenzyme Q10 50 mg capsule 50 mg PO BID cap 06/23/19 02/23/20 History amoxicillin-pot clavulanate 1 tab PO BID 10/20/19 02/23/20 History [Augmentin] losartan [Cozaar] 25 mg PO QAM 10/20/19 02/23/20 History spironolactone [Aldactone] 50 mg PO BID 10/20/19 02/23/20 History sulfamethoxazole-trimethoprim 1 tab PO BID 10/20/19 02/23/20 History [Bactrim DS] duloxetine 30 mg PO DAILY 02/23/20 02/23/20 History mometasone 1 applic TOPICAL DAILY PRN 02/23/20 02/23/20 History Past Med/Surg History Medical History Chronic back pain History of hypertension History of prostate cancer s/p radiation 15 years ago Osteoarthritis Post-operative infection after back surgery 5 years ago - required picc line and iv abx x 8 weeks. now on daily abx (pt unsure of type of infection) Spinal stenosis Surgical History History of ankle surgery Rt History of appendectomy History of back surgery x 2; hardware present History of cataract surgery History of colonoscopy History of detached retina repair x 2 History of esophagogastroduodenoscopy (EGD) History of knee replacement History of prostate biopsy History of repair of rotator cuff Lt History of surgery I&D of shoulder abscess S/P insertion of spinal cord stimulator Social History (System 12/23/19 @ 11:03 by Rosario Simpson) Smoking Status: Never smoker Second Hand Exposure: No; Hx Alcohol Use: Yes Alcohol type: hard liquor Hx Substance Use: No Preferred Language: Sami Communication Ability: Effective Candy Dipper Required: No Beliefs That Will Affect Care: None Current Living Situation: Spouse Feels Safe at Home: Yes Physical Exam Constitutional: + morbidly obese Respiratory: + labored breathing Cardiovascular: Rate/Rhythm: regular rate and regular rhythm Gastrointestinal (Abdomen): Percussion/Palpation: abdomen soft Results & Data ([facility]) Vital Signs (Past 12 Hours) Vital Signs Temp Pulse Resp BP Pulse Ox 02/23/20 10:15 36.6 C 106 H 18 140/83 97 Code Status & VTE Plan VTE Prophylaxis Plan VTE Prophylaxis will be ordered: Yes
[2020-02-23] MEDS ORDERED: LIDOCAINE HCL 2% 2 ML VIAL/AMP(20MG/ML) INFIL ONE (15:34)
[2020-02-23] MEDS ORDERED: PROPOFOL IV EMULSION 10 MG/ML 20 ML VIAL IV ONE (15:34)
--- NOTE | 2020-02-23 15:38 | GI REPORT ---
Patient Name: Cody Ledezma Procedure Date: 02/23/2020 3:13 PM Date of : 1940 Admit Type: Emergency Department Age: 79 Gender: Male Attending MD: De Pablo MD Procedure: Upper GI endoscopy Providers: De Pablo MD Referring MD: Suzanne Frye M.d. Indications: Epigastric abdominal pain Medicines: Propofol total dose 150 mg IV, Lidocaine 40 mg IV Complications: No immediate complications. Estimated Blood Loss: Estimated blood loss: none. Procedure: Pre-Anesthesia Assessment: - Prior to the procedure, a History and Physical was performed, and patient medications, allergies and sensitivities were reviewed. The patient's tolerance of previous anesthesia was reviewed. - The risks and benefits of the procedure and the sedation options and risks were discussed with the patient. All questions were answered and informed consent was obtained. After obtaining informed consent, the endoscope was passed under direct vision. Throughout the procedure, the patient's blood pressure, pulse, and oxygen saturations were monitored continuously. The Endoscope was introduced through the mouth, and advanced to the second part of duodenum. The upper GI endoscopy was accomplished without difficulty. The patient tolerated the procedure well. Findings: The Z-line was regular and was found 37 cm from the incisors. The examined esophagus was normal. The entire examined stomach was normal. One non-bleeding cratered duodenal ulcer with no stigmata of bleeding was found in the duodenal bulb. The lesion was 10 mm in largest dimension. Impression: - Z-line regular, 37 cm from the incisors. - Normal esophagus. - Normal stomach. - One non-bleeding duodenal ulcer with no stigmata of bleeding. - No specimens collected. Recommendation: - [facility]. De Pablo M.D. De Pablo MD 02/23/2020 3:37:36 PM This report has been signed electronically. Note Initiated On: 02/23/2020 3:13 PM Number of Addenda: 0 I attest to the content of the Intraoperative Record and orders documented therein, exceptions below {[id number]}
--- NOTE | 2020-02-23 15:47 | Consultation Report ---
DATE OF CONSULTATION: 02/23/2020 Addendum to the consult note by Avani Chance: I examined the patient and talked to him, he has been having epigastric pain since taking Aleve 12 days for his knee arthritis. It got severe enough that he presented to the Emergency Room and CT scan showed an abnormality in the duodenal bulb area. He has had a history of ulcers in the past. He has not been taking any gastric protective medication such as a PPI. The patient underwent an EGD today and was found to have a deep cratered ulcer 10 mm in diameter in the apex of the duodenal bulb with no stigmata of hemorrhage. IMPRESSION: The patient has a duodenal ulcer from nonsteroidals most likely. We will check stool for Helicobacter pylori, treat him with a proton pump inhibitor and bland diet.
--- NOTE | 2020-02-23 15:56 | Anesthesiology Progress Note ---
Date of Service February 23, 2020 Anesthesia Post Procedure Vital Signs Vital Signs: Temp Pulse Pulse Resp BP BP Pulse Ox 02/23/20 15:40 103 H 18 132/95 92 02/23/20 15:07 36.5 C 97 H 18 145/105 H 95 02/23/20 10:15 36.6 C 106 H 18 140/83 97 Transfer of Care Handoff Completed per policy Notes Mental Status: alert / awake / arousable and participated in evaluation Nausea / Vomiting: adequately controlled Pain: adequately controlled Airway Patency, RR, SpO2: stable & adequate BP & HR: stable & adequate Hydration State: stable & adequate Anesthetic Complications: no major complications apparent and Pt Satisfied with anesthetic care
[2020-02-23] MEDS: LACTATED RINGER'S 1,000 ML IV SCH ×2 (17:02→23:43)
[2020-02-23] MEDS ORDERED: MOMETASONE FUROATE 0.1% CR 15 GM TUBE EXT PRN (21:54)
[2020-02-23] MEDS ORDERED: HYDROmorphone INJ 0.5 MG/0.5 ML SYR IV PRN (21:54)
[2020-02-23] MEDS: AMOXICILLIN/CLAVULANATE 875 MG TAB PO SCH (22:36)
[2020-02-23] MEDS: SULFAMETHOXAZOLE/TRIMETHOPRIM DS 800/160MG TAB PO SCH (22:37)
--- NOTE | 2020-02-23 22:49 | Electrocardiogram Report ---
Test Reason : Blood Pressure : / mmHG Vent. Rate : 089 BPM Atrial Rate : 089 BPM P-R Int : 242 ms QRS Dur : 080 ms QT Int : 354 ms P-R-T Axes : 041 003 036 degrees QTc Int : 430 ms Sinus rhythm with 1st degree A-V block Otherwise normal ECG When compared with ECG of 13-DEC-2018 18:54, Criteria for Inferior infarct are no longer Present Confirmed by Bobby Isaac ([id number]) on 02/23/2020 10:48:39 PM Referred By: Brinda Frye Confirmed By:Bobby Isaac
[2020-02-24] MEDS: PANTOprazole 40 MG in DEXTROSE 5% 100 ML IV SCH ×2 (01:38→05:56)
[2020-02-24 05:46] LABS: Hematocrit (blood only) 42.2 % (42-52); Hemoglobin 14.3 g/dL (14.0-18.0); Mean Corpuscular Hemoglobin 31.6 pg (25-34); Mean Corpuscular Hgb Conc 33.9 g/dL (32-36); Mean Corpuscular Volume 93.2 fL (80-100); Mean Platelet Volume 9.2 fL (7.4-10.4); Platelet Count 221 K/uL (130-400); RDW Coefficient of Variation 13.6 % (11.5-14.5); RDW Standard Deviation 46.6 fL (36.4-46.3); Red Blood Count 4.53 M/uL (4.7-6.1); White Blood Count 8.39 K/uL (4.8-10.8)
[2020-02-24 06:15] LABS: BUN Creatinine Ratio 9.9 (10-20); Calcium 8.7 mg/dl (8.5-10.1); Creatinine Clr Calc Pharmacy 79.2 ml/min; Est GFR (African American) 82.8; Est GFR (Non-African American) 71.4; Potassium 3.9 mmol/L (3.5-5.1)
[2020-02-24] MEDS: SULFAMETHOXAZOLE/TRIMETHOPRIM DS 800/160MG TAB PO SCH (08:30)
[2020-02-24] MEDS: AMOXICILLIN/CLAVULANATE 875 MG TAB PO SCH (08:30)
--- NOTE | 2020-02-24 08:58 | Gastroenterology Progress Note ---
Date of Service February 24, 2020 Assessment & Plan (1) Duodenal bulb ulcer: Patient has had significant improvement. EGD demonstrated 1 non-bleeding crated duodenal ulcer in the duodenal bulb. Patient is tolerating po diet well. Will need to continue PPI at discharge. Will need GI OV follow-up in 2 weeks to arrange follow-up EGD - will contact patient with appointment. Please refer to supervising physician addendum for further recommendations. Admission and Anticipated Discharge Date Admission Date: February 23, 2020 Subjective Patient reports significant improvement this morning. Denies abdominal pain, nausea, vomiting. He is sitting upright at bedside eating regular breakfast. Reports he is passing flatus. Has not had bowel movement since admission. Verbalizes understanding that PPI will need to continue after discharge and appropriate dosing of NSAIDs. Review of Systems Review of Systems: All systems reviewed & are unremarkable except as noted in Subjective Physical Exam Constitutional: WD/WN, vitals as above + obese ENMT: Ears: no external ear abnormality Neck: normal visual inspection Respiratory: normal respiratory effort, lungs clear to auscultation Cardiovascular: RRR, no murmur, no edema Gastrointestinal (Abdomen): Inspection/Auscultation: abdomen normal to inspection and normal bowel sounds Percussion/Palpation: abdomen nontender Musculoskeletal: Extremities: extremities normal to inspection; no cyanosis and no clubbing Skin: no rashes, warm and dry Neurologic: PERRL, EOMI, accommodation nl, no face palsy, no dysarthria Psychiatric: Orientation: alert and oriented x 3 Results & Data ([facility]) Vital Signs (Past 12 Hours) Vital Signs Temp Pulse Resp BP Pulse Ox 02/24/20 07:57 36.5 C 88 16 145/90 H 92 02/23/20 23:36 36.6 C 90 18 128/76 94
[2020-02-24] MEDS ORDERED: NON-FORMULARY MEDICATION (Coenzyme Q10 [Co Q-10] 50 MG) PO SCH (09:00)
[2020-02-24] MEDS ORDERED: DULOXETINE HCL 30 MG CAP PO SCH (09:00)
[2020-02-24] MEDS ORDERED: PANTOprazole 40 MG TAB PO SCH (09:00)
[2020-02-24] MEDS ORDERED: LOSARTAN POTASSIUM 25 MG TAB PO SCH (09:00)
[2020-02-24] MEDS ORDERED: MULTIVITAMIN TAB PO SCH (09:00)
--- NOTE | 2020-02-24 18:07 | Discharge Summary ---
Date of Service February 24, 2020 Admission HPI Per Admitting Provider Cody Ledezma is a 79 year old male with a remote history of peptic ulcer disease related to stress who presents to the ER with 3 days of epigastric pain. Initially pain was mild but he started taking Aleve for the pain up to 12 220mg tablets a day. Pain progressed to its maximum today with 8/10 pain. Burning and sharp in epigastric area. No radiation. No relieving factors at home. Worse when he eats and has dramatically reduced appetite for the past 2 days. In the ER he was given famotidine, 500ml IV NSS, Dilaudid and pantoprazole IV drip - with his pain now down to 2/10. CT demonstrated slight progression of the inflammatory stranding next to the duodenal bulb. Due to concern of a possible pending perforation he will be taken for EGD today. Of note he takes chronic antibiotics prophylaxis with Augmentin and Bactrim after a back surgery with postoperative infection. Principal Diagnosis Duodenal ulcer Discharge Exam Constitutional WD/WN, vitals as above Eyes EOM intact bilaterally; no conjunctival abnormality ENMT external ear and nose normal, oropharynx normal Neck trachea midline, no thyromegaly normal visual inspection Respiratory normal respiratory effort, lungs clear to auscultation no respiratory distress Cardiovascular RRR, no murmur, no edema Gastrointestinal (Abdomen) Inspection/Auscultation: abdomen normal to inspection; abdomen not distended Musculoskeletal no cyanosis or clubbing, extremities motor strength 5/5 Skin no rashes, warm and dry Neurologic moves all extremities and awake Psychiatric Orientation: alert, oriented to person and cooperative Discharge Data Allergies Allergy/AdvReac Type Severity Reaction Status Date / Time No Known Allergies Allergy ` Verified 02/23/20 11:34 Consultations 02/23/20 11:38 ED Decision to Admit Stat 02/23/20 16:15 Consult Gastroenterology Routine Procedures Performed Operation Date: 02/23/20 16:00 Actual Procedures p Esophagogastroduodenoscopy - De Pablo Ordered Studies 02/23/20 10:29 CT abd pelvis wo con Stat Hospital Course (1) Abdominal pain, acute, epigastric: Suspected peptic ulcer disease. Continue Protonix drip. Consult gastroenterology. Discussed with Avani JACOME - patient for EGD today. - Duodenal ulcer found on EGD on 02/22. Non-bleeding. 1) PPI PO BID x 4 weeks. 2) NO NSAIDs 3) F/u with Dr. Pablo in 2 weeks. (2) NSAID overdose: Stop NSAIDs. If he is to go on these in the future he will likely need a PPI at the same time. (3) Peptic ulcer disease: Prior history of this. Suspected etiology of above abdominal pain. Treatment as above. (4) History of DVT (deep vein thrombosis): SCDs, Avoid chemical prophylaxis at present time pending EGD results (5) Hypertension: Continue losartan 25mg PO daily. Hold spironolactone pending BP measurements in AM (unclear how much he is taking of this ?once daily). 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 Pablo in 2 weeks in the office.) Brinda Frye [Primary Care Provider] - 02/27/20 1:30 pm Diet: Regular Addtl Attending Provider Instructions: You were admitted with stomach pain, found to be an ulcer in the first part of your small intestine. Luckily, it was not bleeding. Please see Dr. Pablo in 2 weeks in the office. You will need another scope (EGD) to make sure the area is healing. Please to NOT use any NSAID, including ibuprofen, naproxen, Motrin, etc. You can use Tylenol (acetaminophen) for pain as long as it is within the bottle recommendations. Please call Dr. Pablo's office with any further abdominal pain, dark/tarry stools, blood in the stool, or other concerns. Pending Studies at Discharge: No Stand-Alone Forms: [employer], Smoking Cessation Medications and DC Order Prescriptions: New pantoprazole 40 mg Tablet,Delayed Release (Dr/Ec) 40 mg PO BID Qty: 60 RF: 0 Continued coenzyme Q10 [Co Q-10] 50 mg capsule 50 mg PO BID RF: 0 multivitamin Tablet 1 tab PO QAM RF: 0 losartan [Cozaar] 25 mg tablet 25 mg PO QAM RF: 0 spironolactone [Aldactone] 50 mg tablet 50 mg PO BID RF: 0 sulfamethoxazole-trimethoprim [Bactrim DS] 800-160 mg tablet 1 tab PO BID RF: 0 amoxicillin-pot clavulanate [Augmentin] 875-125 mg tablet 1 tab PO BID RF: 0 mometasone 0.1 % Cream 1 applic TOPICAL DAILY PRN (Reason: Rash) RF: 0 duloxetine 30 mg capsule,delayed release(DR/EC) 30 mg PO DAILY RF: 0 Discharge Orders: Discharge Order (Routine); Ordered 02/24/20 Ordered By: Maico Xiao/Other Patient Handouts: Peptic Ulcer Admission Data Admit Date/Time: 02/23/20 15:01 Attending Provider: Maico Coyne Admit Provider: Cliff William Primary Care Provider: Brinda Frye Other Providers: De Pablo ; Maico Coyne Other Interventions: Discharge Summary Assessment (RN) Last Done: 02/24/20 11:19 Coding Level of Care Code 31011 OBS Care - Discharge Diagnoses Abdominal pain, acute, epigastric R10.13 NSAID overdose T39.391A Peptic ulcer disease K27.9 History of DVT (deep vein thrombosis) Z86.718 Hypertension I10 Postoperative pain G89.18 Infection of lumbar spine M86.9
== END 2020-02-24 13:06 | disposition home or self-care (01) ==
LOC: ED 10:08 → ENDO 15:00 → 3W 15:00 → SUATTDRO 15:01

== ENCOUNTER 2020-07-10 05:07 | Observation (INO) ==
--- NOTE | 2020-06-13 10:56 | PAT Medication Instructions ---
Medication Instructions Date of Service June 13, 2020 Home Medications coenzyme Q10 50 mg capsule 50 mg PO BID amoxicillin-pot clavulanate [Augmentin] 1 tab PO BID losartan [Cozaar] 25 mg PO BID spironolactone [Aldactone] 50 mg PO BID sulfamethoxazole-trimethoprim [Bactrim DS] 1 tab PO BID mometasone 1 applic TOPICAL DAILY PRN B.infantis-B.ani-B.long-B.bifi [Probiotic 4X] 1 tab PO QAM Continue as directed amoxicillin-pot clavulanate [Augmentin] 1 tab PO BID sulfamethoxazole-trimethoprim [Bactrim DS] 1 tab PO BID STOP taking 2 weeks before surgery (or as soon as possible if surgery is within 2 weeks) coenzyme Q10 50 mg capsule 50 mg PO BID STOP taking 24 hours before surgery mometasone 1 applic TOPICAL DAILY PRN DO NOT take the morning of surgery losartan [Cozaar] 25 mg PO BID spironolactone [Aldactone] 50 mg PO BID B.infantis-B.ani-B.long-B.bifi [Probiotic 4X] 1 tab PO QAM Take evening before surgery losartan [Cozaar] 25 mg PO BID spironolactone [Aldactone] 50 mg PO BID Other Notes If you have any questions please call us at [phone] or [phone] or [phone] or [phone]
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
[2020-06-14 11:14] LABS: Basophils # (auto) 0.02 K/uL (0-0.2); Basophils % (auto) 0.2 %; Eosinophils # (auto) 0.28 K/uL (0-0.5); Eosinophils % (auto) 3.1 %; Hematocrit (blood only) 40.2 % (42-52); Immature Granulocytes # (auto) 0.07 K/uL (0.00-0.02); Immature Granulocytes % (auto) 0.8 %; Lymphocytes # (auto) 1.18 K/uL (1.2-3.4); Lymphocytes % (auto) 13.1 %; Mean Corpuscular Hemoglobin 33.2 pg (25-34); Mean Corpuscular Hgb Conc 34.8 g/dL (32-36); Mean Corpuscular Volume 95.3 fL (80-100); Mean Platelet Volume 9.1 fL (7.4-10.4); Monocytes # (auto) 0.78 K/uL (0.11-0.59); Monocytes % (auto) 8.6 %; Neutrophils % (auto) 74.2 %; Platelet Count 256 K/uL (130-400); RDW Coefficient of Variation 13.8 % (11.5-14.5); RDW Standard Deviation 47.5 fL (36.4-46.3); Red Blood Count 4.22 M/uL (4.7-6.1); White Blood Count 9.03 K/uL (4.8-10.8)
[2020-06-14 11:22] LABS: Partial Thromboplastin Time 27.5 Seconds (21.0-31.0)
[2020-06-14 11:38] LABS: Albumin Level 3.7 gm/dl (3.4-5.0); BUN Creatinine Ratio 10.1 (10-20); Calcium 9.4 mg/dl (8.5-10.1); Creatinine Clr Calc Pharmacy 75.9 ml/min; Est GFR (African American) 77.2; Est GFR (Non-African American) 66.6; Potassium 3.6 mmol/L (3.5-5.1)
[2020-06-14 11:41] LABS: Bilirubin Direct 0.2 mg/dl (0-0.2); Bilirubin,Total 0.8 mg/dl (0.2-1); Total Protein 7.1 gm/dl (6.4-8.2)
[2020-07-10] MEDS ORDERED: TRANEXAMIC ACID 1,000 MG **IV Pre-op IV SCH (06:00)
[2020-07-10] MEDS ORDERED: ROPIVACAINE 0.5% HCL/PF 150 MG, BUPIVACAINE 0.75% MPF 20 ML, EPINEPHrine 0.15 MG, Ketor... INFIL SCH (06:00)
[2020-07-10] MEDS ORDERED: LR 60ML/HR IV SCH (06:00)
[2020-07-10] MEDS ORDERED: LR 500ML BOLUS, THEN 15ML/HR IV SCH (06:00)
[2020-07-10] MEDS ORDERED: TRANEXAMIC ACID 1,000 MG **IV Intra-op IV SCH (06:00)
[2020-07-10] MEDS ORDERED: CeleBREX 200 MG CAP PO SCH (06:00)
[2020-07-10] MEDS ORDERED: ceFAZolin 2000MG 2,000 MG/15 ML SYR IV SCH (06:00)
[2020-07-10] MEDS ORDERED: BUPIVACAINE 0.5 % 5 MG/1 ML PF 10ML VIAL ONE (06:20)
[2020-07-10] MEDS ORDERED: BUPIVACAINE 0.25% 30 ML VIAL ONE (06:20)
[2020-07-10] MEDS ORDERED: MIDAZOLAM HCL 1 MG/ML 2ML VIAL ONE ×2 (06:40→06:41)
[2020-07-10] MEDS ORDERED: fentaNYL citrate 100 MCG/2 ML VIAL ONE ×2 (06:41→07:43)
[2020-07-10] MEDS ORDERED: ORTHO JOINT ANESTHETIC ONE (06:44)
--- NOTE | 2020-07-10 06:49 | History & Physical Bridge Note ---
Date of Service July 10, 2020 History & Physical Bridge Note I have examined the patient, reviewed the History & Physical and in the interval since the performance of the History & Physical I have noted the following changes of clinical significance: Recently started on a "water pill". Patient is aware of the risks, is asymptomatic, and tested negative for COVID- 19.
[2020-07-10] MEDS ORDERED: ATROPINE SULFATE 0.1 MG/ML 10ML SYR IV PRN (07:11)
[2020-07-10] MEDS ORDERED: ONDANSETRON INJ 2 MG/ML 2 ML VIAL IV PRN ×2 (07:11→10:17)
[2020-07-10] MEDS ORDERED: ePHEDrine sulfate 50 MG/ML AMP IV PRN (07:11)
[2020-07-10] MEDS ORDERED: ROCURONIUM BROMIDE 10 MG/ML 5 ML VIAL IV ONE (07:27)
[2020-07-10] MEDS ORDERED: VANCOMYCIN HCL 1000MG/20ML VIAL ONE (07:43)
[2020-07-10] MEDS ORDERED: PROPOFOL IV EMULSION 10 MG/ML 20 ML VIAL IV ONE (08:17)
[2020-07-10] MEDS ORDERED: ONDANSETRON INJ 2 MG/ML 2 ML VIAL ONE (08:17)
[2020-07-10] MEDS ORDERED: DEXAMETHASONE SOD INJ 4 MG/ML VIAL ONE (08:17)
[2020-07-10] MEDS ORDERED: LIDOCAINE HCL 2% 2 ML VIAL/AMP(20MG/ML) INFIL ONE (08:17)
[2020-07-10] MEDS ORDERED: HYDROmorphone INJ 2 MG/ML SYR/VIAL ONE (08:34)
[2020-07-10] MEDS ORDERED: ACETAMINOPHEN 1000 MG/100 ML IV IV ONE (09:08)
[2020-07-10] MEDS ORDERED: ePHEDrine sulfate 50 MG/ML SYR ONE (09:17)
--- NOTE | 2020-07-10 09:51 | Post Operative Brief Note ---
Immediate Post Op Note v1 Date of Surgery July 10, 2020 Pre & Post Diagnosis Operation Date: 07/10/20 07:00 Pre-Op Diagnosis: Right Knee Osteoarthritis Post-Op Diagnosis: Right Knee Osteoarthritis I identified the patient and participated in the time-out.: Yes Procedure Operation Date: 07/10/20 07:00 Actual Procedures p Right Total Knee Arthroplasty(Right) - Mic Oreilly MD Surgeon Mic Oreilly MD Business Services Assistant Yazmin Wilkins MD & J JOSH Aleman Estimated Blood Loss 120 Findings Consistent with Post-Op Diagnosis Fluids 1200 cc Specimens Right knee contents Anesthesia Type General Regional Complications none
--- NOTE | 2020-07-10 09:52 | Operative Report ---
Post Operative Report Pre & Post Diagnosis Operation Date: 07/10/20 07:00 Pre-Op Diagnosis: Right Knee Osteoarthritis Post-Op Diagnosis: Right Knee Osteoarthritis I identified the patient and participated in the time-out.: Yes Procedure Operation Date: 07/10/20 07:00 Actual Procedures p Right Total Knee Arthroplasty(Right) - Mic Oreilly MD Surgeon Mic Oreilly MD Swimming Pool Attendant Yazmin Wilkins MD & Anita Aleman PA-C Estimated Blood Loss 120 Findings See Below Examined Under Anesthesia: ROM -- There was 5 degree flexion contracture to 120 degrees of flexion Ligamentous examination -- revealed stable Jozef, posterior drawer, varus and valgus stress at 0 and 30 degrees. [place] Type IV changes of Trochlea and Patella, Type III changes medial compartment, Type II changes lateral compartment. Fluids 1200 cc Specimens Right knee contents Anesthesia Type General Regional Complications none Indications This is a 79-year-old male who has clinical and radiographic findings consistent with osteoarthritis of the a right knee. I recommended that a right total knee replacement be performed. The patient understands the risks of surgery, which include but not limited to: bleeding, infection, re-operation, damage to nerves and arteries, continued knee pain, knee stiffness, DVT, and . The patient understands all of these instructions and explanations, all of his questions have been satisfactorily addressed and the patient has elected to proceed. Informed consent was signed. Description of Procedure IMPLANTS: 1. Femur: Triathlon #5 Right PS. 2. Tibia: Triathlon #4 [place]. 3. Insert: Triathlon #4 x 9 mm PS X3 poly. 4. Patella: Triathlon A35 x 10 mm X3 poly. 5. [place]os G cement x 2 + 1g Vancomycin per bag of cement. PROCEDURE: The patient was taken to the Operating Room and placed in the supine position after general anesthesia and adductor canal nerve block was administered. My initials and a multidisciplinary time-out were used to identify the right leg as the correct operative limb. A tourniquet was placed high in the thigh. Prior to the incision, 2 grams of intravenous Ancef were given. The right leg was then prepped and draped in a standard sterile fashion. As he had a previous history of DVT on the opposite leg the tourniquet was not used. The planned mid-line ~20 cm incision was created exposing the extensor mechanism. The medial parapatellar arthrotomy was made and the patella was everted. The patella was addressed first. It was prepared by reaming from 24 mm down to 14 mm. An A35 button was found to fit best. The peg holes were made in the standard fashion. The femur was addressed next and the guide ana m was placed intramedullary. The initial cutting block was placed with 5 degrees of valgus and removing 10 mm for the distal cut. The cut was made and the 4-in-1 cutting block for a size 5 femur was placed. These cuts and the cuts to place the box were made in the standard fashion. Our attention was then drawn to the tibia cut with the external cutting guide, taking 4 mm from the medial low side. There was sufficient extension and flexion gap to fit a 9 mm spacer. A #4 Tibial baseplate fit well. A trial with a 9 mm spacer showed excellent stability in both flexion and extension, with good ligament balance. Range of motion of 0-125 degrees. The tibial baseplate was pinned and the final preparation for the keel and stem was made. All the trial components were tested again, with good stability and thumbs free tracking of the patella. All components were removed. Hemostasis was maintained throughout the case. 90 ml of total knee cocktail were injected into the soft tissues and periosteum. A bone plug was placed in the femur and covered with bone wax. All surfaces were copiously irrigated prior to placement of the components. The femoral component and Tibial baseplate were placed first followed by the 9 mm X3 poly. Next the patellar button was cemented in place. Again the range of motion and stability were unchanged. The extensor mechanism was closed with 1-0 and 0 Vicryl with the knee bent approximately 60 degrees in a standard fashion. The peritenon and deep fascia was closed with 2-0 Vicryl. The subcutaneous layer was closed with 3-0 Vicryl. The skin was closed with Zipline. The limb was cleaned and dried. 4x4 dressing was placed over top followed by ABDs, sterile Webril, and a foot to thigh Valeriano bandage. The patient was then transferred to the Recovery Room in stable condition. The sponge and needle counts were correct. POST-OP INSTRUCTIONS: The patient will be WBAT. The patient will be admitted to the hospital. The patient will use the knee immobilizer when ambulating and standing until good quad control is achieved. Labs will be obtained during the stay. DVT prophylaxis will included 3 weeks of Lovenox starting tonight followed by another 3 weeks of aspirin, TEDs, and mechanical foot pumps. The dressing will be changed prior to their discharge or postop day #2 and covered with a Silverlon dressing, whichever comes first. I attest to the content of the Intraoperative Record and any orders documented therein. Any exceptions are noted below.
[2020-07-10] MEDS ORDERED: diphenhydrAMINE 50 MG/ML VIAL IV PRN (10:17)
[2020-07-10] MEDS ORDERED: diphenhydrAMINE Capsule 25 MG CAP PO PRN (10:17)
[2020-07-10] MEDS ORDERED: MAGNESIUM HYDROXIDE SUSP 30 ML UDC PO PRN (10:17)
[2020-07-10] MEDS ORDERED: NALOXONE HCL 0.4 MG/1 ML VIAL/CARP IV PRN (10:17)
[2020-07-10] MEDS ORDERED: METOCLOPRAMIDE HCL INJ 5 MG/ML 2 ML VIAL IV PRN (10:17)
[2020-07-10] MEDS ORDERED: bisacodyL 10 MG SUPP PR PRN (10:17)
[2020-07-10] MEDS ORDERED: HYDROmorphone INJ 1 MG/ML SYRINGE IV PRN (10:17)
[2020-07-10] MEDS ORDERED: MOMETASONE FUROATE 0.1% CR 15 GM TUBE EXT PRN (10:17)
--- NOTE | 2020-07-10 10:35 | XRay Report ---
XR knee RT 1 or 2V routine HISTORY: 79 years-old Male Surgical Post Op right knee total joint arthroplasty COMPARISON: Leg length study 06/24/2020 TECHNIQUE: 2 views of the right knee FINDINGS: Right knee total joint arthroplasty and patella resurfacing. Satisfactory alignment without acute fra cture or expected opaque foreign body. Expected soft tissue swelling with deep tissue air. IMPRESSION: Right knee total joint arthroplasty and patella resurfacing with expected postoperative c hanges. ACT 112: Negative or not required by law. The above report was generated using voice recognition software. It may contain grammatical, syntax o r spelling errors. Electronically signed by: Josh Garcia M.D. 07/10/2020 10:34 AM
[2020-07-10] MEDS: fentaNYL citrate 100 MCG/2 ML VIAL IV PRN ×2 (10:38→10:43)
--- NOTE | 2020-07-10 11:18 | Anesthesiology Progress Note ---
Date of Service July 10, 2020 Anesthesia Post Procedure Vital Signs Vital Signs: Temp Pulse Pulse Resp BP Pulse Ox 07/10/20 11:15 100 H 23 132/72 96 07/10/20 11:00 36.5 C 96 H 20 113/59 L 94 07/10/20 10:50 99 H 10 L 126/79 96 07/10/20 10:40 100 H 14 117/64 97 07/10/20 10:30 97 H 14 132/69 92 07/10/20 10:20 103 H 16 121/72 97 07/10/20 10:12 36.0 C L 95 H 16 120/68 97 07/10/20 05:44 36.7 C 102 H 20 115/79 95 Pain Intensity Right Knee: Pain Intensity: 5 Transfer of Care Handoff Completed per policy Notes Mental Status: alert / awake / arousable Patient Amnestic to Procedure: Yes Nausea / Vomiting: adequately controlled Pain: adequately controlled Airway Patency, RR, SpO2: stable & adequate BP & HR: stable & adequate Hydration State: stable & adequate Anesthetic Complications: no major complications apparent
[2020-07-10] MEDS: SODIUM CHLORIDE 0.9% 1000ML 1,000 ML IV SCH ×2 (11:36→21:14)
--- NOTE | 2020-07-10 13:47 | Operative Report ---
Post Operative Report Pre & Post Diagnosis Operation Date: 07/10/20 07:00 Pre-Op Diagnosis: Right Knee Osteoarthritis Post-Op Diagnosis: Right Knee Osteoarthritis I identified the patient and participated in the time-out.: Yes Procedure Operation Date: 07/10/20 07:00 Actual Procedures p Right Total Knee Arthroplasty(Right) - Mic Oreilly MD Surgeon Berenice Wilkins MD [employer] Assistant Yazmin Wilkins MD & Anita Aleman PA-C Estimated Blood Loss 120 Findings Consistent with Post-Op Diagnosis Specimens bone cuts Anesthesia Type General Complications none Disposition Accompanied Patient To Recovery: Yes Disposition: Recovery Room Description of Procedure As per 's note I assisted in prepping and draping, instruments handling, certain parts of the procedure and wound closure I attest to the content of the Intraoperative Record and any orders documented therein. Any exceptions are noted below.
[2020-07-10] MEDS: ACETAMINOPHEN 500 MG TAB PO SCH ×2 (14:03→21:14)
[2020-07-10] MEDS: ceFAZolin 2000MG 2,000 MG/15 ML SYR IV SCH ×2 (14:40→22:04)
[2020-07-10] MEDS: Scopolamine CHECK PATCH PLACEMENT SCH ×2 (15:25→23:15)
[2020-07-10] MEDS ORDERED: COUGH DROP (SUGAR FREE) LOZ 24 LOZ/1 BOX BUCCAL PRN (15:27)
[2020-07-10] MEDS ORDERED: Nursing to Pharmacy Communication SCH (15:30)
[2020-07-10] MEDS: SPIRONOLACTONE 25 MG TAB PO SCH (18:07)
[2020-07-10] MEDS: ASCORBIC ACID 500 MG TAB PO SCH (18:08)
[2020-07-10] MEDS: AMOXICILLIN/CLAVULANATE 875 MG TAB PO SCH (18:08)
[2020-07-10] MEDS: FERROUS GLUCONATE 324 MG TAB PO SCH (18:09)
--- NOTE | 2020-07-10 19:11 | Orthopedic Progress Note ---
Date of Service July 10, 2020 Assessment & Plan (1) Arthritis of knee, right: POD #0 s/p R TKA, doing as well as expected. Resume diet. WBAT with walker, Immobilizer for 48 hours or until demonstrates good quad control. Immobilizer only needs to be worn for ambulation and transfers, can be off in bed or while in chair. OOB to chair. Continue pain control. Check labs tomorrow. DVT prophylaxis: TEDs 3 weeks, foot pumps while in hospital, Lovenox 30 mg SubQ for 3 weeks BID, followed by ASA 81 mg BID for 3 weeks. PT/OT. D/C planning. Present on Admission?: Yes Admission and Anticipated Discharge Date Admission Date: July 10, 2020 Subjective Doing well Review of Systems Review of Systems: All systems reviewed & are unremarkable except as noted in HPI & below Physical Exam Physical Exam: RLE: Wiggling toes. Sensation to light touch intact. BCR < 2 sec. Dressing clean, dry, intact. Results & Data ([facility]) Vital Signs (Past 12 Hours) Vital Signs Temp Pulse Pulse Resp BP Pulse Ox 07/10/20 15:17 36.4 C L 105 H 17 109/71 95 07/10/20 14:34 36.6 C 103 H 18 109/68 97 07/10/20 13:21 106 H 16 122/76 95 07/10/20 12:27 104 H 18 131/79 98 07/10/20 11:55 36.9 C 98 H 18 124/74 96 07/10/20 11:25 36.5 C 101 H 18 129/70 98 07/10/20 11:15 100 H 23 132/72 96 07/10/20 11:00 36.5 C 96 H 20 113/59 L 94 07/10/20 10:50 99 H 10 L 126/79 96 07/10/20 10:40 100 H 14 117/64 97 07/10/20 10:30 97 H 14 132/69 92 07/10/20 10:20 103 H 16 121/72 97 07/10/20 10:12 36.0 C L 95 H 16 120/68 97
[2020-07-10] MEDS: oxyCODONE HCL IR 5 MG TAB (IMMEDIATE RELEASE) PO PRN (20:02)
[2020-07-10] MEDS: SULFAMETHOXAZOLE/TRIMETHOPRIM DS 800/160MG TAB PO SCH (20:05)
[2020-07-10] MEDS: ENOXAPARIN INJ 30 MG/0.3 ML SYR SQ SCH (20:05)
[2020-07-10] MEDS: SENNA 8.6 MG TAB PO SCH (20:05)
[2020-07-10] MEDS: DOCUSATE SODIUM 100 MG CAP PO SCH (20:05)
[2020-07-10] MEDS: LOSARTAN POTASSIUM 25 MG TAB PO SCH (20:05)
[2020-07-10] MEDS ORDERED: COENZYME Q10 50 MG PO SCH (21:00)
[2020-07-11] MEDS: ACETAMINOPHEN 500 MG TAB PO SCH ×3 (05:46→21:11)
[2020-07-11 06:03] LABS: Hematocrit (blood only) 33.3 % (42-52); Hemoglobin 11.4 g/dL (14.0-18.0); Mean Corpuscular Hemoglobin 32.6 pg (25-34); Mean Corpuscular Hgb Conc 34.2 g/dL (32-36); Mean Corpuscular Volume 95.1 fL (80-100); Mean Platelet Volume 9.1 fL (7.4-10.4); Platelet Count 237 K/uL (130-400); RDW Coefficient of Variation 13.2 % (11.5-14.5); RDW Standard Deviation 45.7 fL (36.4-46.3); White Blood Count 15.79 K/uL (4.8-10.8)
[2020-07-11 06:39] LABS: BUN Creatinine Ratio 12.3 (10-20); Calcium 8.2 mg/dl (8.5-10.1); Creatinine Clr Calc Pharmacy 69.5 ml/min; Est GFR (Non-African American) 60.4; Potassium 4.1 mmol/L (3.5-5.1)
[2020-07-11] MEDS: AMOXICILLIN/CLAVULANATE 875 MG TAB PO SCH ×2 (08:44→16:20)
[2020-07-11] MEDS: ASCORBIC ACID 500 MG TAB PO SCH ×2 (08:45→16:20)
[2020-07-11] MEDS: DOCUSATE SODIUM 100 MG CAP PO SCH ×2 (08:45→21:11)
[2020-07-11] MEDS: FERROUS GLUCONATE 324 MG TAB PO SCH ×2 (08:45→16:20)
[2020-07-11] MEDS: MULTIVITAMIN TAB PO SCH (08:46)
[2020-07-11] MEDS: LOSARTAN POTASSIUM 25 MG TAB PO SCH ×2 (08:46→21:11)
[2020-07-11] MEDS: ADVANCED PROBIOTIC 1250 MG CAPSULE PO SCH (08:46)
[2020-07-11] MEDS: SULFAMETHOXAZOLE/TRIMETHOPRIM DS 800/160MG TAB PO SCH ×2 (08:47→21:11)
[2020-07-11] MEDS: ENOXAPARIN INJ 30 MG/0.3 ML SYR SQ SCH ×2 (08:48→21:11)
[2020-07-11] MEDS: Scopolamine CHECK PATCH PLACEMENT SCH ×3 (08:48→23:58)
[2020-07-11] MEDS: SPIRONOLACTONE 25 MG TAB PO SCH ×2 (08:49→16:20)
--- NOTE | 2020-07-11 10:54 | Orthopedic Progress Note ---
Date of Service July 11, 2020 Assessment & Plan (1) Arthritis of knee, right: POD #1 s/p R TKA, doing as well as expected. Resume diet. WBAT with walker, Immobilizer for 48 hours or until demonstrates good quad control. Immobilizer only needs to be worn for ambulation and transfers, can be off in bed or while in chair. Dressings changed today, reinforce as needed. OOB to chair. Continue pain control. H/H stable. Will monitor. Recheck CBC in AM. DVT prophylaxis: TEDs 3 weeks, foot pumps while in hospital, Lovenox 30 mg SubQ for 3 weeks BID, followed by ASA 81 mg BID for 3 weeks. PT/OT. D/C planning - due to PT report, recommending inpatient rehab, referrals placed by case management. Patient in agreement. Possible discharge tomorrow. Admission and Anticipated Discharge Date Admission Date: July 10, 2020 Subjective Patient states that he's not great today. He denies pain in right leg, but states that he's lightheaded and dizzy when he gets up. He's tolerating a regular diet, but not very much of an appetite. He was seen by PT and states that he didn't do well with them either, due to the dizziness. He states that he almost fell to the ground. Right knee pain in the back of his knee. He has noticed some foot swelling. He states that he's going to the bathroom okay and is passing gas. Physical Exam Physical Exam: Right knee incision zip line intact. Mild bloody drainage on right knee dressings. Dressings changed today. No calf tenderness, moderate pitting edema dorsum of right foot, dorsal pedis pulse 1+. Moves toes well, distal sensation normal. Able independently SLR right lower extremity. No edema throughout leg, just top of foot. Results & Data ([facility]) Vital Signs (Past 12 Hours) Vital Signs Temp Pulse Resp BP Pulse Ox 07/11/20 08:43 109/65 07/11/20 07:43 36.6 C 93 H 18 99/62 L 94 07/11/20 03:39 36.6 C 91 H 24 114/71 97 07/10/20 23:20 36.6 C 101 H 20 91/54 L 92 Laboratory Results 07/11/20 07/11/20 Range/Units 05:51 05:51 WBC 15.79 H (4.8-10.8) K/uL RBC 3.50 L (4.7-6.1) M/uL Hgb 11.4 L (14.0-18.0) g/dL Hct 33.3 L (42-52) % MCV 95.1 (80-100) fL MCH 32.6 (25-34) pg MCHC 34.2 (32-36) g/dL RDW Std Deviation 45.7 (36.4-46.3) fL RDW Coeff of Delmer 13.2 (11.5-14.5) % Plt Count 237 (130-400) K/uL MPV 9.1 (7.4-10.4) fL Sodium 139 (136-145) mmol/L Potassium 4.1 (3.5-5.1) mmol/L Chloride 108 H (98-107) mmol/L Carbon Dioxide 24 (21-32) mmol/L Anion Gap 7.0 (3-11) BUN 14 (7-18) mg/dl Creatinine 1.16 (0.6-1.4) mg/dl Est Cr Clr Drug Dosing 69.5 ml/min Est GFR ( Amer) 70.0 Est GFR (Non-Af Amer) 60.4 BUN/Creatinine Ratio 12.3 (10-20) Glucose 116 H (70-99) mg/dl Calcium 8.2 L (8.5-10.1) mg/dl Diagnostic Findings XR knee RT 1 or 2V routine HISTORY: 79 years-old Male Surgical Post Op right knee total joint arthroplasty COMPARISON: Leg length study 06/24/2020 TECHNIQUE: 2 views of the right knee FINDINGS: Right knee total joint arthroplasty and patella resurfacing. Satisfactory alignment without acute fracture or expected opaque foreign body. Expected soft tissue swelling with deep tissue air. IMPRESSION: Right knee total joint arthroplasty and patella resurfacing with expected postoperative changes.
--- NOTE | 2020-07-11 16:35 | Orthopedic Progress Note ---
Date of Service July 11, 2020 Assessment & Plan (1) Arthritis of knee, right: POD #1 s/p R TKA, doing as well as expected. Per my observation normal mild post-op confusion. However, medicine consulted and will await their evaluation. Continue diet. WBAT with walker, Immobilizer for 48 hours or until demonstrates good quad control. Immobilizer only needs to be worn for ambulation and transfers, can be off in bed or while in chair. Dressings changed today, reinforce as needed. Plan to change to [place] on 07/12. OOB to chair. Continue pain control. H/H stable. Will monitor. Recheck CBC in AM. DVT prophylaxis: TEDs 3 weeks, foot pumps while in hospital, Lovenox 30 mg SubQ for 3 weeks BID, followed by ASA 81 mg BID for 3 weeks. PT/OT. D/C planning - recommending inpatient rehab, referrals placed to [facility]. Spoke to case management. Awaiting response. Patient in agreement. Possible discharge tomorrow. Admission and Anticipated Discharge Date Admission Date: July 10, [address] Oreilly received a call that the patient seemed confused when he was talking to his . His asked for medicine to be consulted. I saw patient in his room. He was resting in bed. He says he has no pain at rest unless when he rotates his ankle (hx of ankle fracture over 25yr ago). He denies fever/chills/sweats. He denies chest pain, SOB, lightheadedness. He had dizziness in AM. He's eating a PO diet. Urinating. Had bowel movement yesterday. He was seen by PT and states that he didn't do well with them earlier, due to the dizziness. He says his " confused him earlier" talking about their senior dog. He is aware we are awaiting placement for rehab/therapy. Physical Exam Physical Exam: Patient alert and oriented x 3. Resting in bed comfortably. Normal breathing. No slurred speech. Right leg with dressing intact. Ice over knee. Neg cherelle. No pain in knee with gentle PROM of knee. NV intact B LE. Results & Data ([facility]) Vital Signs (Past 12 Hours) Vital Signs Temp Pulse Resp BP Pulse Ox 07/11/20 15:04 37.1 C 100 H 18 105/62 97 07/11/20 08:43 109/65 07/11/20 07:43 36.6 C 93 H 18 99/62 L 94 Laboratory Results 07/11/20 07/11/20 Range/Units 05:51 05:51 WBC 15.79 H (4.8-10.8) K/uL RBC 3.50 L (4.7-6.1) M/uL Hgb 11.4 L (14.0-18.0) g/dL Hct 33.3 L (42-52) % MCV 95.1 (80-100) fL MCH 32.6 (25-34) pg MCHC 34.2 (32-36) g/dL RDW Std Deviation 45.7 (36.4-46.3) fL RDW Coeff of Delmer 13.2 (11.5-14.5) % Plt Count 237 (130-400) K/uL MPV 9.1 (7.4-10.4) fL Sodium 139 (136-145) mmol/L Potassium 4.1 (3.5-5.1) mmol/L Chloride 108 H (98-107) mmol/L Carbon Dioxide 24 (21-32) mmol/L Anion Gap 7.0 (3-11) BUN 14 (7-18) mg/dl Creatinine 1.16 (0.6-1.4) mg/dl Est Cr Clr Drug Dosing 69.5 ml/min Est GFR ( Amer) 70.0 Est GFR (Non-Af Amer) 60.4 BUN/Creatinine Ratio 12.3 (10-20) Glucose 116 H (70-99) mg/dl Calcium 8.2 L (8.5-10.1) mg/dl
[2020-07-11] MEDS: SENNA 8.6 MG TAB PO SCH (21:11)
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
[2020-07-11] MEDS: oxyCODONE HCL IR 5 MG TAB (IMMEDIATE RELEASE) PO PRN (23:54)
[2020-07-12] MEDS: ACETAMINOPHEN 500 MG TAB PO SCH ×3 (05:58→21:09)
[2020-07-12 06:28] LABS: Basophils # (auto) 0.02 K/uL (0-0.2); Basophils % (auto) 0.2 %; Eosinophils # (auto) 0.18 K/uL (0-0.5); Eosinophils % (auto) 1.7 %; Hematocrit (blood only) 34.4 % (42-52); Hemoglobin 11.5 g/dL (14.0-18.0); Immature Granulocytes # (auto) 0.02 K/uL (0.00-0.02); Immature Granulocytes % (auto) 0.2 %; Lymphocytes # (auto) 1.24 K/uL (1.2-3.4); Lymphocytes % (auto) 11.5 %; Mean Corpuscular Hemoglobin 32.3 pg (25-34); Mean Corpuscular Hgb Conc 33.4 g/dL (32-36); Mean Corpuscular Volume 96.6 fL (80-100); Mean Platelet Volume 9.6 fL (7.4-10.4); Monocytes # (auto) 1.22 K/uL (0.11-0.59); Monocytes % (auto) 11.3 %; Neutrophils # (auto) 8.07 K/uL (1.4-6.5); Neutrophils % (auto) 75.1 %; Platelet Count 269 K/uL (130-400); RDW Coefficient of Variation 13.4 % (11.5-14.5); RDW Standard Deviation 47.2 fL (36.4-46.3); Red Blood Count 3.56 M/uL (4.7-6.1); White Blood Count 10.75 K/uL (4.8-10.8)
[2020-07-12] MEDS: oxyCODONE HCL IR 5 MG TAB (IMMEDIATE RELEASE) PO PRN ×2 (08:30→21:07)
[2020-07-12] MEDS: ASCORBIC ACID 500 MG TAB PO SCH ×2 (08:31→17:57)
[2020-07-12] MEDS: FERROUS GLUCONATE 324 MG TAB PO SCH ×2 (08:31→17:57)
[2020-07-12] MEDS: Scopolamine CHECK PATCH PLACEMENT SCH ×3 (08:31→22:19)
[2020-07-12] MEDS: AMOXICILLIN/CLAVULANATE 875 MG TAB PO SCH ×2 (08:31→17:57)
[2020-07-12] MEDS: LOSARTAN POTASSIUM 25 MG TAB PO SCH ×2 (08:31→21:08)
[2020-07-12] MEDS: SPIRONOLACTONE 25 MG TAB PO SCH ×2 (08:31→17:56)
[2020-07-12] MEDS: ENOXAPARIN INJ 30 MG/0.3 ML SYR SQ SCH ×2 (08:33→21:09)
[2020-07-12] MEDS: ADVANCED PROBIOTIC 1250 MG CAPSULE PO SCH (08:33)
[2020-07-12] MEDS: SULFAMETHOXAZOLE/TRIMETHOPRIM DS 800/160MG TAB PO SCH ×2 (08:33→21:09)
[2020-07-12] MEDS: DOCUSATE SODIUM 100 MG CAP PO SCH ×2 (08:33→21:09)
[2020-07-12] MEDS: MULTIVITAMIN TAB PO SCH (08:33)
--- NOTE | 2020-07-12 15:01 | Hospitalist Progress Note ---
Date of Service July 12, 2020 Assessment & Plan (1) Arthritis of knee, right: s/p TKA with Dr. Oreilly no complications, pain well controlled, participating in therapy d/c planning per ortho breathing well on room air, eating well WBC is normal today, the rise up to 15k likely reactive to surgery Hb stable at 11.5 BMP on 2/ shows stable Cr and electrolytes will sign off at this time, stable medically (2) Delirium: patient is oriented x 3 he has some intermittent confusion, disoriented about recent events, what his is doing from our conversation, it sounds like he is talking about actual events, just mixed up on current timeline of events will continue to orient him whenever possible likely that mental status will be normal with return to usual home setting (3) Anemia: mild acute blood loss anemia from surgery, Hb is 11 Hb stable today at 11.5 (4) Hypertension: BP low normal, on Losartan and spironolactone good oral intake, examines euvolemic Admission and Anticipated Discharge Date Admission Date: July 12, 2020 Subjective patient doing well, resting in bed still with pain in right knee eating well, no chest pain, no dyspnea, no fever CM working on rehab at [facility] patient agrees to go there he is oriented x 3 Review of Systems Review of Systems: All systems reviewed & are unremarkable except as noted in Subjective Musculoskeletal: + joint pain (knee) Physical Exam Constitutional: WD/WN, vitals as above + obese Neck: trachea midline, no thyromegaly Respiratory: normal respiratory effort, lungs clear to auscultation Cardiovascular: RRR, no murmur, no edema Gastrointestinal (Abdomen): normal bowel sounds, soft, nontender, no hepatosplenomegaly Musculoskeletal: Head/Neck/Chest: normocephalic, head atraumatic and neck supple Spine: thoracic spine normal to inspection; + lumbar spine abnormal to inspection (large scar from prior surgery) Extremities: + limited ROM of extremities (right knee) and strength 5/5 throughout; no cyanosis, no clubbing and no petechiae Knee: + knee abnormal to inspection (right knee, wrapped, swollen) Skin: no rashes, warm and dry Neurologic: patellar DTR's 2+ bilat, sensation intact and PERRL, EOMI, accommodation nl, no face palsy, no dysarthria Psychiatric: Orientation: alert, oriented x 3 and cooperative Lymphatic: no cervical or axillary lymphadenopathy Results & Data Results & Data ([facility]) Vital Signs (Past 12 Hours) Vital Signs Temp Pulse Resp BP Pulse Ox 07/12/20 07:56 36.6 C 98 H 18 122/75 94 Laboratory Results Laboratory Results - last 24 hr 07/12/20 05:44 WBC 10.75 RBC 3.56 L Hgb 11.5 L Hct 34.4 L MCV 96.6 MCH 32.3 MCHC 33.4 RDW Std Deviation 47.2 H RDW Coeff of Delmer 13.4 Plt Count 269 MPV 9.6 Immature Gran % (Auto) 0.2 Neut % (Auto) 75.1 Lymph % (Auto) 11.5 [place] % (Auto) 11.3 Eos % (Auto) 1.7 Baso % (Auto) 0.2 Neut # (Auto) 8.07 H Lymph # (Auto) 1.24 [place] # (Auto) 1.22 H Eos # (Auto) 0.18 Baso # (Auto) 0.02 Immature Gran # (Auto) 0.02 Medications Administered Current Inpatient Medications Acetaminophen (Acetaminophen 500 Mg Tab) 1,000 mg PO Q8 JUAN Stop: 08/09/20 13:59 Last Admin: 07/12/20 13:44 Dose: 1,000 mg Documented by: Amoxicillin/Clavulanate Potassium (Amoxicillin/Clavulanate 875 Mg Tab) 1 tab PO BIDM JUAN Stop: 08/09/20 16:59 Last Admin: 07/12/20 08:31 Dose: 1 tab Documented by: Ascorbic Acid (Ascorbic Acid 500 Mg Tab) 500 mg PO BIDM [facility] Stop: 08/09/20 16:59 Last Admin: 07/12/20 08:31 Dose: 500 mg Documented by: Bisacodyl (Bisacodyl 10 Mg Supp) 10 mg MD DAILY PRN PRN Reason: Constipation Stop: 08/09/20 10:16 Diphenhydramine HCl (Diphenhydramine 50 Mg/Ml Vial) 25 mg IV Q8H PRN PRN Reason: Itching Stop: 08/09/20 10:16 Diphenhydramine HCl (Diphenhydramine Capsule 25 Mg Cap) 25 mg PO Q8H PRN PRN Reason: Itching Stop: 08/09/20 10:16 Docusate Sodium (Docusate Sodium 100 Mg Cap) 100 mg PO BID [facility] Stop: 08/09/20 20:59 Last Admin: 07/12/20 08:33 Dose: 100 mg Documented by: Enoxaparin Sodium (Enoxaparin Inj 30 Mg/0.3 Ml Syr) 30 mg SQ Q12H [facility] Stop: 08/09/20 20:59 Last Admin: 07/12/20 08:33 Dose: 30 mg Documented by: Ferrous Gluconate (Ferrous Gluconate 324 Mg Tab) 324 mg PO BIDM [facility] Stop: 08/09/20 16:59 Last Admin: 07/12/20 08:31 Dose: 324 mg Documented by: Hydromorphone HCl (Hydromorphone Inj 1 Mg/Ml Syringe) 1 mg IV Q4H PRN PRN Reason: Pain Stop: 07/24/20 10:16 Lactobacillus Acidoph/Casei/Rhamnos (Advanced Probiotic 1250 Mg Capsule) 2 cap PO QAM [facility] Stop: 08/10/20 08:59 Last Admin: 07/12/20 08:33 Dose: 2 cap Documented by: Losartan Potassium (Losartan Potassium 25 Mg Tab) 25 mg PO BID [facility] Stop: 08/09/20 20:59 Last Admin: 07/12/20 08:31 Dose: 25 mg Documented by: Magnesium Hydroxide (Magnesium Hydroxide Susp 30 Ml Udc) 30 ml PO Q6H PRN PRN Reason: Constipation Stop: 08/09/20 10:16 Menthol (Cough Drop (Sugar Free) Zhen 24 Zhen/1 Box) 1 zhen BUCCAL PRN PRN PRN Reason: Cough Stop: 08/09/20 15:26 Last Admin: 07/10/20 15:53 Dose: 1 zhen Documented by: Metoclopramide HCl (Metoclopramide Hcl Inj 5 Mg/Ml 2 Ml Vial) 10 mg IV Q6H PRN PRN Reason: Nausea And Vomiting Stop: 08/09/20 10:16 Miscellaneous (Scopolamine Check Patch Placement) 1 ea N/A QS [facility] Stop: 07/13/20 07:59 Last Admin: 07/12/20 08:31 Dose: 1 ea Documented by: Miscellaneous (Scopolamine Remove Transderm Patch) 1 ea N/A ONE ONE Stop: 07/13/20 08:01 Mometasone Furoate (Mometasone Furoate 0.1% Cr 15 Gm Tube) 1 appln EXT DAILY PRN PRN Reason: Rash Stop: 08/09/20 10:16 Multivitamins (Multivitamin Tab) 1 tab PO QAM [facility] Stop: 08/10/20 08:59 Last Admin: 07/12/20 08:33 Dose: 1 tab Documented by: Naloxone HCl (Naloxone Hcl 0.4 Mg/1 Ml Vial/Carp) 0.1 mg IV Q5M PRN PRN Reason: Oversedation/Resp Depression Stop: 08/09/20 10:16 Ondansetron HCl (Ondansetron Inj 2 Mg/Ml 2 Ml Vial) 4 mg IV Q6H PRN PRN Reason: Nausea And Vomiting Stop: 08/09/20 10:16 Oxycodone HCl (Oxycodone Hcl Ir 5 Mg Tab (Immediate Release)) 5 - 10 mg PO Q4H PRN PRN Reason: Pain or Pre PT Stop: 07/24/20 10:16 Last Admin: 07/12/20 08:30 Dose: 10 mg Documented by: Sennosides (Senna 8.6 Mg Tab) 17.2 mg PO HS [facility] Stop: 08/09/20 20:59 Last Admin: 07/11/20 21:11 Dose: 17.2 mg Documented by: Spironolactone (Spironolactone 25 Mg Tab) 50 mg PO BID17 [facility] Stop: 08/09/20 16:59 Last Admin: 07/12/20 08:31 Dose: 50 mg Documented by: Trimethoprim/Sulfamethoxazole (Sulfamethoxazole/Trimethoprim Ds 800/160mg Tab) 1 tab PO BID [facility] Stop: 08/09/20 20:59 Last Admin: 07/12/20 08:33 Dose: 1 tab Documented by: PG Care Time/CCT Total # of Minutes Spent Total Time Spent with Patient: Total time spent is greater than 50% in coordination of care (as documented) at patient's floor/unit and/or counseling patient: Coding Level of Care Code 53169 Subseq Hosp Care Lvl 2 Diagnoses Arthritis of knee, right M17.11 Delirium R41.0 Anemia D64.9 Hypertension I10
--- NOTE | 2020-07-12 16:57 | Orthopedic Progress Note ---
Date of Service July 12, 2020 Assessment & Plan (1) Arthritis of knee, right: POD #2 s/p R TKA, doing as well as expected. WBAT with walker, Immobilizer for 48 hours or until demonstrates good quad control. Immobilizer only needs to be worn for ambulation and transfers, can be off in bed or while in chair. Dressing changed to Silverlon this am. Continue to monitor. Reinforce if needed. Will recheck in AM and if needed apply new silverlon prior to DC. OOB to chair. Continue pain control. H/H stable. DVT prophylaxis: TEDs 3 weeks, foot pumps while in hospital, Lovenox 30 mg SubQ for 3 weeks BID, followed by ASA 81 mg BID for 3 weeks. PT/OT. D/C planning - recommending inpatient rehab, [facility] and [facility]. Spoke to case management. Awaiting response edgardo Menard. Has bed available at [facility]. Possible discharge tomorrow. I, Dr. Oreilly, saw and examined the patient and discussed the management with my PA. I reviewed my PAs note and agree with the documented findings and the plan of care I developed. Admission and Anticipated Discharge Date Admission Date: July 12, 2020 Subjective Patient sitting at bedside chair. Says feels better today. Denies dizziness. Walked with therapy but says he still feels weak. Pain in knee but controlled with medication. He is aware we are awaiting [facility] authorization and if denied [facility] has bed available. Dressing changed this AM by PA to silverlon. Physical Exam Physical Exam: Patient sitting at bedside chair. Right knee easily bends to 60 degrees. R knee silverlon with blood to distal center aspect of dressing. Knee with moderate effusion. No redness or warmth. B calves are soft with neg homans. Able to wiggle toes and ankle. Sensation grossly intact. Palpable distal pulses. Results & Data ([facility]) Vital Signs (Past 12 Hours) Vital Signs Temp Pulse Resp BP Pulse Ox 07/12/20 15:14 37.0 C 97 H 18 122/79 97 07/12/20 07:56 36.6 C 98 H 18 122/75 94 Laboratory Results 07/12/20 Range/Units 05:44 WBC 10.75 (4.8-10.8) K/uL RBC 3.56 L (4.7-6.1) M/uL Hgb 11.5 L (14.0-18.0) g/dL Hct 34.4 L (42-52) % MCV 96.6 (80-100) fL MCH 32.3 (25-34) pg MCHC 33.4 (32-36) g/dL RDW Std Deviation 47.2 H (36.4-46.3) fL RDW Coeff of Delmer 13.4 (11.5-14.5) % Plt Count 269 (130-400) K/uL MPV 9.6 (7.4-10.4) fL Immature Gran % (Auto) 0.2 % Neut % (Auto) 75.1 % Lymph % (Auto) 11.5 % [place] % (Auto) 11.3 % Eos % (Auto) 1.7 % Baso % (Auto) 0.2 % Neut # (Auto) 8.07 H (1.4-6.5) K/uL Lymph # (Auto) 1.24 (1.2-3.4) K/uL [place] # (Auto) 1.22 H (0.11-0.59) K/uL Eos # (Auto) 0.18 (0-0.5) K/uL Baso # (Auto) 0.02 (0-0.2) K/uL Immature Gran # (Auto) 0.02 (0.00-0.02) K/uL
[2020-07-12] MEDS: SENNA 8.6 MG TAB PO SCH (21:08)
[2020-07-13 00:11] VITALS: TEMP 97.9
[2020-07-13] MEDS: ACETAMINOPHEN 500 MG TAB PO SCH ×3 (06:00→21:47)
[2020-07-13] MEDS: DOCUSATE SODIUM 100 MG CAP PO SCH ×2 (08:25→20:19)
[2020-07-13] MEDS: LOSARTAN POTASSIUM 25 MG TAB PO SCH ×2 (08:25→20:19)
[2020-07-13] MEDS: SPIRONOLACTONE 25 MG TAB PO SCH ×2 (08:25→16:15)
[2020-07-13] MEDS: MULTIVITAMIN TAB PO SCH (08:25)
[2020-07-13] MEDS: AMOXICILLIN/CLAVULANATE 875 MG TAB PO SCH ×2 (08:26→16:15)
[2020-07-13] MEDS: ENOXAPARIN INJ 30 MG/0.3 ML SYR SQ SCH ×2 (08:26→20:19)
[2020-07-13] MEDS: FERROUS GLUCONATE 324 MG TAB PO SCH ×2 (08:26→16:15)
[2020-07-13] MEDS: ADVANCED PROBIOTIC 1250 MG CAPSULE PO SCH (08:26)
[2020-07-13] MEDS: SULFAMETHOXAZOLE/TRIMETHOPRIM DS 800/160MG TAB PO SCH ×2 (08:26→20:19)
[2020-07-13] MEDS: ASCORBIC ACID 500 MG TAB PO SCH ×2 (08:28→16:15)
--- NOTE | 2020-07-13 10:03 | Orthopedic Progress Note ---
Date of Service July 13, 2020 Assessment & Plan (1) Arthritis of knee, right: POD #3 s/p R TKA, doing as well as expected. WBAT with walker, Immobilizer for 48 hours or until demonstrates good quad control with ambulation only. Distal Silverlon dressing changed. Reinforce if needed. OOB to chair. Continue pain control. DVT prophylaxis: TEDs 3 weeks, foot pumps while in hospital, Lovenox 30 mg SubQ for 3 weeks BID, followed by ASA 81 mg BID for 3 weeks. PT/OT. D/C planning - Awaiting an available bed for [facility] [place]. Pt agreeable to go. Sounds like possibly Thursday. However if sooner CM will contact ortho for DC. I, Dr. Oreilly, saw and examined the patient and discussed the management with my PA. I reviewed my PAs note and agree with the documented findings and the plan of care I developed. Further discussions with the patient's , they have decided to have PT, which needs to be arranged prior to d/c, likely tomorrow am. Admission and Anticipated Discharge Date Admission Date: July 12, 2020 Subjective patient doing well, resting in bed still with pain in right knee poor appetite, no chest pain, no dyspnea, no fever CM working on rehab at [facility], bed at this point may not be available until thursday patient agrees to go there, CM will keep us informed if possible earlier DC Physical Exam Physical Exam: A and O x 3. In bed. Right knee with silverlon in place. Distal aspect with blood along incision line of dressing. Knee with moderate effusion. No redness or warmth. B calves are soft with neg homans. Able to wiggle toes and ankle. Sensation grossly intact. Palpable distal pulses. Knee high TEDS donned. Results & Data ([facility]) Vital Signs (Past 12 Hours) Vital Signs Temp Pulse Resp BP Pulse Ox 07/13/20 07:22 36.6 C 108 H 19 122/78 92 07/12/20 23:59 36.6 C 107 H 16 117/67 93
[2020-07-13] MEDS: SENNA 8.6 MG TAB PO SCH (20:19)
[2020-07-14] MEDS: ACETAMINOPHEN 500 MG TAB PO SCH (05:14)
--- NOTE | 2020-07-14 07:23 | Orthopedic Progress Note ---
Date of Service July 14, 2020 Assessment & Plan (1) Arthritis of knee, right: POD #4 s/p R TKA, doing as well as expected. WBAT with walker. Silverlon dressing, reinforce if needed. OOB to chair. Continue pain control. DVT prophylaxis: TEDs 3 weeks, foot pumps while in hospital, Lovenox 30 mg SubQ for 3 weeks BID, followed by ASA 81 mg BID for 3 weeks. PT/OT. D/C planning - PT, which needs to be arranged prior to d/c, likely tomorrow am. Admission and Anticipated Discharge Date Admission Date: July 12, 2020 Subjective Best night sleep Review of Systems Review of Systems: All systems reviewed & are unremarkable except as noted in HPI & below Physical Exam Physical Exam: RLE: Wiggling toes. Sensation to light touch intact. BCR < 2 sec. Dressing clean, dry, intact, re-enforced, unchanged. Able to preform straight leg raise. Results & Data ([facility]) Vital Signs (Past 12 Hours) Vital Signs Temp Pulse Resp BP Pulse Ox 07/14/20 01:00 36.6 C 104 H 20 113/71 93
[2020-07-14 07:24] VITALS: BP 110/71; PULSE 101; O2SAT 94
[2020-07-14] MEDS: LOSARTAN POTASSIUM 25 MG TAB PO SCH (08:37)
[2020-07-14] MEDS: SULFAMETHOXAZOLE/TRIMETHOPRIM DS 800/160MG TAB PO SCH (08:37)
[2020-07-14] MEDS: MULTIVITAMIN TAB PO SCH (08:37)
[2020-07-14] MEDS: ENOXAPARIN INJ 30 MG/0.3 ML SYR SQ SCH (08:38)
[2020-07-14] MEDS: FERROUS GLUCONATE 324 MG TAB PO SCH (08:38)
[2020-07-14] MEDS: AMOXICILLIN/CLAVULANATE 875 MG TAB PO SCH (08:38)
[2020-07-14] MEDS: ASCORBIC ACID 500 MG TAB PO SCH (08:38)
[2020-07-14] MEDS: ADVANCED PROBIOTIC 1250 MG CAPSULE PO SCH (08:38)
[2020-07-14] MEDS: SPIRONOLACTONE 25 MG TAB PO SCH (08:38)
[2020-07-14] MEDS: DOCUSATE SODIUM 100 MG CAP PO SCH (08:53)
[2020-07-14] MEDS ORDERED: NURSING DECISION MEDICATION ONE (11:05)
[2020-07-14] MEDS ORDERED: COUGH DROP (SUGAR FREE) LOZ 24 LOZ/1 BOX BUCCAL PRN (11:14)
--- NOTE | 2020-07-14 12:55 | Orthopedic Progress Note ---
Date of Service July 14, 2020 Assessment & Plan (1) S/P total knee replacement using cement: Patient will be discharged to home today with home health services. Prescriptions for vitamin C, iron, oxycodone, and Lovenox 30 mg have been sent. Written discharge instructions have been provided. [facility] have [facility] to assist with wound care and therapy. Follow-up in the office in 2 weeks as scheduled for staple removal. He may get the wound wet in the shower but should not soak the knee. Silverlon dressings may remain in place. Continue ambulating using his walker. Call the office with any other concerns. Admission and Anticipated Discharge Date Admission Date: July 12, 2020 Subjective Patient was seen in his room this morning. He was conversive and stated he was ready to go home. Arrangements have been made for home health. He states he does not want to go to a assisted facility due to the risk of Covid exposure. He states he has no chest pain, shortness of breath, or abdominal pain. He has very little knee pain at this point. He has participated in PT. No other complaints. Review of Systems Review of Systems: Unchanged from yesterday. Physical Exam Physical Exam: General: Well-developed, well-nourished, elderly white male, in no acute distress. Laying on a bed. Alert and oriented. Skin: Warm and dry with good turgor. No rashes or lesions. No ecchymosis or erythema. The patient is not diaphoretic. Silverlon dressings are present on the right knee. There is no bleedthrough. Musculoskeletal: Patient has intact motor function of the ankle and toes. He is able to perform a straight leg raise. He has active flexion and extension of the knee. Neurologic: Gross sensation is intact across the right leg by soft touch. Peripheral pulses are 1+. Results & Data ([facility]) Vital Signs (Past 12 Hours) Vital Signs Temp Pulse Resp BP Pulse Ox 07/14/20 11:47 36.6 C 101 H 19 110/71 94 07/14/20 07:23 36.6 C 101 H 19 110/71 94 07/14/20 01:00 36.6 C 104 H 20 113/71 93
--- NOTE | 2020-07-16 15:30 | Discharge Summary ---
Date of Service July 14, 2020 Principal Diagnosis Right Knee Osteoarthritis Discharge Data Allergies Allergy/AdvReac Type Severity Reaction Status Date / Time No Known Allergies Allergy ` Verified 07/10/20 05:27 Consultations 07/10/20 10:17 Consult Case Management - Discharge Planning Routine 07/11/20 14:46 Consult Hospitalist Routine Procedures Performed Operation Date: 07/10/20 07:00 Actual Procedures p Right Total Knee Arthroplasty(Right) - Mic Ashely Oreilly MD Ordered Studies 07/10/20 05:00 US - OR guided needle placemen Routine Hospital Course (1) Arthritis of knee, right: 79 yr old male underwent right knee arthroplasty by Dr. Oreilly on July 10, 2020. Surgery was without complication, tolerating spinal anesthetic. He was admitted to the floor under observation. He received 24hr post-op Ancef. On postop day 1 he had some nausea and dizziness which affected his ability to participate in PT. Mild acute blood loss anemia, with stable vital signs however blood pressure running slightly low. On postop day 2, due to intermittent confusion medicine was consulted. He was diagnosed with delirium and mild acute blood loss anemia. Per medicine "likely mental status will be normal with return to home setting". Hgb remained stable throughout rest of hospital stay. He was changed from observation to admission. Patient continued to improve throughout the rest of his hospital stay. On postop day 3, case management stated a [facility] a [facility] but not until Thursday. and patient decided they would like to go home with home health physical therapy. On postop day 4 AM patient was deemed stable for discharge. Upon discharge patient tolerated regular p.o. diet, had a bowel movement and was able to urinate. Patient participated in daily physical therapy, with knee immobilizer being DC'd 48 hours postop. Patient ambulating with a walker. Patient's dressings to his wound were changed on postop day 3 to a silver alone waterproof dressing. DVT prophylaxis in-house consisted of Lovenox 30 mg SQ knee-high teds and foot pumps. His pain was controlled through out hospital stay and upon DC was requiring only PO pain medication. Patient was discharged to home with and son for the weekend. Home health physical therapy was ordered. Patient is weightbearing as tolerated to right lower extremity with a walker. Pain control with p.o. oxycodone as needed for severe pain and Tylenol 1000 mg every 8 hours as needed for mild to moderate pain. eZY WRAP gel pack recommended to ice his knee 3-5 times a day for 20 minutes at a time for the next 3 to 5 days and then as needed for pain and swelling. Patient is to keep the Silverlon waterproof dressing intact until follow-up appointment. DVT prophylaxis will consist of CARIDAD hose for a total of 3 weeks, Lovenox 30 mg SQ twice daily for 3 weeks followed by aspirin 81 mg. Patient has a follow-up scheduled with Dr. Oreilly's office 2 weeks postop for wound check and removal of Zipline. He was advised to contact the office or go to the emergency room with questions concerns. Please see below discharge plan for detailed instructions. Total Time Total Time Spent Total Time Spent (In Minutes): 20 Discharge Plan Discharge Items Patient Disposition: Home - Home Health Services Reason For Visit: Right Knee Osteoarthritis Discharge Diagnosis: Right Knee s/p total knee replacement Condition on Discharge: Good Activity: Per Instructions section Lifting: Wait until after follow-up appointment Bathing: No limitations Bathing Comment: waterprood dressing. ok to shower. do not submerge Exercise/Sports: Wait until after follow-up appointment Driving/Machine Use: no driving until cleared by surgeon Weightbearing: Right weightbearing Weightbearing Comment: as tolerated with walker Non-emergency contact: Surgeon Call non-emergency contact if: you have any medication questions, your pain is not controlled, your temperature is above 101.5, your wound has increased redness, your wound has increased drainage and your wound pain has increased Follow-up/Referrals: Brinda Frye [Primary Care Provider] - Yue Aleman P.A.-C. [Physician Rack Puller] - 07/25/20 10:00 am Diet: Regular Addtl Attending Provider Instructions: Post-operative Instructions Pain Expect to be in a fair amount of pain after surgery. Remember, our goal is not to eliminate your pain, but to make it tolerable. It is a good idea to stay ahead of your pain by taking the medications you were prescribed once you get home. Typically, the pain starts improving 3-7 days after surgery. You should start weaning off the narcotic pain medication (oxycodone) as soon as your pain improves. Please call our office if your pain is not adequately controlled. You can take tylenol 1000mg every 8hrs for mild to moderate pain. Ice Ice your operative site at least 5 times a day for 15-30 minutes at a time. Make sure you have a thin cloth between the ice or cooling unit and your skin to prevent freire bite. This is especially important if you received a nerve block. Continue icing your operative site for the first 5-7 days after surgery, then as needed. Diet/Nausea/Vomiting Start by drinking clear liquids and eating crackers. If you can tolerate this, then you may resume your normal diet. If you feel nauseated or vomit, take Zofran/ondansetron (if prescribed). Please call our office if you have intractable nausea or vomiting, or, if after hours, you may go to the Emergency Room for help. Constipation Constipation is a common side effect of narcotic pain medication. If you have not had a bowel movement within 2 days after surgery, we recommend purchasing an over the counter laxative such as Milk of Magnesia, Dulcolax, or Miralax from a local pharmacy, and taking it as instructed. Call our clinic if any questions. Weight bearing and Range of Motion. Weightbearing as tolerated with walker. No restrictions with range of motion. *KNEE IMMOBILIZER x 48hrs AFTER SURGERY WHILE AMBULATING AND THEN CAN STOP (CONTINUE IF YOU DO NOT HAVE GOOD QUAD CONTROL)* Physical therapy Initially you will start with [facility]. Then home health physical therapy. At our first visit with at our office we will discuss outpatient physical therapy. Wound care and showering We will inspect your wound at your first post-operative visit, and may do a dressing change at that time. Most patients will be in a water-proof dressing that is removed 14 days after surgery. It is normal to see some dried blood on the dressing. Do not remove your dressing, paper strips or sutures yourself unless you are given permission. Showering is allowed the day after surgery. Do not scrub or remove any dressings. The wound should not be submerged underwater (i.e. in a bathtub or pool) until 4 weeks after surgery CARIDAD stockings If you were given white stockings, these are to be worn at all times except to shower and sleep (on both legs) for the first 2 weeks after surgery. We will discuss removal at your first follow-up appointment. Driving You may not drive while taking narcotic pain medication. We will discuss return to driving at your first follow-up appointment. Return To Work Your return to work depends on what surgery was done and what type of work you do. Please bring any paperwork your employer needs completed to your first post-operative visit. Also, bring a description of your job duties, as this helps us to understand what risks you may face at work. Travel Avoid long distance travel (greater than 1 hour) in airplanes and cars for the first 6 weeks after surgery if possible. If you must travel, please let us know so we can discuss additional measures to prevent blood clots. Follow-up You should have a follow-up appointment already scheduled for 2 weeks after surgery. If not, please contact our office to make this appointment before you leave the hospital. When to call the office [phone] It is normal to have swelling and bruising in the limb that was operated on. This will improve with time. It is also normal to have fevers for the first 2 days after surgery. Reasons you should call your doctor include: Uncontrolled pain; Nausea, vomiting, or constipation that does not improve with medication; Fevers over 101.5, chills, sweats; Drainage or bleeding from the wound; Foul odor; Spreading areas of redness; Any other concerns. NEW MEDICATIONS: new medications will be sent to your pharmacy: lovenox injection 2xs a day for 3wks, Aspirin 81mg 2xs a day for another 3wks, iron for 2wks, vitamin c for 2wks, oxycodone as needed for severe pain, tylenol for mild to moderate pain Pending Studies at Discharge: No Stand-Alone Forms: My [facility], Opioid Pain Management, Smoking Cessation Medications and DC Order Prescriptions: New ascorbic acid (vitamin C) [Vitamin C] 500 mg Tablet 500 mg PO BIDM Qty: 30 RF: 0 oxycodone 5 mg Tablet 5 - 10 mg PO Q4H PRN (Reason: pain) Qty: 30 RF: 0 enoxaparin [Lovenox] 30 mg/0.3 mL Syringe 30 mg subcut Q12H Qty: 42 RF: 0 ferrous gluconate 324 mg (38 mg iron) Tablet 324 mg PO BIDM Qty: 30 RF: 0 Continued coenzyme Q10 [Co Q-10] 50 mg capsule 50 mg PO BID RF: 0 losartan [Cozaar] 25 mg tablet 25 mg PO BID RF: 0 spironolactone [Aldactone] 50 mg tablet 50 mg PO BID RF: 0 sulfamethoxazole-trimethoprim [Bactrim DS] 800-160 mg tablet 1 tab PO BID RF: 0 amoxicillin-pot clavulanate [Augmentin] 875-125 mg tablet 1 tab PO BID RF: 0 mometasone 0.1 % Cream 1 applic TOPICAL DAILY PRN (Reason: Rash) RF: 0 Probiotic 4X 10-15 mg Tablet,Delayed Release (Dr/Ec) 1 tab PO QAM RF: 0 Discharge Orders: Discharge Order (Routine); Ordered 07/14/20 Ordered By: Abhinav Felipe Admission Data Admit Date/Time: 07/12/20 14:38 Attending Provider: Mic Oreilly Admit Provider: Mic Oreilly Primary Care Provider: Brinda Frye Other Providers: [facility] ; [facility] ; Kale Hester ; [facility] Other Interventions: Discharge Summary Assessment (RN) Last Done: 07/14/20 11:47
== END 2020-07-14 14:00 | disposition home health service (06) ==
LOC: ASU 05:07 → 3E 05:07

== ENCOUNTER 2021-11-04 09:50 | Observation (INO) ==
[2021-11-04] MEDS ORDERED: ACETAMINOPHEN 1,000 MG/100 ML VIAL IV STA (10:19)
[2021-11-04] MEDS ORDERED: fentaNYL citrate 100 MCG/2 ML VIAL IV STA (10:19)
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
[2021-11-04 10:59] LABS: Basophils # (auto) 0.03 K/uL (0-0.2); Basophils % (auto) 0.3 %; Eosinophils # (auto) 0.21 K/uL (0-0.5); Eosinophils % (auto) 2.2 %; Hemoglobin 14.5 g/dL (14.0-18.0); Immature Granulocytes # (auto) 0.02 K/uL (0.00-0.02); Immature Granulocytes % (auto) 0.2 %; Lymphocytes # (auto) 0.91 K/uL (1.2-3.4); Lymphocytes % (auto) 9.4 %; Mean Corpuscular Hemoglobin 32.1 pg (25-34); Mean Corpuscular Hgb Conc 34.5 g/dL (32-36); Mean Corpuscular Volume 92.9 fL (80-100); Mean Platelet Volume 9.5 fL (7.4-10.4); Monocytes # (auto) 1.02 K/uL (0.11-0.59); Monocytes % (auto) 10.5 %; Neutrophils # (auto) 7.48 K/uL (1.4-6.5); Neutrophils % (auto) 77.4 %; Platelet Count 207 K/uL (130-400); RDW Coefficient of Variation 13.9 % (11.5-14.5); RDW Standard Deviation 47.3 fL (36.4-46.3); Red Blood Count 4.52 M/uL (4.7-6.1); White Blood Count 9.67 K/uL (4.8-10.8)
--- NOTE | 2021-11-04 11:12 | XRay Report ---
XR hip LT 2V w pelvis CLINICAL HISTORY: trauma TECHNIQUE: 2 views of the left hip and single frontal view of the pelvis were obtained. Comparison: None available at the time of this dictation. FINDINGS: There is no evidence of an acute fracture. Degenerative changes are seen in the hip joint. No soft ti ssue abnormality is seen. IMPRESSION: No evidence of acute osseous injury. ACT 112: Negative or not required by law. Electronically signed by: Kale Tovar M.D. 11/04/2021 11:09 AM
[2021-11-04 11:18] LABS: Albumin Globulin Ratio 1.6 (0.9-2); Albumin Level 4.2 gm/dl (3.4-5.0); BUN Creatinine Ratio 21.6 (10-20); Bilirubin,Total 0.8 mg/dl (0.2-1.0); Calcium 9.6 mg/dl (8.5-10.1); Creatinine Clr Calc Pharmacy 58.7 ml/min; Est GFR (African American) 58.4 ml/min; Est GFR (Non-African American) 50.4 ml/min; Globulin 2.6 gm/dl (2.5-4.0); Potassium 3.7 mmol/L (3.5-5.1); Total Protein 6.8 gm/dl (6.0-8.3)
--- NOTE | 2021-11-04 13:48 | CT Scan Report ---
CT hip LT wo con CLINICAL HISTORY: trauma, pain TECHNIQUE: Multidetector row helical CT of the left hip was performed without intravenous contrast. C oronal and sagittal reformations were obtained. Automated dose lowering techniques and/or adjustment according to patient size were utilized for this examination. CT DOSE: 796.84 mGy.cm Comparison: Comparison is made to left hip radiograph 11/04/2021 FINDINGS: Degenerative The joint spaces are maintained. No joint effusion is seen. The soft tissues are unrema rkable. IMPRESSION: No evidence of acute fracture or dislocation. ACT 112: Negative or not required by law. Electronically signed by: Kale Tovar M.D. 11/04/2021 1:46 PM
[2021-11-04] MEDS ORDERED: DICLOFENAC SOD 1% GEL 100 GM TUBE EXT STA (14:07)
[2021-11-04] MEDS ORDERED: KETOROLAC TROMETHAMINE 15 MG/ML VIAL IV ONE (14:07)
[2021-11-04] MEDS ORDERED: oxyCODONE HCL IR 5 MG TAB (IMMEDIATE RELEASE) PO STA (14:35)
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
[2021-11-04] MEDS ORDERED: oxyCODONE HCL IR 5 MG TAB (IMMEDIATE RELEASE) PO PRN (20:24)
[2021-11-04] MEDS ORDERED: POLYETHYLENE (MIRALAX) 17 GM PACK PO PRN (20:24)
[2021-11-04] MEDS ORDERED: MoRPHine SULFATE 2 MG/ML CARP IV PRN (20:24)
[2021-11-04] MEDS ORDERED: ACETAMINOPHEN 325 MG TAB PO PRN (20:24)
[2021-11-04] MEDS ORDERED: MoRPHine SULFATE 4 MG/ML 1 ML CARP\\VIAL IV PRN (20:24)
[2021-11-04] MEDS: ACETAMINOPHEN 500 MG TAB PO SCH (22:22)
[2021-11-04] MEDS: ASCORBIC ACID 500 MG TAB PO SCH (22:23)
[2021-11-04] MEDS: AMOXICILLIN/CLAVULANATE 875 MG TAB PO SCH (22:23)
[2021-11-04] MEDS: LIDOCAINE 5% 1 PATCH TD SCH (22:24)
[2021-11-04] MEDS: SULFAMETHOXAZOLE/TRIMETHOPRIM DS 800/160MG TAB PO SCH (22:24)
[2021-11-04] MEDS: GABAPENTIN 100 MG CAP PO SCH (22:24)
[2021-11-05 06:09] LABS: BUN Creatinine Ratio 21.2 (10-20); Calcium 8.9 mg/dl (8.5-10.1); Est GFR (African American) 71.8 ml/min; Est GFR (Non-African American) 61.9 ml/min; Magnesium 1.9 mg/dl (1.7-2.4); Potassium 3.6 mmol/L (3.5-5.1)
--- NOTE | 2021-11-05 08:02 | Electrocardiogram Report ---
Test Reason : Blood Pressure : / mmHG Vent. Rate : 074 BPM Atrial Rate : 074 BPM P-R Int : 234 ms QRS Dur : 082 ms QT Int : 376 ms P-R-T Axes : 054 -14 032 degrees QTc Int : 417 ms Poor data quality, interpretation may be adversely affected Sinus rhythm with 1st degree A-V block with Premature supraventricular complexes and with occasional Premature ventricular complexes Otherwise normal ECG When compared with ECG of 08-JUL-2021 13:59, Premature ventricular complexes are now Present Confirmed by Trav Dietz ([id number]) on 11/05/2021 8:02:27 AM Referred By: Brinda Frye Confirmed By:Trav Dietz
[2021-11-05] MEDS: AMOXICILLIN/CLAVULANATE 875 MG TAB PO SCH ×2 (08:11→20:01)
[2021-11-05] MEDS: MULTIVITAMIN TAB PO SCH (08:11)
[2021-11-05] MEDS: SACCHAROMYCES BOULARDII 250 MG CAP PO SCH (08:11)
[2021-11-05] MEDS: ACETAMINOPHEN 500 MG TAB PO SCH ×3 (08:11→20:02)
[2021-11-05] MEDS: CHOLECALCIFEROL 5,000 UNITS 125 MCG TAB PO SCH (08:12)
[2021-11-05] MEDS: SULFAMETHOXAZOLE/TRIMETHOPRIM DS 800/160MG TAB PO SCH ×2 (08:12→20:01)
[2021-11-05] MEDS: ASCORBIC ACID 500 MG TAB PO SCH ×3 (08:12→20:01)
[2021-11-05] MEDS: ENOXAPARIN INJ 40 MG/0.4 ML SYR SQ SCH (08:12)
[2021-11-05] MEDS: traMADol HCL 50 MG TABLET PO PRN (09:06)
[2021-11-05] MEDS: LIDOCAINE 5% 1 PATCH TD SCH (11:36)
--- NOTE | 2021-11-05 15:06 | Hospitalist Progress Note ---
Date of Service November 05, 2021 Assessment & Plan (1) Left hip pain: Plan: Patient's had persistent chronic lower back pain from spinal stenosis and previous infection on chronic suppressive antibiotic therapy. Reportedly cannot undergo MRI scan due to the hardware that sling left in his back. With fall at home and inability ambulate safely the patient needs to be evaluated by physical Occupational Therapy and likely rehab candidate. No fractures seen on CT pelvis ESR and CRP normal Question if has fracture that is more readily seen on MRI but he cannot have MRI apparently Could be groin strain -Consult orthopedic surgery-he prefers not in any orthopedics as he was planning to transition to them anyway, however Dr. Oreilly did his right TKA and [facility] did his left TKA -Continue tramadol as needed for pain PT OT eval-recommends rehab (2) Osteomyelitis: Plan: Previous infectious disease at the patient on Augmentin and Bactrim as suppressive therapy for previous back osteomyelitis, per infectious disease note 2020 patient remains on these medications at this time ESR and CRP normal Blood cultures have no growth to date Afebrile Plan: Patient is a full code Lovenox for DVT prevention Disposition-needs rehab placement-discussed with case management Admission and Anticipated Discharge Date Admission Date: November 04, 2021 Subjective Patient complains of ongoing pain in the left lateral hip radiating into the groin and to the medial knee that is constant and worse with any movement or trying to bear weight. No pains anywhere else other than his chronic lower back issues. Review of Systems Review of Systems: All systems reviewed & are unremarkable except as noted in HPI & below Physical Exam Constitutional: WD/WN, vitals as above + obese Eyes: + anicteric sclerae Neck: trachea midline, no thyromegaly Respiratory: normal respiratory effort, lungs clear to auscultation Cardiovascular: RRR, no murmur, no edema Chest (Breasts): Chest: normal inspection of chest Gastrointestinal (Abdomen): normal bowel sounds, soft, nontender, no hepatosplenomegaly Musculoskeletal: Extremities: + extremities abnormal to inspection (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), no cyanosis and no clubbing Not able to actively flex at the left hip, can bend knee in the horizontal plane only, no issues with left ankle dorsiflexion plantarflexion Extreme pain with left lower extremity straight leg raise with pain being in the groin No masses palpable, no tenderness to palpation over left lateral hip Skin: no rashes, warm and dry Neurologic: moves all extremities and awake; no focal motor deficits Psychiatric: A+Ox3, euthymic affect Lymphatic: no lymphedema Results & Data Results & Data ([facility]) Vital Signs (Past 12 Hours) Vital Signs Temp Pulse Pulse Resp BP Pulse Ox 11/05/21 08:12 60 11/05/21 07:18 36.5 C 74 20 116/76 96 PG Care Time/CCT Total # of Minutes Spent Total Time Spent with Patient: Total time spent is greater than 50% in coordination of care (as documented) at patient's floor/unit and/or counseling patient: Coding Level of Care Code 24342 Subseq Hosp Care Lvl 2 Diagnoses Osteomyelitis M86.9 Left hip pain M25.552
[2021-11-05] MEDS: GABAPENTIN 100 MG CAP PO SCH (20:01)
[2021-11-06] MEDS: traMADol HCL 50 MG TABLET PO PRN (08:18)
[2021-11-06] MEDS: MULTIVITAMIN TAB PO SCH (08:19)
[2021-11-06] MEDS: ACETAMINOPHEN 500 MG TAB PO SCH ×3 (08:19→20:16)
[2021-11-06] MEDS: AMOXICILLIN/CLAVULANATE 875 MG TAB PO SCH ×2 (08:19→20:17)
[2021-11-06] MEDS: LIDOCAINE 5% 1 PATCH TD SCH (08:19)
[2021-11-06] MEDS: SULFAMETHOXAZOLE/TRIMETHOPRIM DS 800/160MG TAB PO SCH ×2 (08:19→20:17)
[2021-11-06] MEDS: CHOLECALCIFEROL 5,000 UNITS 125 MCG TAB PO SCH (08:19)
[2021-11-06] MEDS: ENOXAPARIN INJ 40 MG/0.4 ML SYR SQ SCH (08:20)
[2021-11-06 08:39] LABS: BUN Creatinine Ratio 16.7 (10-20); Calcium 9.1 mg/dl (8.5-10.1); Creatinine Clr Calc Pharmacy 81.3 ml/min; Est GFR (African American) 87.4 ml/min; Est GFR (Non-African American) 75.4 ml/min; Magnesium 1.8 mg/dl (1.7-2.4)
[2021-11-06] MEDS: SACCHAROMYCES BOULARDII 250 MG CAP PO SCH (10:39)
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
--- NOTE | 2021-11-06 14:59 | Hospitalist Progress Note ---
Date of Service November 06, 2021 Assessment & Plan (1) Left hip pain: Plan: Patient's had persistent chronic lower back pain from spinal stenosis and previous infection on chronic suppressive antibiotic therapy. Reportedly cannot undergo MRI scan due to the hardware that sling left in his back. With fall at home and inability ambulate safely the patient needs to be evaluated by physical Occupational Therapy and likely rehab candidate. No fractures seen on CT pelvis ESR and CRP normal Question if has fracture that is more readily seen on MRI but he cannot have MRI apparently Could be groin strain -Consult orthopedic surgery-he prefers not in any orthopedics as he was planning to transition to them anyway, however Dr. Oreilly did his right TKA and [facility] did his left TKA -Ortho recommends bone scan-on schedule for tomorrow -Continue tramadol as needed for pain PT OT eval-recommends rehab (2) Osteomyelitis: Plan: Previous infectious disease at the patient on Augmentin and Bactrim as suppressive therapy for previous back osteomyelitis, per infectious disease note 2019 patient remains on these medications at this time ESR and CRP normal Blood cultures have no growth to date Afebrile Plan: Patient is a full code Lovenox for DVT prevention Disposition-needs rehab placement-discussed with case management. Await bone scan tomorrow and if normal, can dc to rehab after that tomorrow Admission and Anticipated Discharge Date Admission Date: November 04, 2021 Anticipated date of discharge: 11/07/21 Subjective Still has severe pain in left groin with any movement. Otherwise no CP, SOB. No BM since admission. Eating well. Review of Systems Review of Systems: All systems reviewed & are unremarkable except as noted in HPI & below Physical Exam Constitutional: WD/WN, vitals as above + obese Eyes: + anicteric sclerae Neck: trachea midline, no thyromegaly Respiratory: normal respiratory effort, lungs clear to auscultation Cardiovascular: RRR, no murmur, no edema Chest (Breasts): Chest: normal inspection of chest Gastrointestinal (Abdomen): normal bowel sounds, soft, nontender, no hepatosplenomegaly Musculoskeletal: Extremities: + extremities abnormal to inspection (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), no cyanosis and no clubbing Skin: no rashes, warm and dry Neurologic: moves all extremities and awake; no focal motor deficits Psychiatric: A+Ox3, euthymic affect Lymphatic: no lymphedema Results & Data Results & Data ([facility]) Vital Signs (Past 12 Hours) Vital Signs Temp Pulse Resp BP Pulse Ox 11/06/21 07:50 36.6 C 71 16 114/73 97 Laboratory Results 11/06/21 Range/Units 08:04 Sodium 135 L (136-145) mmol/L Potassium 4.0 (3.5-5.1) mmol/L Chloride 104 (98-107) mmol/L Carbon Dioxide 27 (21-32) mmol/L Anion Gap 4 (3-11) BUN 16 (6-23) mg/dl Creatinine 0.96 (0.6-1.4) mg/dl Est Cr Clr Drug Dosing 81.3 ml/min Est GFR ( Amer) 87.4 ml/min Est GFR (Non-Af Amer) 75.4 ml/min BUN/Creatinine Ratio 16.7 (10-20) Glucose 95 (70-99(Fasting)) mg/dl Calcium 9.1 (8.5-10.1) mg/dl Magnesium 1.8 (1.7-2.4) mg/dl PG Care Time/CCT Total # of Minutes Spent Total Time Spent with Patient: Total time spent is greater than 50% in coordination of care (as documented) at patient's floor/unit and/or counseling patient: Coding Level of Care Code 81342 Subseq Hosp Care Lvl 2 Diagnoses Left hip pain M25.552 Osteomyelitis M86.9
[2021-11-06] MEDS: ASCORBIC ACID 500 MG TAB PO SCH (16:59)
[2021-11-06] MEDS: GABAPENTIN 100 MG CAP PO SCH (20:17)
[2021-11-07] MEDS: traMADol HCL 50 MG TABLET PO PRN ×2 (08:04→14:52)
[2021-11-07] MEDS: ASCORBIC ACID 500 MG TAB PO SCH (08:05)
[2021-11-07] MEDS: AMOXICILLIN/CLAVULANATE 875 MG TAB PO SCH (08:05)
[2021-11-07] MEDS: SULFAMETHOXAZOLE/TRIMETHOPRIM DS 800/160MG TAB PO SCH (08:05)
[2021-11-07] MEDS: MULTIVITAMIN TAB PO SCH (08:05)
[2021-11-07] MEDS: ACETAMINOPHEN 500 MG TAB PO SCH ×2 (08:05→13:46)
[2021-11-07] MEDS: ENOXAPARIN INJ 40 MG/0.4 ML SYR SQ SCH (08:06)
[2021-11-07] MEDS: LIDOCAINE 5% 1 PATCH TD SCH (08:06)
[2021-11-07] MEDS: SACCHAROMYCES BOULARDII 250 MG CAP PO SCH (08:06)
[2021-11-07] MEDS: CHOLECALCIFEROL 5,000 UNITS 125 MCG TAB PO SCH (08:06)
--- NOTE | 2021-11-07 11:45 | Nuclear Medicine Report ---
NM bone scan limited area CLINICAL HISTORY: left hip pain (include pelvis/lower extremity). Recent fall. COMPARISON STUDY: Left hip and pelvis radiographs and CT of the left hip November 04, 2021. Right knee rad iographs October 10, 2021. TECHNIQUE: 27 mCi of technetium 99m MDP was injected IV at 7:36 AM on November 07, 2021. 3 hours following injection, some images of the pelvis, hips, femurs and tibia and fibula were obtained. FINDINGS: Expected renal, soft tissue and bladder uptake is present. There is no uptake within the le ft hip to suggest fracture. Uptake adjacent to bilateral knee arthroplasties is likely reactive. Ther e is no radiotracer uptake within the femurs or visualized portions of the bilateral tibia or fibula to suggest fracture. Mild uptake within the thoracolumbar spine is likely degenerative. IMPRESSION: 1. No scintigraphic evidence for acute fracture within the pelvis, hips, femurs or visualized portion s of the lower legs. 2. Uptake adjacent to the knee arthroplasties which is nonspecific although likely reactive. ACT 112: Negative or not required by law. Electronically signed by: Magen Rosales M.D. 11/07/2021 11:43 AM
--- NOTE | 2021-11-07 14:00 | Discharge Summary ---
Date of Service November 07, 2021 Admission HPI Per Admitting Provider Patient's status post a fall at home onto his couch landing on a supportive board. Patient had some hip discomfort at that time but he decided to sleep on the couch. The patient woke up and realized he was having difficulty ambulating. He called EMS when he was a two-person assist. Patient is unable ambulate in the emergency department a CT scan of the hip was performed showing no evidence of acute fracture or dislocation. Patient's neurological examination does not show any abnormalities of CBC or chemistries. Urinalysis is pending. Patient is being brought into facility for evaluation for likely therapy and placement plus pain control from contusion to hip Principal Diagnosis Left hip strain, fall Discharge Exam Constitutional WD/WN, vitals as above + obese Eyes + anicteric sclerae Neck trachea midline, no thyromegaly Respiratory normal respiratory effort, lungs clear to auscultation Cardiovascular RRR, no murmur, no edema Chest (Breasts) Chest: normal inspection of chest Gastrointestinal (Abdomen) normal bowel sounds, soft, nontender, no hepatosplenomegaly Musculoskeletal Extremities: + extremities abnormal to inspection (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), no cyanosis and no clubbing +pain in left PSIS and groin with minimal LLE raise passively Skin no rashes, warm and dry Neurologic moves all extremities and awake; no focal motor deficits (but LLE flexion limited by pain) Psychiatric A+Ox3, euthymic affect Lymphatic no lymphedema Discharge Data Allergies Allergy/AdvReac Type Severity Reaction Status Date / Time No Known Allergies Allergy ` Verified 11/04/21 17:06 Consultations 11/04/21 17:04 ED Decision to Admit Stat 11/05/21 15:03 Consult Orthopedic Surgery Routine Ordered Studies 11/04/21 11:13 CT hip LT wo con Stat Hospital Course (1) Left hip pain: Presented with severe left hip pain after he tripped and fell at home prior to admission Pain located in lateral hip as well as groin No fractures seen on CT pelvis ESR and CRP normal Question if has fracture that is more readily seen on MRI but he cannot have MRI apparently Bone scan ordered by Ortho is negative Likely groin strain, possibly some arthritis in hip contributing -Consult orthopedic surgery-he prefers not in any orthopedics as he was planning to transition to them anyway, however Dr. Oreilly did his right TKA and [facility] did his left TKA -Ortho recommends bone scan-on schedule for tomorrow -Continue tramadol as needed for pain PT OT eval-recommends rehab (2) Osteomyelitis: Previous infectious disease at the patient on Augmentin and Bactrim as suppressive therapy for previous back osteomyelitis, per infectious disease note 2020 patient remains on these medications at this time ESR and CRP normal Blood cultures have no growth to date Afebrile Patient is a full code Lovenox for DVT prevention Disposition-needs rehab placement-discussed with case management. Await bone scan tomorrow and if normal, can dc to rehab after that tomorrow Discharge Plan Discharge Items Patient Disposition: Transfer [facility] Reason For Visit: FALL Discharge Diagnosis: Fall, left hip pain Condition on Discharge: Fair Activity: As commented below Lifting: Gradually increase as tolerated Bathing: No limitations Exercise/Sports: Gradually increase as tolerated Weightbearing: Left weightbearing Weightbearing Comment: as tolerated Non-emergency contact: Primary Care Provider and Surgeon Call non-emergency contact if: you have any medication questions, your symptoms worsen and your pain is not controlled Follow-up/Referrals: Iggy Gomez MD [Physician] - (Please follow up within 2 weeks.) Brinda Frye [Primary Care Provider] - Diet: Heart Healthy Addtl Attending Provider Instructions: You were admitted with left hip pain after a fall. You had xrays, CT scan, and a bone scan which were all negative for fracture. Please continue pain control, physical and occupational therapy at rehab so that you are able to walk again. Pending Studies at Discharge: No Stand-Alone Forms: [facility] Skilled Items Patient informed of condition?: Yes DNR: No Discharge Level of Care: Skilled Communicable Disease: No Discharge Prognosis: Stable Lines: None Urinary Catheter: No Medications and DC Order Prescriptions: New tramadol 50 mg Tablet 100 mg PO Q6H PRN (Reason: moderate-severe pain) Qty: 20 RF: 0 acetaminophen [Tylenol Extra Strength] 500 mg Tablet 1,000 mg PO TID Qty: 180 RF: 0 oxycodone 5 mg Tablet 10 mg PO Q6H PRN (Reason: severe pain (scale score 7-10)) Qty: 10 RF: 0 polyethylene glycol 3350 [Miralax] 17 gram Powder In Packet 17 g PO DAILY PRN (Reason: constipation) Qty: 30 RF: 0 lidocaine 5 % Adhesive Patch,Medicated 1 patch transdermal QAM Qty: 30 RF: 0 Saccharomyces boulardii [Florastor] 250 mg Capsule 250 mg PO DAILY Qty: 30 RF: 0 diclofenac sodium [Voltaren Arthritis Pain] 1 % gel 4 g topical QID Qty: 100 RF: 0 Continued ascorbic acid (vitamin C) [Vitamin C] 500 mg Tablet 500 mg PO BIDM Qty: 30 RF: 0 Probiotic 3 billion cell Capsule 0 mmu cells PO DAILY RF: 0 multivitamin Tablet 1 tab PO DAILY RF: 0 cholecalciferol (vitamin D3) [Vitamin D3] 125 mcg (5,000 unit) Tablet 125 mcg PO DAILY RF: 0 sulfamethoxazole-trimethoprim [Bactrim DS] 800-160 mg tablet 1 tab PO BID Qty: 60 RF: 0 gabapentin 100 mg capsule 200 mg PO HS Qty: 60 RF: 0 amoxicillin-pot clavulanate 875-125 mg tablet 1 tab PO BID Qty: 60 RF: 0 Discontinued acetaminophen [Tylenol Extra Strength] 500 mg Tablet 1,000 mg PO Q6H PRN (Reason: Fever Or Pain) RF: 0 tramadol [Ultram] 50 mg tablet 50 mg PO Q6H PRN (Reason: pain) Qty: 30 RF: 0 Discharge Orders: Discharge Order (Routine); Ordered 11/07/21 Ordered By: Khadijah Mondragon Admission Data Admit Date/Time: 11/04/21 17:30 Attending Provider: Khadijah Mondragon Admit Provider: Mir Bear Primary Care Provider: Brinda Frye Other Providers: Mir Bear ; [facility] ; [facility] ; Brodie Hunter Other Interventions: Discharge Summary Assessment (RN) Last Done: 11/07/21 14:35 Coding Diagnoses Left hip pain M25.552 Osteomyelitis M86.9
== END 2021-11-07 15:20 ==
LOC: ED 09:50 → 3W 09:50 → SUATTDRO 17:30 → 3W 20:23